=== PATIENT | female | born 1995 | race African-American/Black ===

== ENCOUNTER 2017-01-20 19:01 | Emergency (ER) | payer MEDICAID, OTHER ==
[~2017-01-20] VITALS: Ht 162.6 cm; Wt 72.3 kg
[2017-01-20 19:09] VITALS: BP 134/71; PULSE 77; RESP 16; TEMP 98.7; O2SAT 100
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
[2017-01-20] MEDS ORDERED: ROBA500T PO (19:44)
[2017-01-20] MEDS ORDERED: ORPHENADRINE INJ 60 MG/2 ML AMP IM ONE (19:45)
== END 2017-01-20 20:06 | disposition home or self-care (01) ==
LOC: PHEFT 19:01
DX: S13.4XXA Sprain of ligaments of cervical spine, initial encounter (principal); V49.50XA Passenger injured in collision with unspecified motor vehicles in traffic accident, initial encounter
CPT/HCPCS: 96372; 99284; J2360

== ENCOUNTER 2017-07-18 19:31 | Emergency (ER) | payer MEDICAID, OTHER ==
[~2017-07-18 19:31] MED LIST: ROBA500T PO
[2017-07-18 19:46] VITALS: BP 125/65; PULSE 104; RESP 20; TEMP 99.1; O2SAT 97
[2017-07-18 20:09] VITALS: BP 113/65; PULSE 112; RESP 18; O2SAT 98
[2017-07-18] MEDS ORDERED: PREN1PAK9 (20:09)
--- NOTE | 2017-07-18 20:10 | PD ---
HPI Chief Complaint: Cold / Flu Symptoms Time Seen by Provider: 20:02 Travel History International Travel<30 days: No Contact w/Intl Traveler<30days: No Traveled to known affect area: No History of Present Illness HPI 22-year-old female complains of headache, sore throat, coughing congestion and fever. Patient states that the symptoms started about 4 days ago. Patient states that headache is aching headache diffuse over the head. Patient denies any visual change. Patient denies any neck pain. Patient states that the cough is intermittent and dry cough. Patient denies any chest pain or shortness of breath. Patient denies abdominal pain. Patient denies any nausea vomiting diarrhea. Patient denies any dysuria frequency. Patient denies any vaginal discharge or bleeding. Patient is 2-1/2 month . Patient is taking vitamins. PFSH Past Medical History ?: Not LMP: 2.5 MONTHS AGO Social History Alcohol Use: Yes (occ) Tobacco Use: No Allergies-Medications (Allergen,Severity, Reaction): Coded Allergies: No Known Allergies (Verified Adverse Reaction, Unknown, 07/18/17) Reported Meds & Prescriptions Reported Meds & Active Scripts Active Robaxin (Methocarbamol) 500 Mg Tab 500 Mg PO QID 3 Days Reported + Complete Multi 18-0.8 & 290 mg ( Mv & Min W/Fe Prot [place]) 18 Mg Iron-800 Mcg-290 Mg-225 Mg Sudheer Review of Systems General / Constitutional: Positive: Fever Eyes: No: Visual changes HENT: Positive: Headaches, Sore Throat Cardiovascular: No: Chest Pain or Discomfort Respiratory: Positive: Cough, No: Shortness of Breath Gastrointestinal: No: Abdominal Pain Genitourinary: No: Dysuria Musculoskeletal: No: Pain Skin: No Rash Neurologic: No: Weakness Psychiatric: No: Depression Endocrine: No: Polydipsia Hematologic/Lymphatic: No: Easy Bruising Physical Exam Narrative GENERAL: Well-nourished, well-developed patient. SKIN: Focused skin assessment warm/dry. HEAD: Normocephalic. EYES: No scleral icterus. No injection or drainage. TM: Clear. Throat: Mild erythematous with edema. No exudate. NECK: Supple, trachea midline. No JVD. Patient has mild anterior cervical lymphadenopathy. No meningismus CARDIOVASCULAR: Regular rate and rhythm without murmurs, gallops, or rubs. RESPIRATORY: Breath sounds equal bilaterally. No accessory muscle use. GASTROINTESTINAL: Abdomen soft, non-tender, nondistended. MUSCULOSKELETAL: No cyanosis, or edema. BACK: Nontender without obvious deformity. No CVA tenderness. Data Data Last Documented VS Vital Signs Date Time Temp Pulse Resp B/P (MAP) Pulse Ox O2 Delivery O2 Flow Rate FiO2 07/18/17 20:09 112 18 113/65 (81) 98 Room Air 07/18/17 19:46 99.1 Orders Orders Group A Rapid Strep Screen (07/18/17 20:06) Influenzae A/B Antigen (07/18/17 20:06) Strep Culture (Group A) (07/18/17 20:10) MDM Medical Decision Making Medical Screen Exam Complete: Yes Emergency Medical Condition: Yes Interpretation(s) Influenza AB antigen negative. Strep screen negative. Differential Diagnosis Differential diagnosis complaint viral syndrome, pharyngitis, bronchitis, pneumonia. Narrative Course 22-year-old female with fever, headache, sore throat, coughing congestion. Diagnosis Primary Impression: Viral syndrome Patient Instructions: General Instructions Additional Instructions: Tylenol for fever, headache. Follow-up with personal physician. Return if persistent problem or worse. Med/Other Pt SpecificInfo: No Meds Exist/No RX given Disposition: 01 DISCHARGE HOME Condition: Stable Adama Aguilar MD Jul 18, 2017 20:10
[2017-07-18 21:39] VITALS: BP 120/68
== END 2017-07-18 21:47 | disposition home or self-care (01) ==
LOC: PHED 19:31
DX: O98.811 Other maternal infectious and parasitic diseases complicating pregnancy, first trimester (principal); B34.9 Viral infection, unspecified
CPT/HCPCS: 87081; 87804; 87880; 99283

== ENCOUNTER 2018-01-11 23:36 | Inpatient (IN) ==
[2018-01-12] MEDS ORDERED: fentaNYL Citrate Inj 100 MCG/2 ML Ampul IV.PUSH PRN ×2 (00:04)
[2018-01-12] MEDS ORDERED: Naloxone Inj 0.4 MG/ML Vial IV.PUSH PRN ×2 (00:04→07:53)
[2018-01-12] MEDS ORDERED: Oxytocin 30 Units/500ml Premix 30 UNITS/500 ML BAG IV.SIG ONE (00:04)
[2018-01-12] MEDS ORDERED: Sodium Chlor 0.9% Inj 500 ML IV.SIG PRN (00:04)
[2018-01-12] MEDS ORDERED: Sod Chloride 0.9% Inj 1,000 ML IV.CONT PRN (00:04)
[2018-01-12 00:15] LABS: Baso % (Auto) 0.3 % (0.0-2.0); Eos # (Auto) 0.1 th/mm3 (0.0-0.4); Eos % (Auto) 1.1 % (0.0-4.0); Hematocrit 36.8 % (35.0-46.0); Hemoglobin 12.3 gm/dL (11.6-15.3); Lymph # (Auto) 2.1 th/mm3 (1.0-4.8); Lymph % (Auto) 18.4 % (9.0-44.0); Mean Corpuscular HGB Conc 33.5 % (32.0-36.0); Mean Corpuscular Hemoglobin 28.6 pg (27.0-34.0); Mean Corpuscular Volume 85.4 fL (80.0-100.0); Mean Platelet Volume 9.7 fL (7.0-11.0); Mono # (Auto) 1.5 th/mm3 (0.0-0.9); Mono % (Auto) 13.2 % (0.0-8.0); Neut # (Auto) 7.8 th/mm3 (1.8-7.7); Platelet Count 190 th/mm3 (150-450); Red Blood Count 4.31 mil/mm3 (4.00-5.30); Red Cell Distribution Width 14.2 % (11.6-17.2); White Blood Count 11.7 th/mm3 (4.0-11.0)
[2018-01-12] MEDS ORDERED: Citric Acid/Sodium Citrate Liq 30 ML UDC PO SCH (00:15)
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
[2018-01-12] MEDS ORDERED: fentaNYL 2MCG-Bupiv 0.125% Epi 150 ML EPIDURAL ONE (00:25)
--- NOTE | 2018-01-12 00:32 | P.HPOB ---
History of Present Illness Primary Care Physician: NOT REQUIRED Chief Complaint: Loss of fluids History of Present Illness: 22 year old female at 37 weeks and 6 days by LMP presents after loss of fluids at 11 pm tonight. The fluid was clear. Contractions started at 7 pm and were 4 minutes apart. Feeling baby moving. Denies any vaginal bleeding. Denies any SOB, CP, edema of legs, or headache. No nausea, vomiting, painful urination or increased frequency. She has had no complications during her . Limited care with Dr. Pathak in [place] (only two visits and no recent labs). Denies any alcohol or tobacco use. GBS status unknown. Patient interested in epidural. No previous medical conditions or surgical history. Takes vitamins Denies any allergies. Weeks Gestation:: 37 Para: 0 : 1 Review of Systems Constitutional: Denies headache(s) Cardiovascular: Denies chest pain Respiratory: Denies cough, Denies shortness of breath, Denies wheezing Gastrointestinal: Denies abdominal pain, Denies nausea, Denies vomiting Genitourinary: Denies difficulty urinating, Denies painful urination Musculoskeletal: Denies joint swelling Skin/Breast: Denies rash Neurologic: Denies headache(s), Denies seizure-like activity Psychiatric: Denies change in appetite Endocrine: Denies rapid, pounding, or irregular heartbeat Allergic/Immunologic: Denies hives PMFSH - History History Provided By: Patient - Tobacco History Second Hand Smoke Exposure: No Smoking Status: Never smoker - Alcohol History How Often Do You Have a Drink Containing Alcohol: Never - Substance Use History Substance History: No History of Abuse - Travel History History of Recent Travel: No Medications and Allergies Active Medications: Active Medications Citric Acid/Sodium Citrate (Sodium Citrate/Citric Acid Liq) 30 ml PO [facility] Stop: 01/16/18 00:14 Fentanyl Citrate (Fentanyl Inj) 100 mcg IV.PUSH Q1H PRN PRN Reason: PAIN SCALE 6 TO 10 Fentanyl Citrate (Fentanyl Inj) 50 mcg IV.PUSH Q1H PRN PRN Reason: Pain Scale 3 - 5 Sodium Chloride (Ns Inj) 500 mls @ 1,000 mls/hr IV.SIG UNSCH PRN PRN Reason: SEE LABEL COMMENTS Sodium Chloride (Ns Inj) 1,000 mls @ 100 mls/hr IV.CONT .Q10H PRN PRN Reason: SEE LABEL COMMENTS Oxytocin (Pitocin 30 Units/Ns 500 Ml Premix) 30 units in 500 mls @ 999 mls/hr IV.SIG BOLUS ONE Stop: 01/12/18 00:34 Lactated Ringer's (Lr 1000 Ml Inj) 1,000 mls @ 125 mls/hr IV.CONT .Q8H MARITZA Lactated Ringer's (Lr 1000 Ml Inj) 1,000 mls @ 3,000 mls/hr IV.SIG UNSCH PRN PRN Reason: compromise or epidural Lidocaine HCl (Xylocaine 1% Inj) 0.1 ml I-DERMAL PRN PRN PRN Reason: For IV start Stop: 01/15/18 00:03 Lidocaine HCl (Xylocaine 1% Inj) 10 ml INFILTRATN PRN PRN PRN Reason: For episiotomy repair Stop: 01/14/18 00:03 Mineral Oil (Muri-Lube Oil) 10 ml TOPICAL PRN PRN PRN Reason: PRN perineal massage Naloxone HCl (Narcan Inj) 0.1 mg IV.PUSH Q2M PRN PRN Reason: for opiate reversal Ondansetron HCl (Zofran Inj) 4 mg IV.PUSH Q6H PRN PRN Reason: NAUSEA OR VOMITING Allergies Allergy/AdvReac Type Severity Reaction Status Date / Time No Known Allergies Allergy Unknown none Uncoded 01/11/18 19:57 Home Medications Medication Instructions Recorded Confirmed Type vit-iron fum-folic ac 1 tab PO DAILY 01/11/18 01/11/18 History [ Vitamin] Exam Vital signs: Vital Signs 01/11/18 23:52 01/11/18 23:53 Temperature 98.1 F Pulse Rate 82 Respiratory Rate 16 Blood Pressure 110/62 Intake & Output 01/11/18 01/11/18 01/12/18 06:59 18:59 06:59 Weight 70.76 kg Narrative: GENERAL: Well-nourished, well-developed patient. SKIN: Warm and dry. HEAD: Normocephalic and atraumatic. EYES: No scleral icterus. No injection or drainage. ENT: No nasal drainage noted. Mucous membranes pink. Airway patent. NECK: Supple, trachea midline. No JVD. CARDIOVASCULAR: Regular rate and rhythm without murmurs, gallops, or rubs. RESPIRATORY: Breath sounds equal bilaterally. No accessory muscle use. BREASTS: Bilateral exam showed no masses , no retractions, no nipple discharge. ABDOMEN/GI: Abdomen soft, non-tender, bowel sounds present, no rebound, no guarding GENITOURINARY: External Genitalia: intact and normal in appearance Cervix: mid Dilatation: 3 Effacement: 90 Station: 0 Presentation: vertex Membranes: ruptured Uterine Contractions: 4 min FHT's: Category: 1 Baseline: 144 Reactive: yes Variability: moderate Decels: none EXTREMITIES: No cyanosis or edema. BACK: Nontender without obvious deformity. No CVA tenderness. NEUROLOGICAL: Awake and alert. Motor and sensory grossly within normal limits. Five out of 5 muscle strength in all muscle groups. Normal speech. Results - Labs CBC & Chem 7: 01/12/18 00:09 Labs: Laboratory Results - last 24 hr 01/12/18 00:09 WBC 11.7 H RBC 4.31 Hgb 12.3 Hct 36.8 MCV 85.4 MCH 28.6 MCHC 33.5 RDW 14.2 Plt Count 190 MPV 9.7 Neut % (Auto) 67.0 Lymph % (Auto) 18.4 [place] % (Auto) 13.2 H Eos % (Auto) 1.1 Baso % (Auto) 0.3 Neut # (Auto) 7.8 H Lymph # (Auto) 2.1 [place] # (Auto) 1.5 H Eos # (Auto) 0.1 Baso # (Auto) 0.0 WBC Differential . Differential Comment Auto diff final Caprini VTE Risk Assessment Caprini VTE Risk Assessment: Moderate/High Risk (score >= 2) Caprini Risk Assessment Model: Point Value = 1 Point Value = 2 Point Value = 3 Point Value = 5 Age 41-60 Minor surgery BMI > 25 kg/m2 Swollen legs Varicose veins or History of unexplained or recurrent spontaneous Oral contraceptives or hormone replacement Sepsis (< 1 month) Serious lung disease, including pneumonia (< 1 month) Abnormal pulmonary function Acute myocardial infarction Congestive heart failure (< 1 month) History of inflammatory bowel disease Medical patient at bed rest Age 61-74 Arthroscopic surgery Major open surgery (> 45 min) Laparoscopic surgery (> 45 min) Malignancy Confined to bed (> 72 hours) Immobilizing plaster cast Central venous access Age >= 75 History of VTE Family history of VTE Factor V Leiden Prothrombin [id number] Lupus anticoagulant Anticardiolipin antibodies Elevated serum homocysteine Heparin-induced thrombocytopenia Other congenital or acquired thrombophilia Stroke (< 1 month) Elective arthroplasty Hip, pelvis, or leg fracture Acute spinal cord injury (< 1 month) Prophylaxis Regimen: Total Risk Factor Score Risk Level Prophylaxis Regimen 0-1 Low Early ambulation 2 Moderate Order ONE of the following: *Sequential Compression Device (SCD) *Heparin 5000 units SQ BID 3-4 Higher Order ONE of the following medications: *Heparin 5000 units SQ TID *Enoxaparin/Lovenox 40 mg SQ daily (WT < 150 kg, CrCl > 30 mL/min) *Enoxaparin/Lovenox 30 mg SQ daily (WT < 150 kg, CrCl > 10-29 mL/min) *Enoxaparin/Lovenox 30 mg SQ BID (WT < 150 kg, CrCl > 30 mL/min) AND/OR *Sequential Compression Device (SCD) 5 or more Highest Order ONE of the following medications: *Heparin 5000 units SQ TID (Preferred with Epidurals) *Enoxaparin/Lovenox 40 mg SQ daily (WT < 150 kg, CrCl > 30 mL/min) *Enoxaparin/Lovenox 30 mg SQ daily (WT < 150 kg, CrCl > 10-29 mL/min) *Enoxaparin/Lovenox 30 mg SQ BID (WT < 150 kg, CrCl > 30 mL/min) AND *Sequential Compression Device (SCD) Assessment and Plan - Diagnosis (1) Uterine contractions during Code(s): O62.2 - Other uterine inertia Status: Acute Plan: 22-year-old female at 37 weeks and 6 days by LMP presents with loss of fluid and uterine contractions. Denies any vaginal bleeding or decreased movement. Category 1 tracing reactive no decel and moderate variability. Cervical exam dilated 3 cm 90% and 0 station. Admit to labor and delivery GBS testing: Limited care unknown at this time UDS, G/C testing -Continue to monitor heart tracing
[2018-01-12] MEDS ORDERED: Lidocaine PF 1% Inj 5 ML Vial ONE (00:34)
[2018-01-12] MEDS ORDERED: Lidocaaine 1.5%/Epinephrine 1:200,000 PF Inj 5 ML Amp ONE (00:34)
[2018-01-12] MEDS ORDERED: Oxytocin 30 Units/500ml Premix 30 UNITS/500 ML BAG IV.SIG PRN (00:39)
[2018-01-12 00:44] LABS: Amphetamine Urine With Conf Neg (Neg); Benzodiazepine Urine With Conf Neg (Neg)
[2018-01-12 00:47] LABS: Bacteria,Urine Moderate /hpf; Bilirubin,Urine Negative (Negative); Clarity,Urine Cloudy (Clear); Color,Urine Yellow (Yellw/Straw); Glucose,Urine (UA) Negative (Negative); Leukocyte Esterase,Urine Large (Negative); Mucus,Urine Few /lpf (Occasional); Nitrite,Urine Negative (Negative); Specific Gravity,Urine 1.005 (1.002-1.035); Squamous Epithelial Cell,Urine 4 /hpf (0-5)
[2018-01-12] MEDS ORDERED: fentaNYL 2MCG-Bupiv 0.125% Epi 150 ML EPIDURAL PRN (01:01)
[2018-01-12] MEDS ORDERED: fentaNYL Citrate Inj 100 MCG/2 ML Ampul EPIDURAL ONE (01:01)
[2018-01-12 01:37] LABS: Hepatitis A IgM Antibody Nonreactive (Nonreactive); Hepatitits B Surface Antigen Nonreactive (Nonreactive)
[2018-01-12] MEDS ORDERED: Methylergonovine Inj 0.2 MG/ML Ampul ONE (07:51)
[2018-01-12] MEDS ORDERED: Acetaminophen 325 MG Tablet PO PRN (07:53)
[2018-01-12] MEDS ORDERED: Bisacodyl 10 MG Supp RECTAL PRN (07:53)
[2018-01-12] MEDS ORDERED: Methylergonovine Inj 0.2 MG/ML Ampul IM ONE (07:53)
[2018-01-12] MEDS ORDERED: Oxytocin 30 Units/500ml Premix 30 UNITS/500 ML BAG IV.CONT PRN (07:53)
[2018-01-12] MEDS ORDERED: Benzocaine 20% Top Spray 60 ML Can TOPICAL PRN (07:53)
[2018-01-12] MEDS ORDERED: Witch Hazel 50%/Glyderin 12.5% 40 Pad Jar RECTAL PRN (07:53)
--- NOTE | 2018-01-12 08:30 | P.OBDELI ---
Weeks Gestation: 37 Patient Started Active Labor: Yes Artificial Rupture of Membrane: No Anesthesia: Epidural Episiotomy: none Vaginal Delivery: Normal, Spontaneous Presentation: Occiput anterior Nuchal Cord: None Delayed Cord Clamping (45 sec): Yes Laceration: 1 deg (and b/l labial) Repair: Vicryl running Estimated blood loss (mL): 700 (methergine IM given, mostly EBL from lacerations ) Infant: Male Male A Infant Delivery Date: 01/12/18 Weight: 2655 kg score (1 min): 9 score (5 min): 9
[2018-01-12] MEDS ORDERED: Silver Nitrate/Potassium Nitrate Applicator Sticks TOPICAL ONE ×2 (09:30→10:33)
--- NOTE | 2018-01-12 09:44 | P.OBGPN ---
CTSP by Resident. When Raytec removed from vagina, constant trickling was seen. I examined pt. Fundus tender and no clots in BUFFY. Oozing from lateral lacerations. 100cc additional EBL. Vaginal packing placed along with soria. Continue to monitor.
[2018-01-12] MEDS: Senna/Docusate Sodium 8.6/50 MG Tablet PO SCH (10:43)
[2018-01-12 12:23] LABS: Baso % (Auto) 0.2 % (0.0-2.0); Eos % (Auto) 0.1 % (0.0-4.0); Hemoglobin 11.6 gm/dL (11.6-15.3); Lymph # (Auto) 0.8 th/mm3 (1.0-4.8); Lymph % (Auto) 4.3 % (9.0-44.0); Mean Corpuscular HGB Conc 33.2 % (32.0-36.0); Mean Corpuscular Hemoglobin 28.5 pg (27.0-34.0); Mean Corpuscular Volume 85.9 fL (80.0-100.0); Mean Platelet Volume 10.1 fL (7.0-11.0); Mono # (Auto) 1.7 th/mm3 (0.0-0.9); Mono % (Auto) 9.2 % (0.0-8.0); Neut # (Auto) 16.1 th/mm3 (1.8-7.7); Neut % (Auto) 86.2 % (16.0-70.0); Platelet Count 179 th/mm3 (150-450); Red Blood Count 4.07 mil/mm3 (4.00-5.30); White Blood Count 18.7 th/mm3 (4.0-11.0)
[2018-01-12] MEDS: miSOPROStol 200 MCG Tablet PO SCH ×2 (14:30→18:03)
[2018-01-12 14:35] LABS: Baso % (Auto) 0.1 % (0.0-2.0); Eos % (Auto) 0.1 % (0.0-4.0); Hematocrit 33.4 % (35.0-46.0); Hemoglobin 11.2 gm/dL (11.6-15.3); Lymph % (Auto) 5.5 % (9.0-44.0); Mean Corpuscular HGB Conc 33.5 % (32.0-36.0); Mean Corpuscular Hemoglobin 28.9 pg (27.0-34.0); Mean Corpuscular Volume 86.2 fL (80.0-100.0); Mean Platelet Volume 10.5 fL (7.0-11.0); Mono # (Auto) 1.9 th/mm3 (0.0-0.9); Mono % (Auto) 9.8 % (0.0-8.0); Neut # (Auto) 15.9 th/mm3 (1.8-7.7); Neut % (Auto) 84.5 % (16.0-70.0); Platelet Count 167 th/mm3 (150-450); Red Blood Count 3.87 mil/mm3 (4.00-5.30); Red Cell Distribution Width 14.1 % (11.6-17.2); White Blood Count 18.9 th/mm3 (4.0-11.0)
--- NOTE | 2018-01-12 14:43 | P.OBGPN ---
This is a patient who was signed out to me. Delivered with Dr. Wood. Noted to have bilateral labial lacerations per Dr. Wood EBL was 800 cc. I have seen the patient a total of 3 times she was seen approximately 3 hours postdelivery which is why started call the labial lacerations were noted to be hemostatic after packing removed. I subsequently cleansed the area applied I do not soaked gauze. Serial CBCs. And the last evaluation the laceration of the labia noted to be hemostatic no active fresh bright red bleeding noted. H& H noted to be stable we are waiting one additional. Patient also noted to be hemodynamically stable. Vital signs stable. Plan to be discharged to mother baby once last CBC comes back.
[2018-01-12] MEDS ORDERED: Diphtheria/Tetanus/Pertussis Vaccine Inj 0.5 ML Syringe IM ONE (16:00)
[2018-01-12] MEDS ORDERED: Measles/Mumps/Rubella Vaccine Inj 0.5 ML Vial SQ ONE (16:00)
[2018-01-12] MEDS ORDERED: Zolpidem Tartrate 5 MG Tablet PO PRN (21:00)
[2018-01-13] MEDS: Senna/Docusate Sodium 8.6/50 MG Tablet PO SCH ×2 (06:05→08:31)
[2018-01-13] MEDS: miSOPROStol 200 MCG Tablet PO SCH ×2 (08:31→12:34)
--- NOTE | 2018-01-13 08:43 | P.PNOB ---
Subjective Post day: 1 Interval history: Patient is a 22-year-old delivered at 37 weeks and 6 days. Patient is day 1 after spontaneous vaginal delivery. Patient's pain is well- controlled. Patient reports eating and drinking without any nausea or vomiting. Patient reports minimal bleeding. She had bilateral labial lacerations. Patient has passed gas but no bowel movements. Patient is walking without lower extremity pain or shortness of breath. Patient reports she is still contemplating contraception. She is breast-feeding. Objective Vital Signs/I&O: Vital Signs 01/12/18 08:45 01/12/18 09:00 01/12/18 09:01 Temperature 98.6 F Pulse Rate 67 75 92 H Respiratory Rate 18 18 Blood Pressure 113/73 113/68 75/35 L 01/12/18 09:09 01/12/18 09:15 01/12/18 09:16 Temperature Pulse Rate 72 Respiratory Rate 18 Blood Pressure 88/70 L 111/64 01/12/18 09:31 01/12/18 09:46 01/12/18 10:16 Temperature Pulse Rate 72 79 68 Respiratory Rate Blood Pressure 127/61 110/70 130/72 01/12/18 10:31 01/12/18 10:46 01/12/18 11:42 Temperature Pulse Rate 68 71 Respiratory Rate 18 Blood Pressure 118/65 117/73 01/12/18 12:01 01/12/18 14:06 01/12/18 14:23 Temperature Pulse Rate 90 Respiratory Rate 18 18 Blood Pressure 99/81 L 01/12/18 15:13 01/12/18 20:00 01/13/18 07:50 Temperature 98.1 F 98.5 F Pulse Rate 64 64 Respiratory Rate 18 18 Blood Pressure 100/66 112/68 105/61 Result Diagrams: 01/12/18 13:50 Objective Remarks: GENERAL: Well-nourished, well-developed patient. CARDIOVASCULAR: Regular rate and rhythm without murmurs, gallops, or rubs. RESPIRATORY: Breath sounds equal bilaterally. No accessory muscle use. ABDOMEN/GI: Abdomen soft, non-tender. Fundus: Firm, non-tender at umbilicus. GENITOURINARY: Light to moderate bleeding. EXTREMITIES: No cyanosis or edema, non-tender, without signs of DVT. Medications and IVs: Active Medications Acetaminophen (Tylenol) 650 mg PO Q4H PRN PRN Reason: PAIN SCALE 1 TO 2 Al Hydroxide/Mg Hydroxide (Milk Of Magnesia Liq) 30 ml PO Q12H PRN PRN Reason: Mild Constipation Benzocaine (Americaine 20% [place]) 1 spray TOPICAL Q4H PRN PRN Reason: For Perineum Discomfort Last Admin: 01/13/18 04:10 Dose: 1 spray Bisacodyl (Dulcolax Supp) 10 mg RECTAL DAILY PRN PRN Reason: SEVERE CONSITIPATION Citric Acid/Sodium Citrate (Sodium Citrate/Citric Acid Liq) 30 ml PO [employer] [facility] Stop: 01/16/18 00:14 Fentanyl Citrate (Fentanyl Inj) 100 mcg IV.PUSH Q1H PRN PRN Reason: PAIN SCALE 6 TO 10 Fentanyl Citrate (Fentanyl Inj) 50 mcg IV.PUSH Q1H PRN PRN Reason: Pain Scale 3 - 5 Sodium Chloride (Ns Inj) 500 mls @ 1,000 mls/hr IV.SIG UNSCH PRN PRN Reason: SEE LABEL COMMENTS Sodium Chloride (Ns Inj) 1,000 mls @ 100 mls/hr IV.CONT .Q10H PRN PRN Reason: SEE LABEL COMMENTS Last Admin: 01/12/18 09:50 Dose: 100 mls/hr Lactated Ringer's (Lr 1000 Ml Inj) 1,000 mls @ 125 mls/hr IV.CONT .Q8H [facility] Last Admin: 01/12/18 08:45 Dose: Not Given Lactated Ringer's (Lr 1000 Ml Inj) 1,000 mls @ 3,000 mls/hr IV.SIG UNSCH PRN PRN Reason: compromise or epidural Last Infusion: 01/12/18 03:19 Dose: Infused Fentanyl/Bupivacaine/Sodium Chlor (Fentanyl 2 Mcg-Bupiv 0.125% Epi) 150 mls @ 12 mls/hr EPIDURAL PRN PRN PRN Reason: for Labor Pain Last Admin: 01/12/18 01:05 Dose: 12 mls/hr Oxytocin (Pitocin 30 Units/Ns 500 Ml Premix) 30 units in 500 mls @ 100 mls/hr IV.CONT UNSCH PRN PRN Reason: Heavy bleeding Ibuprofen (Motrin) 800 mg PO Q8H PRN PRN Reason: For Cramping Last Admin: 01/13/18 03:19 Dose: 800 mg Lactulose (Lactulose Liq) 30 ml PO DAILY PRN PRN Reason: SEVERE CONSITIPATION Lidocaine HCl (Xylocaine 1% Inj) 0.1 ml I-DERMAL PRN PRN PRN Reason: For IV start Stop: 01/15/18 00:03 Lidocaine HCl (Xylocaine 1% Inj) 10 ml INFILTRATN PRN PRN PRN Reason: For episiotomy repair Stop: 01/14/18 00:03 Mineral Oil (Muri-Lube Oil) 10 ml TOPICAL PRN PRN PRN Reason: PRN perineal massage Misoprostol (Cytotec) 200 mcg PO TID [facility] Last Admin: 01/13/18 08:31 Dose: 200 mcg Naloxone HCl (Narcan Inj) 0.1 mg IV.PUSH Q2M PRN PRN Reason: for opiate reversal Ondansetron HCl (Zofran Odt) 4 mg PO Q6H PRN PRN Reason: NAUSEA OR VOMITING Oxycodone/Acetaminophen (Percocet 5/325 Mg) 1 tab PO Q4H PRN PRN Reason: PAIN 1-10 AND/OR FEVER >101F Last Admin: 01/13/18 02:55 Dose: 1 tab Senna/Docusate Sodium (Ambreen-Colace) 1 tab PO BID [facility] Last Admin: 01/13/18 08:31 Dose: 1 tab Sennosides (Senokot) 17.2 mg PO Q12H PRN PRN Reason: Moderate Constipation Last Admin: 01/13/18 03:20 Dose: 17.2 mg Sodium Chloride (Ns Flush) 2 ml IV.FLUSH BID [facility] Last Admin: 01/13/18 08:32 Dose: 2 ml Sodium Chloride (Ns Flush) 2 ml IV.FLUSH PRN PRN PRN Reason: FLUSH AFTER USING IV ACCESS Witch [place]/Glycerin (Tucks Pads) 1 applicatio RECTAL QID PRN PRN Reason: HEMORRHOIDS Last Admin: 01/13/18 04:11 Dose: 1 applicatio Zolpidem Tartrate (Ambien) 5 mg PO HS PRN PRN Reason: SLEEP Assessment and Plan - Diagnosis (1) Normal course Code(s): Z39.2 - Encounter for routine follow-up Status: Acute - Plan Patient is a 22-year-old delivered at 37 weeks and 6 days. Patient is day 1 after spontaneous vaginal delivery. --AF VSS --Repeat CBC this morning to monitor hemoglobin prior to discharge --Continue routine care --Motrin and Percocet when necessary for pain --Encourage OOB --Pelvic rest for 6 weeks will need follow-up appointment at that time. --Contraception: Patient still contemplating --Anticipate discharge this afternoon if patient's hemoglobin is stable and if baby is discharged.
[2018-01-13 09:26] LABS: Baso % (Auto) 0.3 % (0.0-2.0); Eos # (Auto) 0.2 th/mm3 (0.0-0.4); Hematocrit 32.2 % (35.0-46.0); Hemoglobin 10.7 gm/dL (11.6-15.3); Lymph # (Auto) 2.4 th/mm3 (1.0-4.8); Lymph % (Auto) 14.6 % (9.0-44.0); Mean Corpuscular HGB Conc 33.4 % (32.0-36.0); Mean Corpuscular Hemoglobin 28.8 pg (27.0-34.0); Mean Corpuscular Volume 86.4 fL (80.0-100.0); Mono # (Auto) 1.6 th/mm3 (0.0-0.9); Mono % (Auto) 9.8 % (0.0-8.0); Neut # (Auto) 12.1 th/mm3 (1.8-7.7); Neut % (Auto) 74.3 % (16.0-70.0); Platelet Count 166 th/mm3 (150-450); Red Blood Count 3.72 mil/mm3 (4.00-5.30); White Blood Count 16.3 th/mm3 (4.0-11.0)
[2018-01-14 08:05] VITALS: BP 96/50; PULSE 78; RESP 16; TEMP 98.2
--- NOTE | 2018-01-14 08:25 | P.PNOB ---
Subjective Post day: 2 Interval history: Patient is a 22-year-old delivered at 37 weeks and 6 days. Patient is day 2 after spontaneous vaginal delivery. Patient's pain is well- controlled. Patient reports eating and drinking without any nausea or vomiting. Patient reports minimal bleeding. She had bilateral labial lacerations. Patient has passed gas and had a bowel movement. Patient is walking without lower extremity pain or shortness of breath. Patient reports she is still contemplating contraception and will communicate with her OB provider at her follow up appointment. She is breast-feeding. Objective Vital Signs/I&O: Vital Signs 01/13/18 20:00 01/14/18 08:00 Temperature 98.1 F 98.2 F Pulse Rate 80 78 Respiratory Rate 18 16 Blood Pressure 133/71 96/50 L Result Diagrams: 01/13/18 09:10 Objective Remarks: GENERAL: Well-nourished, well-developed patient. CARDIOVASCULAR: Regular rate and rhythm without murmurs, gallops, or rubs. RESPIRATORY: Breath sounds equal bilaterally. No accessory muscle use. ABDOMEN/GI: Abdomen soft, non-tender. Fundus: Firm, non-tender at umbilicus. GENITOURINARY: Light to moderate bleeding. EXTREMITIES: No cyanosis or edema, non-tender, without signs of DVT. Medications and IVs: Active Medications Acetaminophen (Tylenol) 650 mg PO Q4H PRN PRN Reason: PAIN SCALE 1 TO 2 Al Hydroxide/Mg Hydroxide (Milk Of Magnesia Liq) 30 ml PO Q12H PRN PRN Reason: Mild Constipation Benzocaine (Americaine 20% [place]) 1 spray TOPICAL Q4H PRN PRN Reason: For Perineum Discomfort Last Admin: 01/13/18 04:10 Dose: 1 spray Bisacodyl (Dulcolax Supp) 10 mg RECTAL DAILY PRN PRN Reason: SEVERE CONSITIPATION Citric Acid/Sodium Citrate (Sodium Citrate/Citric Acid Liq) 30 ml PO FILLER IN [facility] Stop: 01/16/18 00:14 Fentanyl Citrate (Fentanyl Inj) 100 mcg IV.PUSH Q1H PRN PRN Reason: PAIN SCALE 6 TO 10 Fentanyl Citrate (Fentanyl Inj) 50 mcg IV.PUSH Q1H PRN PRN Reason: Pain Scale 3 - 5 Sodium Chloride (Ns Inj) 500 mls @ 1,000 mls/hr IV.SIG UNSCH PRN PRN Reason: SEE LABEL COMMENTS Sodium Chloride (Ns Inj) 1,000 mls @ 100 mls/hr IV.CONT .Q10H PRN PRN Reason: SEE LABEL COMMENTS Last Admin: 01/12/18 09:50 Dose: 100 mls/hr Lactated Ringer's (Lr 1000 Ml Inj) 1,000 mls @ 125 mls/hr IV.CONT .Q8H [facility] Last Admin: 01/12/18 08:45 Dose: Not Given Lactated Ringer's (Lr 1000 Ml Inj) 1,000 mls @ 3,000 mls/hr IV.SIG UNSCH PRN PRN Reason: compromise or epidural Last Infusion: 01/12/18 03:19 Dose: Infused Fentanyl/Bupivacaine/Sodium Chlor (Fentanyl 2 Mcg-Bupiv 0.125% Epi) 150 mls @ 12 mls/hr EPIDURAL PRN PRN PRN Reason: for Labor Pain Last Admin: 01/12/18 01:05 Dose: 12 mls/hr Oxytocin (Pitocin 30 Units/Ns 500 Ml Premix) 30 units in 500 mls @ 100 mls/hr IV.CONT UNSCH PRN PRN Reason: Heavy bleeding Ibuprofen (Motrin) 800 mg PO Q8H PRN PRN Reason: For Cramping Last Admin: 01/14/18 01:08 Dose: 800 mg Lactulose (Lactulose Liq) 30 ml PO DAILY PRN PRN Reason: SEVERE CONSITIPATION Lidocaine HCl (Xylocaine 1% Inj) 0.1 ml I-DERMAL PRN PRN PRN Reason: For IV start Stop: 01/15/18 00:03 Mineral Oil (Muri-Lube Oil) 10 ml TOPICAL PRN PRN PRN Reason: PRN perineal massage Misoprostol (Cytotec) 200 mcg PO TID [facility] Last Admin: 01/13/18 12:34 Dose: 200 mcg Naloxone HCl (Narcan Inj) 0.1 mg IV.PUSH Q2M PRN PRN Reason: for opiate reversal Ondansetron HCl (Zofran Odt) 4 mg PO Q6H PRN PRN Reason: NAUSEA OR VOMITING Oxycodone/Acetaminophen (Percocet 5/325 Mg) 1 tab PO Q4H PRN PRN Reason: PAIN 1-10 AND/OR FEVER >101F Last Admin: 01/13/18 15:06 Dose: 1 tab Senna/Docusate Sodium (Ambreen-Colace) 1 tab PO BID MARITZA Last Admin: 01/13/18 08:31 Dose: 1 tab Sennosides (Senokot) 17.2 mg PO Q12H PRN PRN Reason: Moderate Constipation Last Admin: 01/13/18 03:20 Dose: 17.2 mg Sodium Chloride (Ns Flush) 2 ml IV.FLUSH BID MARITZA Last Admin: 01/13/18 08:32 Dose: 2 ml Sodium Chloride (Ns Flush) 2 ml IV.FLUSH PRN PRN PRN Reason: FLUSH AFTER USING IV ACCESS Witch [place]ta/Glycerin (Tucks Pads) 1 applicatio RECTAL QID PRN PRN Reason: HEMORRHOIDS Last Admin: 01/13/18 04:11 Dose: 1 applicatio Zolpidem Tartrate (Ambien) 5 mg PO HS PRN PRN Reason: SLEEP Assessment and Plan - Diagnosis (1) Normal course Code(s): Z39.2 - Encounter for routine follow-up Status: Acute - Plan Patient is a 22-year-old delivered at 37 weeks and 6 days. Patient is day 2 after spontaneous vaginal delivery. --AF VSS --Hemoglobin stable --Continue routine care --Motrin when necessary for pain --Encourage OOB --Pelvic rest for 6 weeks will need follow-up appointment at that time. --Contraception: Patient still contemplating --Anticipate discharge today
[2018-01-14] MEDS: Senna/Docusate Sodium 8.6/50 MG Tablet PO SCH (08:50)
== END 2018-01-14 16:20 | disposition home or self-care (01) ==
LOC: HOBED 23:36 → H2E 23:36 → H1EA 01-12 14:58
PROVIDERS: ADMIT Obstetrics & Gynecology; ATTEND Obstetrics & Gynecology

== ENCOUNTER 2018-02-01 08:38 | Inpatient (IN) ==
[2018-02-01] MEDS ORDERED: Sod Chloride 0.9% Inj 1,000 ML IV.SIG ONE ×2 (08:59→13:15)
--- NOTE | 2018-02-01 09:08 | ED ---
HPI General Chief Complaint: Syncope Stated Complaint: fever Time Seen by Provider: 02/01/18 08:46 Source: patient Mode of arrival: EMS Limitations: no limitations History of Present Illness HPI narrative: The patient is a 22-year-old -[place] female who presents to the emergency department via EMS after a syncopal episode. The patient is a who had a vaginal delivery by Dr. Wood on January 12, 2018. The patient states she had no complications during , however, did have some hemorrhaging during the delivery. The patient had a 2-day hospitalization after delivery and was discharged home on January 14 per her report. The patient has had no further bleeding, however, did have some lower back pain and was evaluated at another emergency department yesterday where she was diagnosed with the patient has not yet filled her prescription. The patient states she got up this morning and went to the bathroom, felt lightheaded, dizzy, nauseated , and felt like her vision was dimming. The patient states she was splashing water on her face when she apparently had a syncopal episode in the bathroom. The patient called her boyfriend and apparently while the patient was in the hallway she started to have another syncopal episode and he caught her, prior to her striking the ground. She denies any significant headache, neck pain, chest pain, shortness of breath, nausea, vomiting, or abdominal pain upon arrival. She does complain of left mid back pain similar to her symptoms yesterday. She denies any dysuria, frequency, or urgency. The patient was noted to have a fever upon arrival. She denies any significant body aches, vaginal discharge, abdominal pain, or cough. Symptoms are moderate. MD complaint: Reports loss of consciousness and felt faint Onset (ago): minute(s) Prodromal symptoms: Reports vision changes, lightheaded, diaphoresis and nausea/ vomiting Witnessed: yes - by other Context: Reports at rest Injuries sustained associated with event: Reports none Current symptoms: Reports back to baseline Treatments prior to arrival: Reports none Related Data Previous Rx's Medication Instructions Recorded ibuprofen 800 mg PO Q8H PRN #30 tab 01/14/18 sennosides-docusate sodium [Senna 1 tab PO BID #30 tab 01/14/18 Plus] amoxicillin 500 mg PO BID #14 cap 01/31/18 ondansetron [Zofran ODT] 4 mg PO Q6H PRN #7 tab 01/31/18 Allergies Allergy/AdvReac Type Severity Reaction Status Date / Time No Known Allergies Allergy Verified 01/31/18 19:01 Review of Systems ROS: all other systems reviewed are negative [facility] Medical History Medical History Patient denies medical problems (Acute) Vaginal delivery (Acute) Surgical History Surgical History No history of previous surgery (Acute) Social History Social History Substance History: No History of Abuse Second Hand Smoke Exposure: No Smoking Status: Never smoker How Often Do You Have a Drink Containing Alcohol: Never Hx Recent Travel: No Recent Travel in [facility] [place] within the Last 8 Weeks: No Recent Out of Country Travel within the Last 8 Weeks: No Immunization History Tetanus Immunization: <5 Years Exam Narrative Exam Narrative: GENERAL: Awake, alert, pleasant 22-year-old female who appears her stated age and is in no acute respiratory distress. SKIN: Focused skin assessment warm/dry. Warm to the touch. HEAD: Atraumatic. Normocephalic. The patient's hair piece was removed, there is no obvious cephalohematoma, abrasions, or lacerations to the head. EYES: Pupils equal and round. No scleral icterus. No injection or drainage. ENT: No nasal bleeding or discharge. Mucous membranes pink and moist. NECK: Trachea midline. No JVD. No tenderness of the cervical vertebrae. CARDIOVASCULAR: Regular, tachycardic with a heart rate of 110. RESPIRATORY: No accessory muscle use. Clear to auscultation. Breath sounds equal bilaterally. GASTROINTESTINAL: Abdomen soft, non-tender, nondistended. No suprapubic discomfort. No guarding or rigidity. Back: No right CVA tenderness, moderate left CVA tenderness. MUSCULOSKELETAL: No obvious deformities. No clubbing. No cyanosis. No edema. NEUROLOGICAL: Awake and alert. No obvious cranial nerve deficits. Motor grossly within normal limits. Normal speech. PSYCHIATRIC: Appropriate mood and affect; insight and judgment normal. Course Initial Documented Vital Signs Temperature 102.1 F H 02/01/18 08:43 Pulse Rate 117 H 02/01/18 08:43 Respiratory Rate 17 02/01/18 08:43 Blood Pressure 119/57 L 02/01/18 08:43 Pulse Oximetry 100 02/01/18 08:43 Last Documented Vital Signs Temperature 102.1 F H 02/01/18 08:43 Pulse Rate 117 H 02/01/18 08:43 Respiratory Rate 17 02/01/18 08:43 Blood Pressure 119/57 L 02/01/18 08:43 Pulse Oximetry 99 02/01/18 08:59 Critical Care Time Critical Care Time: Yes Total Critical Care Time: 40 Attestation: Aggregate critical care time was 40 minutes. Time to perform other separately billable procedures was not included in the critical care time. My time did not include minutes spent treating any other patients simultaneously or on activities that did not directly contribute to the patient's treatment. The services I provided to this patient were to treat and/or prevent clinically significant deterioration that could result in: Septic shock, hypovolemia, acute kidney injury, dehydration, . I provided critical care services requiring my management, as noted below: Chart data review, documentation time, medication orders and management, vital sign assessments/reviewing monitor data, ordering and reviewing lab tests, ordering and interpreting/reviewing x-rays and diagnostic studies, care of the patient and discussion of the patient with the admitting physicians. Medical Decision Making MDM Narrative Medical decision making narrative: IV was established, labs are drawn and sent, and the patient was placed on cardiac telemetry monitoring and continuous pulse oximetry monitoring. EKG was ordered and interpreted. Orthostatic vital signs were obtained. I did review the EMR, the patient did have a UA consistent with UTI/pyelonephritis performed yesterday, white count was minimally elevated, however, decreased from her hospitalization and delivery. Abdominal exam is benign, she denies any vaginal discharge or bleeding, I doubt endometritis. However, patient is febrile and tachycardic with Surgeon criteria, therefore, blood culture and lactic acid were sent to lab. The patient was administer Rocephin 1 g intravenously. EMR did reveal the patient had Klebsiella in her urine during her delivery that was pansensitive, and was sensitive to Rocephin. The patient received 1 L of IV fluids. The patient's lactic acid was elevated at 6.2. White count was normal. However, patient was tachycardic and hypotensive consistent with sepsis/septic shock. The patient was ordered a total of 3 L of IV fluids. The patient CT of the abdomen and pelvis reveals a 4 x 3 mm stone with perinephric stranding. The patient appears to have sepsis secondary to pyelonephritis and possible infected left kidney stone. As the patient does have hypotension, tachycardia, and lactic acidosis, a call was placed to the on-call rail signal worker for admission. I discussed the patient with Dr. Meyers who request consultation with urology. Therefore, I discussed the patient with Dr. Tan who will evaluate the patient. Medical Screen Exam Complete: Yes Emergency Medical Condition: Yes Differential Diagnosis Differential Diagnosis: Differential diagnosis includes sepsis, pyelonephritis, endometritis, arrhythmia, pulmonary embolism, dehydration, acute kidney injury, pneumonia, abscess. Lab Data Result diagrams: 02/01/18 09:05 02/01/18 09:05 Lab Results 02/01/18 02/01/18 02/01/18 Range/Units 09:05 09:05 09:05 WBC 9.8 (4.0-11.0) th/mm3 RBC 3.99 L (4.00-5.30) mil/mm3 Hgb 11.9 (11.6-15.3) gm/dL Hct 34.2 L (35.0-46.0) % MCV 85.7 (80.0-100.0) fL MCH 29.7 (27.0-34.0) pg MCHC 34.7 (32.0-36.0) % RDW 13.9 (11.6-17.2) % Plt Count 200 D (150-450) th/mm3 MPV 9.3 (7.0-11.0) fL Neut % (Auto) 97.3 H (16.0-70.0) % Lymph % (Auto) 2.1 L (9.0-44.0) % [place] % (Auto) 0.5 (0.0-8.0) % Eos % (Auto) 0.0 (0.0-4.0) % Baso % (Auto) 0.1 (0.0-2.0) % Neut # (Auto) 9.5 H (1.8-7.7) th/mm3 Lymph # (Auto) 0.2 L (1.0-4.8) th/mm3 Rab[place] # (Auto) 0.1 (0.0-0.9) th/mm3 Eos # (Auto) 0.0 (0.0-0.4) th/mm3 Baso # (Auto) 0.0 (0.0-0.2) th/mm3 WBC Differential . Differential Comment Auto diff final Sodium 138 (136-145) meq/L Potassium 4.2 (3.5-5.1) meq/L Chloride 105 (98-107) meq/L Carbon Dioxide 20.9 L (21.0-32.0) meq/L Anion Gap 12 (5-15) meq/L BUN 14 (7-18) mg/dL Creatinine 1.93 H (0.50-1.00) mg/dL Estimated GFR 39 L (>89) mL/min Random Glucose 96 (74-106) mg/dL Lactic Acid 6.2 H* (0.4-2.0) mmol/L Calcium 7.9 L D (8.5-10.1) mg/dL Magnesium 1.0 L D (1.5-2.5) mg/dL Total Bilirubin 0.8 (0.2-1.0) mg/dL AST 25 (15-37) U/L ALT 14 (10-53) U/L Alkaline Phosphatase 104 (45-117) U/L Total Protein 6.8 D (6.4-8.2) g/dL Albumin 2.6 L D (3.4-5.0) g/dL Imaging Data Attestation: I personally reviewed and interpreted this imaging study as follows : My impression: Chest x-ray reveals no obvious infiltrate Radiologist's impression: Chest X-Ray 02/01/18 08:59 CONCLUSION: No acute cardiopulmonary abnormality is identified. Abdomen/Pelvis CT 02/01/18 09:41 CONCLUSION: There is a 4 x 3 mm stone in the left proximal ureter near the ureteropelvic junction causing mild left hydronephrosis. The obstructing stone also causes delayed enhancement and enlargement of the left kidney with left perinephric inflammation and trace fluid. ECG Data EKG Prior to Arrival: No Attestation: I personally reviewed and interpreted this ECG as follows: Interpretation: EKG reveals sinus tachycardia with a heart rate of 114. No evidence of WPW or Brugada syndrome. Discharge Plan Discharge Disposition Patient Disposition: 30 Still Patient Discharge Condition Condition: Serious Discharge Details Diagnosis: Sepsis, Pyelonephritis, Ureterolithiasis, Acute kidney injury (nontraumatic) Physicians Team ED Provider: Boy Zafar Primary Care Provider: UNKNOWN, Rxs /Orders / Referrals /Forms Prescriptions: No Action amoxicillin 500 mg capsule 500 mg PO BID Qty: 14 RF: 0 ondansetron [Zofran ODT] 4 mg tablet,disintegrating 4 mg PO Q6H PRN (Reason: nausea and vomiting) Qty: 7 RF: 0 ibuprofen 800 mg Tablet 800 mg PO Q8H PRN (Reason: For Cramping) Qty: 30 RF: 0 sennosides-docusate sodium [Senna Plus] 8.6-50 mg Tablet 1 tab PO BID Qty: 30 RF: 0 Status ED Status: Admitted Patient
--- NOTE | 2018-02-01 09:24 | XR ---
EXAM DATE: 02/01/2018 9:10 AM EDT AGE/SEX: 22 years / Female INDICATIONS: Fever CLINICAL DATA: This is the patient's initial encounter. Patient reports that signs and symptoms have been present for 1 day and indicates a pain score of 0/10. MEDICAL/SURGICAL HISTORY: None. None. COMPARISON: No prior exams available for comparison. FINDINGS: Portable AP view of the chest demonstrates a normal-sized cardiac silhouette. No effusion, consolidat ion, or pneumothorax is identified. The bones and soft tissues demonstrate no acute finding. EKG line s overlie the patient. CONCLUSION: No acute cardiopulmonary abnormality is identified. Electronically signed by: Luigi Dowling MD 02/01/2018 9:22 AM EDT
[2018-02-01 09:27] LABS: Baso % (Auto) 0.1 % (0.0-2.0); Hematocrit 34.2 % (35.0-46.0); Hemoglobin 11.9 gm/dL (11.6-15.3); Lymph # (Auto) 0.2 th/mm3 (1.0-4.8); Lymph % (Auto) 2.1 % (9.0-44.0); Mean Corpuscular HGB Conc 34.7 % (32.0-36.0); Mean Corpuscular Hemoglobin 29.7 pg (27.0-34.0); Mean Corpuscular Volume 85.7 fL (80.0-100.0); Mean Platelet Volume 9.3 fL (7.0-11.0); Mono # (Auto) 0.1 th/mm3 (0.0-0.9); Mono % (Auto) 0.5 % (0.0-8.0); Neut # (Auto) 9.5 th/mm3 (1.8-7.7); Neut % (Auto) 97.3 % (16.0-70.0); Platelet Count 200 th/mm3 (150-450); Red Blood Count 3.99 mil/mm3 (4.00-5.30); Red Cell Distribution Width 13.9 % (11.6-17.2); White Blood Count 9.8 th/mm3 (4.0-11.0)
[2018-02-01 09:40] LABS: Alanine Aminotransferase 14 U/L (10-53)
[2018-02-01 09:43] LABS: Alkaline Phosphatase 104 U/L (45-117); Total Protein 6.8 g/dL (6.4-8.2)
[2018-02-01 09:46] LABS: Albumin 2.6 g/dL (3.4-5.0); Anion Gap 12 meq/L (5-15); Blood Urea Nitrogen 14 mg/dL (7-18); Calcium 7.9 mg/dL (8.5-10.1); Carbon Dioxide 20.9 meq/L (21.0-32.0); Chloride 105 meq/L (98-107); Glomerular Filtration Rate 39 mL/min (>89); Glucose,Random 96 mg/dL (74-106); Sodium 138 meq/L (136-145)
[2018-02-01 09:47] LABS: Aspartate Aminotransferase 25 U/L (15-37); Potassium 4.2 meq/L (3.5-5.1)
[2018-02-01] MEDS: Sod Chloride 0.9% Inj 1,000 ML IV.SIG SCH ×2 (09:47→10:33)
[2018-02-01] MEDS ORDERED: Mag Sulf 1 gm/100 ml Premix 100 ML IV.SIG ONE (09:50)
[2018-02-01] MEDS ORDERED: fentaNYL Citrate Inj 100 MCG/2 ML Ampul IV.PUSH ONE (10:21)
[2018-02-01] MEDS ORDERED: Sod Chloride 0.9% Inj 1,000 ML IV.SIG SCH (10:30)
--- NOTE | 2018-02-01 10:33 | CT ---
EXAM DATE: 02/01/2018 10:19 AM EDT AGE/SEX: 22 years / Female INDICATIONS: Left lower back pain, fever, recent UTI CLINICAL DATA: This is the patient's initial encounter. Patient reports that signs and symptoms have been present for 1 day and indicates a pain score of 8/10. MEDICAL/SURGICAL HISTORY: None. None. ORAL CONTRAST: No oral contrast ingested. RADIATION DOSE: 6.82 CTDI (mGy) COMPARISON: No prior exams available for comparison. TECHNIQUE: Multiple contiguous axial images were obtained through the abdomen and pelvis following b olus infusion of 46 ml Visipaque 320 (iodixanol) nonionic water-soluble contrast as a single exam d ose. No oral contrast ingested. Using automated exposure control and adjustment of the mA and/or kV according to patient size, radiation dose was kept as low as reasonably achievable to obtain optimal diagnostic quality images. DICOM format image data is available electronically for review and compar christa. FINDINGS: Lower chest: No acute abnormality is identified. Hepatobiliary: No focal liver lesion is identified. Hepatic vasculature demonstrates no abnormality. No calcified gallstones are present. There is mild periportal edema. Kidneys: Left kidney is mildly asymmetrically enlarged and demonstrates delayed nephrogram and mild h ydronephrosis caused by a 4 x 3 mm stone in the left proximal ureter near the ureteropelvic junction. Mild perinephric fluid is also present. No other renal stones are visualized. Adrenal Glands: Within normal limits. Spleen: Within normal limits. Pancreas: Within normal limits. Vascular: The aorta is nonaneurysmal. Bowel/Mesentery: The stomach and small bowel demonstrate no abnormality. No acute colon abnormality i s seen. There is no free intraperitoneal air or fluid. The appendix is normal. Abdominal Wall: No hernia is visualized. Retroperitoneum: No lymphadenopathy. Bladder: No wall thickening or mass. Reproductive: Within normal limits. Inguinal: No lymphadenopathy or hernia. Musculoskeletal: No acute osseous abnormality is identified. CONCLUSION: There is a 4 x 3 mm stone in the left proximal ureter near the ureteropelvic junction causing mild le ft hydronephrosis. The obstructing stone also causes delayed enhancement and enlargement of the left kidney with left perinephric inflammation and trace fluid. Electronically signed by: Luigi Dowling MD 02/01/2018 10:32 AM EDT
[2018-02-01] MEDS ORDERED: Bisacodyl 10 MG Supp RECTAL PRN (11:02)
[2018-02-01] MEDS ORDERED: Potassium Chlor 20 mEq Premix 20 MEQ/100 ML PIGGYBACK IV.SIG PRN (11:13)
[2018-02-01] MEDS ORDERED: Magnesium Sulfate Inj 4 GM in Sodium Chlor 0.9% Inj 92 ML IV.SIG PRN (11:13)
[2018-02-01] MEDS ORDERED: Potassium Phosphate 500 MG Soluble Tablet PO PRN ×2 (11:13)
[2018-02-01] MEDS ORDERED: Potassium Chlor 40 mEq Premix 40 MEQ/100 ML PIGGYBACK IV.SIG PRN ×2 (11:13)
[2018-02-01] MEDS ORDERED: Magnesium Oxide 400 MG Tablet PO PRN (11:13)
[2018-02-01] MEDS ORDERED: Sodium Phosphate Inj 30 MMOL in Sodium Chlor 0.9% Inj 250 ML IV.SIG PRN (11:13)
[2018-02-01] MEDS ORDERED: Magnesium Sulfate Inj 2 GM in Sodium Chlor 0.9% Inj 96 ML IV.SIG PRN (11:13)
[2018-02-01] MEDS ORDERED: Potassium Chloride 25 MEQ Effervescent Tablet PO PRN (11:13)
[2018-02-01] MEDS ORDERED: Acetaminophen 325 MG Tablet PO ONE (11:50)
[2018-02-01 12:12] LABS: Bilirubin,Urine Negative (Negative); Clarity,Urine Clear (Clear); Color,Urine Straw (Yellw/Straw); Glucose,Urine (UA) Negative (Negative); Leukocyte Esterase,Urine Negative (Negative); Nitrite,Urine Negative (Negative)
--- NOTE | 2018-02-01 12:34 | CT ---
EXAM DATE: 02/01/2018 12:24 PM EDT AGE/SEX: 22 years / Female INDICATIONS: Syncope CLINICAL DATA: This is the patient's initial encounter. Patient reports that signs and symptoms have been present for 1 day and indicates a pain score of 7/10. MEDICAL/SURGICAL HISTORY: None. None. RADIATION DOSE: 56.44 CTDI (mGy) COMPARISON: No prior exams available for comparison. TECHNIQUE: CT of the head without contrast. Using automated exposure control and adjustment of the mA and/or kV according to patient size, radiation dose was kept as low as reasonably achievable to ob tain optimal diagnostic quality images. DICOM format image data is available electronically for revi ew and comparison. FINDINGS: Cerebrum: The ventricles are normal. No midline shift, mass lesion, hemorrhage or acute infarction. No extraaxial fluid collections are seen. Posterior Fossa: The cerebellum and brainstem demonstrate no acute abnormality. The 4th ventricle is midline. The cerebellopontine angle is within normal limits. Extracranial: The visualized sinuses are clear. Skull: The calvaria is intact. No skull fracture. CONCLUSION: Negative noncontrast head CT. . Electronically signed by: Luigi Dowling MD 02/01/2018 12:33 PM EDT
[2018-02-01] MEDS: Sod Chloride 0.9% Inj 1,000 ML IV.CONT SCH (12:47)
--- NOTE | 2018-02-01 13:05 | P.CONURO ---
History of Present Illness Service: Consult date: 02/01/18 Requesting Physician: Tasha Meyers Reason for Consult: Obstructing left ureteral calculus Primary Care Provider: UNKNOWN History of Present Illness: 22-year-old female who is status post a vaginal delivery on January 12 of this year and presented to the emergency room for management of a syncopal episode. Preliminary evaluation in the emergency room demonstrated tachycardia and a fever of 102.1 F. White blood cell count was not elevated and urinalysis was negative. A CT scan study was performed that demonstrated a 4 mm left proximal ureteral calculus with hydronephrosis. Patient was admitted to the ICU and a urology consult placed. I reviewed the actual CT scan images and concur with the radiologist impression. Patient denies a prior history of nephrolithiasis. Review of Systems All other systems reviewed negative except as stated in HPI [facility] - History History Provided By: Patient - Medical History Medical History: Medical History (Last Updated 01/31/18 @ 20:13 by Mouna Wells RN) Patient denies medical problems Vaginal delivery - Surgical History Surgical History: Surgical History (Last Reviewed 01/31/18 @ 20:02 by Mouna Wells RN) No history of previous surgery - Tobacco History Second Hand Smoke Exposure: No Smoking Status: Never smoker - Alcohol History How Often Do You Have a Drink Containing Alcohol: Never - Substance Use History Substance History: No History of Abuse - Travel History History of Recent Travel: No Recent Travel in the [place] Within the Last 8 Weeks: No Recent Travel Out of the Country Within the Last 8 Weeks: No - Immunization History Tetanus Immunization: >5 Years Hx Influenza Vaccine This Season: No Medications and Allergies Active Medications: Active Medications Acetaminophen (Tylenol) 650 mg PO Q6H PRN PRN Reason: PAIN 1-10 AND/OR FEVER >101F Al Hydroxide/Mg Hydroxide (Milk Of Magnkimmie Liq) 30 ml PO Q12H PRN PRN Reason: Mild Constipation Albuterol (Duoneb Neb (Prn)) 1 ampul NEB Q2HR NEB PRN PRN Reason: WHEEZING Bisacodyl (Dulcolax Supp) 10 mg RECTAL DAILY PRN PRN Reason: SEVERE CONSITIPATION Chlorhexidine Gluconate (Chlorhexidine 2% Cloth) 3 pack TOPICAL DAILY@0400 [facility] Stop: 02/07/18 03:59 Chlorhexidine Gluconate (Chlorhexidine 2% Cloth) 3 pack TOPICAL DAILY@0400 PRN PRN Reason: Extra cloth needed Stop: 02/07/18 03:59 Famotidine (Pepcid Pf Inj) 20 mg IV.PUSH Q12HR MARITZA Sodium Chloride (Ns Inj) 1,000 mls @ 0 mls/hr IV.SIG BOLUS MARITZA Last Infusion: 02/01/18 11:59 Dose: Infused Sodium Chloride (Ns Inj) 1,000 mls @ 0 mls/hr IV.SIG BOLUS MARITZA Sodium Chloride (Ns Inj) 1,000 mls @ 84 mls/hr IV.CONT .[id number] MARITZA Last Admin: 02/01/18 12:47 Dose: 84 mls/hr Magnesium Sulfate 4 gm/ Sodium (Chloride) 100 mls @ 50 mls/hr IV.SIG UNSCH PRN PRN Reason: For Magnesium 0.9 - 1.1 mg/dL Magnesium Sulfate 2 gm/ Sodium (Chloride) 100 mls @ 50 mls/hr IV.SIG UNSCH PRN PRN Reason: For Magnesium 1.2 - 1.6 mg/dL Potassium Chloride (Kcl 40 Meq Premix Inj) 40 meq in 100 mls @ 25 mls/hr IV.SIG Q2H PRN PRN Reason: For Potassium 2.8 - 3.2 mEq/L Potassium Chloride (Kcl 20 Meq Premix Inj) 20 meq in 100 mls @ 50 mls/hr IV.SIG Q2H PRN PRN Reason: For Potassium 3.3 - 3.5 mEq/L Potassium Chloride (Kcl 40 Meq Premix Inj) 40 meq in 100 mls @ 25 mls/hr IV.SIG UNSCH PRN PRN Reason: For Potassium 3.3 - 3.5 mEq/L Potassium Chloride (Kcl 20 Meq Premix Inj) 20 meq in 100 mls @ 50 mls/hr IV.SIG Q2H PRN PRN Reason: For Potassium 2.8 - 3.2 mEq/L Potassium Phosphate 30 mmol/ (Sodium Chloride) 260 mls @ 42 mls/hr IV.SIG UNSCH PRN PRN Reason: SEE LABEL COMMENTS Sodium Phosphate 30 mmol/ (Sodium Chloride) 260 mls @ 42 mls/hr IV.SIG UNSCH PRN PRN Reason: For Phosphorus < 2.5 mg/dL Lactulose (Lactulose Liq) 30 ml PO DAILY PRN PRN Reason: SEVERE CONSITIPATION Magnesium Oxide (Mag-Ox) 800 mg PO UNSCH PRN PRN Reason: For Magnesium 1.2 - 1.6 mg/dL Morphine Sulfate (Morphine Inj) 2 mg IV.PUSH Q2H PRN PRN Reason: PAIN SCALE 6 TO 10 Potassium Bicarb/Potassium Chloride (K-Lyte Cl Eff) 50 meq PO UNSCH PRN PRN Reason: For Potassium 3.3 - 3.5 mEq/L Potassium Phosphate (K-Phos Original) 2,000 mg PO Q4H PRN PRN Reason: Phosphorus Less Than 2.5 mg/dL Potassium Phosphate (K-Phos Original) 2,000 mg PO UNSCH PRN PRN Reason: SEE LABEL COMMENTS Senna/Docusate Sodium (Ambreen-Colace) 1 tab PO BID MARITZA Sennosides (Senokot) 17.2 mg PO Q12H PRN PRN Reason: Moderate Constipation Sodium Chloride (Ns Flush) 2 ml IV.FLUSH BID MARITZA Sodium Chloride (Ns Flush) 2 ml IV.FLUSH PRN PRN PRN Reason: FLUSH AFTER USING IV ACCESS Allergies Allergy/AdvReac Type Severity Reaction Status Date / Time No Known Allergies Allergy Verified 01/31/18 19:01 Physical Exam Vital Signs - 24 hr 02/01/18 08:43 02/01/18 08:59 02/01/18 11:18 Temperature 102.1 F H Pulse Rate 117 H 120 H Respiratory Rate 17 30 H Blood Pressure 119/57 L 91/53 L Pulse Oximetry 100 99 02/01/18 11:57 02/01/18 12:49 Temperature Pulse Rate Respiratory Rate 24 24 Blood Pressure Pulse Oximetry Physical Exam: GENERAL: This is a well-nourished, well-developed patient, in no apparent distress. SKIN: No rashes, ecchymoses or lesions. Cool and dry. HEAD: Atraumatic. Normocephalic. No temporal or scalp tenderness. EYES: Pupils equal round and reactive. Extraocular motions intact. No scleral icterus. No injection or drainage. ENT: Nose without bleeding, purulent drainage or septal hematoma. Throat without erythema, tonsillar hypertrophy or exudate. Uvula midline. Airway patent. NECK: Trachea midline. No JVD or lymphadenopathy. Supple, nontender, no meningeal signs. CARDIOVASCULAR: Regular rate and rhythm without murmurs, gallops, or rubs. RESPIRATORY: Clear to auscultation. Breath sounds equal bilaterally. No wheezes , rales, or rhonchi. GASTROINTESTINAL: Abdomen soft, non-tender, nondistended. No hepato-splenomegaly , or palpable masses. No guarding. GENITOURINARY: No CVA tenderness, bladder not distended MUSCULOSKELETAL: Extremities without clubbing, cyanosis, or edema. No joint tenderness, effusion, or edema noted. No calf tenderness. Negative Homans sign bilaterally. NEUROLOGICAL: Awake and alert. Cranial nerves II through XII intact. Motor and sensory grossly within normal limits. Five out of 5 muscle strength in all muscle groups. Normal speech. Laboratory Results - last 24 hr 02/01/18 02/01/18 02/01/18 09:05 09:05 09:05 WBC 9.8 RBC 3.99 L Hgb 11.9 Hct 34.2 L MCV 85.7 MCH 29.7 MCHC 34.7 RDW 13.9 Plt Count 200 D MPV 9.3 Neut % (Auto) 97.3 H Lymph % (Auto) 2.1 L [place] % (Auto) 0.5 Eos % (Auto) 0.0 Baso % (Auto) 0.1 Neut # (Auto) 9.5 H Lymph # (Auto) 0.2 L [place] # (Auto) 0.1 Eos # (Auto) 0.0 Baso # (Auto) 0.0 WBC Differential . Differential Comment Auto diff final Sodium 138 Potassium 4.2 Chloride 105 Carbon Dioxide 20.9 L Anion Gap 12 BUN 14 Creatinine 1.93 H Estimated GFR 39 L Random Glucose 96 Lactic Acid 6.2 H* Calcium 7.9 L D Magnesium 1.0 L D Total Bilirubin 0.8 AST 25 ALT 14 Alkaline Phosphatase 104 Total Protein 6.8 D Albumin 2.6 L D Urine Color Urine Clarity Urine pH Ur Specific [place] Urine Protein Urine Glucose (UA) Urine Ketones Urine Occult Blood Urine Nitrate Urine Bilirubin Urine Urobilinogen Ur Leukocyte Esterase Urine RBC Urine WBC Micro UA Comment Ur Microscopic Review Urine Culture Comments 02/01/18 11:45 WBC RBC Hgb Hct MCV MCH MCHC RDW Plt Count MPV Neut % (Auto) Lymph % (Auto) [place] % (Auto) Eos % (Auto) Baso % (Auto) Neut # (Auto) Lymph # (Auto) [place] # (Auto) Eos # (Auto) Baso # (Auto) WBC Differential Differential Comment Sodium Potassium Chloride Carbon Dioxide Anion Gap BUN Creatinine Estimated GFR Random Glucose Lactic Acid Calcium Magnesium Total Bilirubin AST ALT Alkaline Phosphatase Total Protein Albumin Urine Color Straw Urine Clarity Clear Urine pH 6.0 Ur Specific [place] 1.010 Urine Protein Negative Urine Glucose (UA) Negative Urine Ketones Negative Urine Occult Blood Moderate H Urine Nitrate Negative Urine Bilirubin Negative Urine Urobilinogen Less than 2 Ur Leukocyte Esterase Negative Urine RBC Less than 1 Urine WBC Less than 1 Micro UA Comment Culture not ind Ur Microscopic Review Not Reportable Urine Culture Comments Culture not ind Result Diagrams: 02/01/18 09:05 02/01/18 09:05 Imaging: ITS Impressions Chest X-Ray 02/01/18 08:59 CONCLUSION: No acute cardiopulmonary abnormality is identified. Abdomen/Pelvis CT 02/01/18 09:41 CONCLUSION: There is a 4 x 3 mm stone in the left proximal ureter near the ureteropelvic junction causing mild left hydronephrosis. The obstructing stone also causes delayed enhancement and enlargement of the left kidney with left perinephric inflammation and trace fluid. Head CT 02/01/18 12:02 CONCLUSION: Negative noncontrast head CT. . Assessment and Plan - Assessment (1) Ureteral calculus, left Code(s): N20.1 - Calculus of ureter Status: Acute (2) Hydronephrosis of left kidney Code(s): N13.30 - Unspecified hydronephrosis Status: Acute (3) Pyelonephritis Code(s): N12 - Tubulo-interstitial nephritis, not specified as acute or chronic Status: Acute - Plan Urologic impression: 1. Obstructing 4 mm left proximal ureteral calculus causing hydronephrosis 2. Pyelonephritis related to obstructing calculus Plan: 1. Keep the patient n.p.o. 2. We will bring the patient to the operating room suite today for cystoscopy, left retrograde pyelogram and left ureteral stent placement
--- NOTE | 2018-02-01 13:29 | ECG ---
Date Performed: 02/01/2018 Time Performed: 10:15:30 PTAGE: 22 years EKG: SINUS TACHYCARDIA ABNORMAL RHYTHM ECG PREVIOUS TRACING : 10/21/2017 18.42 Compared to previous tracing, sinus tachycardia has replace d normal Sinus rhythm DOCTOR: Seth Meraz Interpretating Date/Time 02/01/2018 13:27:53
--- NOTE | 2018-02-01 13:44 | P.PCN ---
Date of procedure: 02/01/18 Pre-op diagnosis: Septic shock Post-op diagnosis: same Procedure: US guided LIJ central line Central line checklist completed, timeout completed. I wore a surgical cap, mask with protective eyewear, full gown and sterile gloves throughout the procedure. Left IJ region was prepped using chlorhexidine scrub and draped in sterile fashion. The LIJ was identified using the ultrasound. Anesthesia was achieved over the vein using 1% lidocaine. The introducer needle was inserted into the LIJ under direct ultrasound visualization. Venous blood was withdrawn. The syringe was removed and a guidewire was advanced into the introducer needle. A small incision was made at the skin surface with a scalpel and the introducer needle was exchanged for a dilator over the guidewire. After appropriate dilation was obtained, the dilator was exchanged over the wire for a triple lumen, 7F, antibiotic coated central venous catheter. The wire was removed and the catheter was sutured in place at 18 cm. A sterile central line dressing was placed over the catheter at the insertion site. The patient tolerated the procedure without any hemodynamic compromise. At time of procedure completion, all ports aspirated and flushed properly. Post-procedure chest x-ray is pending at this time. Anesthesia: local Surgeon: Tasha Meyers Estimated blood loss (mL): 1 Pathology: none sent Condition: critical Disposition: ICU
[2018-02-01] MEDS ORDERED: Phenylephrine/NS 1000 MCG/10ML Syringe IV.PUSH ONE (14:24)
[2018-02-01] MEDS ORDERED: Succinylcholine Inj 100 MG/5 ML Syringe IV.PUSH ONE (14:24)
[2018-02-01] MEDS ORDERED: Lidocaine PF 1% Inj 5 ML Syringe OTHER ONE (14:24)
--- NOTE | 2018-02-01 14:35 | P.HPCC ---
History of Present Illness Primary Care Physician: UNKNOWN Chief Complaint: Syncope, fever History of Present Illness: The patient is a 22-year-old -[place] female who had a vaginal delivery on 01/12/2018. She presented to the emergency department at [place] yesterday with fever and UTI symptoms, was diagnosed with UTI and placed on amoxicillin. She again presented to the [facility] today with syncopal episode x2. Apparently she was lightheaded and dizzy prior to syncope. In the ED she had fever, tachycardia and temperature of 102.1 F. Patient was hypotensive with a lactic acid of 6.2. Patient received 3 L fluid boluses and 1 g of Rocephin IV. A CT scan study was performed that demonstrated a 4 mm left proximal ureteral calculus with left hydronephrosis. Urology consult placed with Dr. Tan. Critical care medicine was requested to admit the patient I evaluated the patient in the ED. She appeared very critical lethargic but wakes up easily. After 3 L of saline patient's blood pressure was in the mid 70s. Patient was immediately moved to the ICU and additional 2 L fluid boluses were ordered. After patient arrived in the ICU she remained hypotensive despite a total of 5 L bolus. I have added Levophed and also placed a left IJ central line. Her urine culture on 01/11/2018 is growing Klebsiella pansensitive. Urine culture from yesterday has GNR. I have discussed with Dr. Guerrero patient will get emergency left ureteral stent placement in the OR. I have increased Rocephin to 2 g daily, and also give 1 dose of vancomycin. Acute kidney injury is secondary to severe sepsis septic shock and ATN - Diagnosis (1) Septic shock (2) Syncope (3) Acute pyelonephritis (4) Acute kidney injury (nontraumatic) (5) Hydronephrosis of left kidney (6) Lactic acidemia (7) Ureteral calculus, left Inpatient Certification: I certify that the inpatient services were ordered in accordance with Medicare regulations governing the order. This includes certification that hospital inpatient services are reasonable and necessary and in the case of services not specified as inpatient-only under 42 CFR 419.22(n), that they are appropriately provided as inpatient services in accordance to with the 2-midnight benchmark under 43 CFR 412.3(e) Estimated Total Length of Stay (Days): 5 Plans for Post Hospital Care: Not yet determined Review of Systems All other systems reviewed negative except as stated in HPI FOR[facility]LY [facility] - History History Provided By: Patient - Medical History Medical History: Medical History (Last Reviewed 02/01/18 @ 14:34 by Tasha Meyers MD) Patient denies medical problems Vaginal delivery - Surgical History Surgical History: Surgical History (Last Reviewed 02/01/18 @ 14:34 by Tasha Meyers MD) No history of previous surgery - Tobacco History Second Hand Smoke Exposure: No Smoking Status: Never smoker - Alcohol History How Often Do You Have a Drink Containing Alcohol: Never - Substance Use History Substance History: No History of Abuse - Travel History History of Recent Travel: No Recent Travel in the [place] Within the Last 8 Weeks: No Recent Travel Out of the Country Within the Last 8 Weeks: No - Immunization History Tetanus Immunization: >5 Years Hx Influenza Vaccine This Season: No Medications and Allergies Active Medications: Active Medications Acetaminophen (Tylenol) 650 mg PO Q6H PRN PRN Reason: PAIN 1-10 AND/OR FEVER >101F Al Hydroxide/Mg Hydroxide (Milk Of Archana Tam) 30 ml PO Q12H PRN PRN Reason: Mild Constipation Albuterol (Duoneb Neb (Prn)) 1 ampul NEB Q2HR NEB PRN PRN Reason: WHEEZING Bisacodyl (Dulcolax Supp) 10 mg RECTAL DAILY PRN PRN Reason: SEVERE CONSITIPATION Chlorhexidine Gluconate (Chlorhexidine 2% Cloth) 3 pack TOPICAL DAILY@0400 MARITZA Stop: 02/07/18 03:59 Chlorhexidine Gluconate (Chlorhexidine 2% Cloth) 3 pack TOPICAL DAILY@0400 PRN PRN Reason: Extra cloth needed Stop: 02/07/18 03:59 Famotidine (Pepcid Pf Inj) 20 mg IV.PUSH Q12HR MARITZA Sodium Chloride (Ns Inj) 1,000 mls @ 0 mls/hr IV.SIG BOLUS MARITZA Last Infusion: 02/01/18 11:59 Dose: Infused Sodium Chloride (Ns Inj) 1,000 mls @ 0 mls/hr IV.SIG BOLUS MARITZA Sodium Chloride (Ns Inj) 1,000 mls @ 84 mls/hr IV.CONT .[id number] MARITZA Last Admin: 02/01/18 12:47 Dose: 84 mls/hr Magnesium Sulfate 4 gm/ Sodium (Chloride) 100 mls @ 50 mls/hr IV.SIG UNSCH PRN PRN Reason: For Magnesium 0.9 - 1.1 mg/dL Magnesium Sulfate 2 gm/ Sodium (Chloride) 100 mls @ 50 mls/hr IV.SIG UNSCH PRN PRN Reason: For Magnesium 1.2 - 1.6 mg/dL Potassium Chloride (Kcl 40 Meq Premix Inj) 40 meq in 100 mls @ 25 mls/hr IV.SIG Q2H PRN PRN Reason: For Potassium 2.8 - 3.2 mEq/L Potassium Chloride (Kcl 20 Meq Premix Inj) 20 meq in 100 mls @ 50 mls/hr IV.SIG Q2H PRN PRN Reason: For Potassium 3.3 - 3.5 mEq/L Potassium Chloride (Kcl 40 Meq Premix Inj) 40 meq in 100 mls @ 25 mls/hr IV.SIG UNSCH PRN PRN Reason: For Potassium 3.3 - 3.5 mEq/L Potassium Chloride (Kcl 20 Meq Premix Inj) 20 meq in 100 mls @ 50 mls/hr IV.SIG Q2H PRN PRN Reason: For Potassium 2.8 - 3.2 mEq/L Potassium Phosphate 30 mmol/ (Sodium Chloride) 260 mls @ 42 mls/hr IV.SIG UNSCH PRN PRN Reason: SEE LABEL COMMENTS Sodium Phosphate 30 mmol/ (Sodium Chloride) 260 mls @ 42 mls/hr IV.SIG UNSCH PRN PRN Reason: For Phosphorus < 2.5 mg/dL Lactulose (Lactulose Liq) 30 ml PO DAILY PRN PRN Reason: SEVERE CONSITIPATION Magnesium Oxide (Mag-Ox) 800 mg PO UNSCH PRN PRN Reason: For Magnesium 1.2 - 1.6 mg/dL Morphine Sulfate (Morphine Inj) 2 mg IV.PUSH Q2H PRN PRN Reason: PAIN SCALE 6 TO 10 Potassium Bicarb/Potassium Chloride (K-Lyte Cl Eff) 50 meq PO UNSCH PRN PRN Reason: For Potassium 3.3 - 3.5 mEq/L Potassium Phosphate (K-Phos Original) 2,000 mg PO Q4H PRN PRN Reason: Phosphorus Less Than 2.5 mg/dL Potassium Phosphate (K-Phos Original) 2,000 mg PO UNSCH PRN PRN Reason: SEE LABEL COMMENTS Senna/Docusate Sodium (Ambreen-Colace) 1 tab PO BID MARITZA Sennosides (Senokot) 17.2 mg PO Q12H PRN PRN Reason: Moderate Constipation Sodium Chloride (Ns Flush) 2 ml IV.FLUSH BID MARITZA Sodium Chloride (Ns Flush) 2 ml IV.FLUSH PRN PRN PRN Reason: FLUSH AFTER USING IV ACCESS Allergies Allergy/AdvReac Type Severity Reaction Status Date / Time No Known Allergies Allergy Verified 01/31/18 19:01 Results - Labs CBC & Chem 7: 02/01/18 09:05 02/01/18 09:05 Labs: Short CBC 02/01/18 Range/Units 09:05 WBC 9.8 (4.0-11.0) th/mm3 Hgb 11.9 (11.6-15.3) gm/dL Hct 34.2 L (35.0-46.0) % Plt Count 200 D (150-450) th/mm3 BMP 02/01/18 09:05 Sodium 138 Potassium 4.2 Chloride 105 Carbon Dioxide 20.9 L BUN 14 Creatinine 1.93 H Calcium 7.9 L D Liver Function 02/01/18 Range/Units 09:05 Total Bilirubin 0.8 (0.2-1.0) mg/dL AST 25 (15-37) U/L ALT 14 (10-53) U/L Alkaline Phosphatase 104 (45-117) U/L Albumin 2.6 L D (3.4-5.0) g/dL Urine 02/01/18 Range/Units 11:45 Urine Color Straw (Yellw/Straw) Urine Clarity Clear (Clear) Urine pH 6.0 (5.0-8.5) Ur Specific Moran 1.010 (1.002-1.035) Urine Protein Negative (Neg-Trace) mg/dL Urine Glucose (UA) Negative (Negative) mg/dL - Imaging Impressions Chest X-Ray 02/01/18 08:59 CONCLUSION: No acute cardiopulmonary abnormality is identified. Abdomen/Pelvis CT 02/01/18 09:41 CONCLUSION: There is a 4 x 3 mm stone in the left proximal ureter near the ureteropelvic junction causing mild left hydronephrosis. The obstructing stone also causes delayed enhancement and enlargement of the left kidney with left perinephric inflammation and trace fluid. Head CT 02/01/18 12:02 CONCLUSION: Negative noncontrast head CT. . Exam Vital signs: Vital Signs 02/01/18 08:43 02/01/18 08:59 02/01/18 11:18 Temperature 102.1 F H Pulse Rate 117 H 120 H Respiratory Rate 17 30 H Blood Pressure 119/57 L 91/53 L Pulse Oximetry 100 99 02/01/18 11:57 02/01/18 12:49 02/01/18 13:57 Temperature Pulse Rate 130 H Respiratory Rate 24 24 28 H Blood Pressure Pulse Oximetry 99 02/01/18 14:00 Temperature Pulse Rate 132 H Respiratory Rate 34 H Blood Pressure 99/50 L Pulse Oximetry 99 Intake & Output 01/31/18 02/01/18 02/01/18 18:59 06:59 18:59 Intake Total 3200 / 3200 Output Total 650 / 650 Balance 2550 / 2550 Weight 75.5 kg Intake: IV 3200 / 3200 Magnesium Sulfate 1 gm/D5W 100 100 / 100 ml Premix 100 ML @ 100 mls/hr IV.SIG ONCE ONE Rx#:[id number] NS Inj 1,000 ML @ Wide Open IV. 3000 / 3000 SIG BOLUS MARITZA Rx#:[id number] Rocephin Inj 1,000 MG In NS Inj 100 / 100 100 ML @ 200 mls/hr IV.SIG ONCE ONE Rx#:[id number] Output: Urine Amount (Catheter) 650 / 650 Indwelling Urethral Catheter 650 / 650 Other: Weight On Admission 75.5 kg Narrative: GENERAL: Awake, alert, young -[place] female who is critically ill appearing in shock SKIN: Focused skin assessment warm/dry. HEAD: Atraumatic. Normocephalic. EYES: Pupils equal and round. No scleral icterus. No injection or drainage. ENT: No nasal bleeding or discharge. Mucous membranes dry NECK: Trachea midline. No JVD. CARDIOVASCULAR: Sinus, tachycardic with a heart rate of 120. Hypotensive with systolic BP in mid 70s RESPIRATORY: No accessory muscle use. Clear to auscultation. Breath sounds equal bilaterally. GASTROINTESTINAL: Abdomen soft, non-tender, nondistended. No suprapubic discomfort. Positive left CVA tenderness. : Per ED RN who placed Peres there was no vaginal bleeding or discharge MUSCULOSKELETAL: No obvious deformities. No clubbing. No cyanosis. No edema. NEUROLOGICAL: Awake and alert. No obvious cranial nerve deficits. Motor grossly within normal limits. Normal speech. Septic Shock Reassessment Septic shock perfusion: reassessment completed Caprini VTE Risk Assessment Caprini VTE Risk Assessment: Moderate/High Risk (score >= 2) VTE Pharmacological Exception Reason: High risk for bleeding Caprini Risk Assessment Model: Point Value = 1 Point Value = 2 Point Value = 3 Point Value = 5 Age 41-60 Minor surgery BMI > 25 kg/m2 Swollen legs Varicose veins or History of unexplained or recurrent spontaneous Oral contraceptives or hormone replacement Sepsis (< 1 month) Serious lung disease, including pneumonia (< 1 month) Abnormal pulmonary function Acute myocardial infarction Congestive heart failure (< 1 month) History of inflammatory bowel disease Medical patient at bed rest Age 61-74 Arthroscopic surgery Major open surgery (> 45 min) Laparoscopic surgery (> 45 min) Malignancy Confined to bed (> 72 hours) Immobilizing plaster cast Central venous access Age >= 75 History of VTE Family history of VTE Factor V Leiden Prothrombin [id number] Lupus anticoagulant Anticardiolipin antibodies Elevated serum homocysteine Heparin-induced thrombocytopenia Other congenital or acquired thrombophilia Stroke (< 1 month) Elective arthroplasty Hip, pelvis, or leg fracture Acute spinal cord injury (< 1 month) Prophylaxis Regimen: Total Risk Factor Score Risk Level Prophylaxis Regimen 0-1 Low Early ambulation 2 Moderate Order ONE of the following: *Sequential Compression Device (SCD) *Heparin 5000 units SQ BID 3-4 Higher Order ONE of the following medications: *Heparin 5000 units SQ TID *Enoxaparin/Lovenox 40 mg SQ daily (WT < 150 kg, CrCl > 30 mL/min) *Enoxaparin/Lovenox 30 mg SQ daily (WT < 150 kg, CrCl > 10-29 mL/min) *Enoxaparin/Lovenox 30 mg SQ BID (WT < 150 kg, CrCl > 30 mL/min) AND/OR *Sequential Compression Device (SCD) 5 or more Highest Order ONE of the following medications: *Heparin 5000 units SQ TID (Preferred with Epidurals) *Enoxaparin/Lovenox 40 mg SQ daily (WT < 150 kg, CrCl > 30 mL/min) *Enoxaparin/Lovenox 30 mg SQ daily (WT < 150 kg, CrCl > 10-29 mL/min) *Enoxaparin/Lovenox 30 mg SQ BID (WT < 150 kg, CrCl > 30 mL/min) AND *Sequential Compression Device (SCD) Assessment and Plan - Problem List (1) Septic shock Code(s): A41.9 - Sepsis, unspecified organism; R65.21 - Severe sepsis with septic shock Status: Acute (2) Syncope Code(s): R55 - Syncope and collapse Status: Acute (3) Acute pyelonephritis Code(s): N10 - Acute pyelonephritis Status: Acute (4) Acute kidney injury (nontraumatic) Code(s): N17.9 - Acute kidney failure, unspecified Status: Acute (5) Hydronephrosis of left kidney Code(s): N13.30 - Unspecified hydronephrosis Status: Acute (6) Lactic acidemia Code(s): E87.2 - Acidosis Status: Acute (7) Ureteral calculus, left Code(s): N20.1 - Calculus of ureter Status: Acute - Assessment and Plan Plan: NEURO: -Tylenol PRN for pain and fever -Use morphine if needed for additional pain control RESP: -DuoNeb every 2 hours as needed -SBT when appropriate CV: Septic shock Lactic acidosis -Normal saline IV fluids 5 L bolus followed by 84 mL/h -Start Levophed to keep map above 65 -Continue fluid resuscitation -Trend lactic acid GI: -N.p.o., IV famotidine : Left hydronephrosis from obstructing stone Acute kidney injury -Monitor renal function closely. Maintain Peres catheter. -Continue aggressive fluid resuscitation -Urology Dr. Guerrero consulted and discussed with him -OR today for emergency urethral stent placement ID: Septic shock Acute pyelonephritis -Antibiotics with Rocephin 2 g IV every 24 hours -Single dose of vancomycin -Blood urine cultures. Previous urine cultures 01/11, Klebsiella, 01/31 GNR HEME: -Monitor CBC, coags ENDO: -Electrolyte replacement per protocol PROPH: -Bilateral lower extremity SCDs. IV famotidine. Hold chemical DVT prophylaxis in anticipation of urological procedures LINES: -Left IJ central line placed in the ICU 02/01/2018 CC time 45 min Code Status: Full Discussed Condition With: Full H&P: Quality - VTE Deep Vein Thrombosis/Pulmonary Embolism Present on Admission: No
--- NOTE | 2018-02-01 14:36 | XR ---
EXAM DATE: 02/01/2018 2:30 PM EDT AGE/SEX: 22 years / Female INDICATIONS: Evaluate central line placement CLINICAL DATA: This is the patient's subsequent encounter. Patient reports that signs and symptoms h ave been present for 1 day and indicates a pain score of 0/10. MEDICAL/SURGICAL HISTORY: None. None. [place] [facility] [place]. . FINDINGS: A single AP view of the chest demonstrates mild diffuse interstitial prominence. Left IJ central line in good position. No focal infiltrate. The cardiomediastinal contours are unremarkable. Osseous st ructures are intact. CONCLUSION: Left IJ central line in excellent position. Mild interstitial prominence likely related to expiratory film Electronically signed by: Duane Rangel MD 02/01/2018 2:35 PM EDT
[2018-02-01] MEDS ORDERED: Vancomycin Inj 1 GM/200 ML PIGGYBACK IV.SIG ONE (14:52)
[2018-02-01] MEDS ORDERED: Vancomycin Inj 1,000 MG in Sodium Chlor 0.9% Inj 250 ML IV.SIG ONE (15:00)
--- NOTE | 2018-02-01 16:21 | P.OP ---
- Preoperative Diagnosis (1) Ureteral calculus, left - Postoperative Diagnosis (1) Ureteral calculus, left Date of procedure: 02/01/18 Procedure: Cystoscopy, left retrograde pyelogram, left ureteroscopy and left ureteral stent placement Implants: Left ureteral stent Anesthesia: MAC Surgeon: Brooks Tan MD Estimated blood loss (mL): 0 Pathology: none sent Operation and Findings: Indication for procedures: Case of a pleasant 22-year-old female with an obstructing 4 mm left proximal ureteral calculus and pyelonephritis who presents now for urgent stent placement. Operative procedure in detail: Patient was brought to the operating room suite placed supine on the OR table. She was then placed under general anesthesia. She was then repositioned in the dorsolithotomy position and prepped and draped in normal sterile fashion. After an appropriate timeout was undertaken I proceeded with cystoscopic evaluation utilizing the rigid cystoscope with the 20 Prydeinig sheath and the 30 degree lens. Both right and left ureteral orifices were in correct anatomic position. There was clear drainage from the right and no drainage on the left. I then proceeded to pass a sensor 0.035 wire up the patient's left ureter up into the left renal pelvis. A 6 Prydeinig open-ended ureteral catheter was then advanced over the wire and the wire withdrawn. A left retrograde pyelogram study was performed to outline the collecting system. The guidewire was reintroduced and the open-ended catheter was exchanged for a Maddock 6 Prydeinig 24 cm stent. The stent was then placed in the both cystoscopic and fluoroscopic guidance without difficulty. Once the stent was in proper position the trailing string was removed. At this point time the patient had an episode of coughing and the distal loop of the stent migrated up the left ureter. I then proceeded to use the self dilating ureteroscope and performed distal left ureteroscopy was able to grab the distal end of the stent with a basket and pulled down back into the bladder. Repeat fluoroscopy demonstrated the upper loop of the stent not to be in a very good position and thus I decided to replace the entire stent. The sensor wire was utilized and advanced through the stent and the stent removed a 6 Prydeinig 22 cm stent was then placed again on the both cystoscopic and fluoroscopic guidance without difficulty. This time I had a nice coil within the left renal pelvis and the distal end looped well in the bladder. The trailing string was then removed. A 16 Prydeinig 10 cc Peres catheter was then placed and connected to gravity drainage. The patient tolerated the procedures without complications and was transferred to the PACU in satisfactory condition.
[2018-02-01] MEDS ORDERED: fentaNYL Citrate Inj 1,000 MCG/20 ML Vial ONE (16:41)
[2018-02-01] MEDS ORDERED: Norepinephrine Inj 4 MG in Sodium Chlor 0.9% Inj 246 ML IV.SIG PRN (16:53)
[2018-02-01] MEDS ORDERED: cefTRIAXone Inj 1,000 MG Vial ONE (17:13)
[2018-02-01] MEDS: Famotidine PF Inj 20 MG/2 ML Vial IV.PUSH SCH (21:16)
[2018-02-01] MEDS: Senna/Docusate Sodium 8.6/50 MG Tablet PO SCH (21:16)
[2018-02-02] MEDS: Chlorhexidine Gluconate 2% 1 Pack (2 Cloths) TOPICAL SCH (04:00)
[2018-02-02] MEDS ORDERED: Chlorhexidine Gluconate 2% 1 Pack (2 Cloths) TOPICAL PRN (04:00)
[2018-02-02] MEDS: Sod Chloride 0.9% Inj 1,000 ML IV.CONT SCH (04:30)
[2018-02-02 07:06] LABS: Baso % (Auto) 0.1 % (0.0-2.0); Eos # (Auto) 0.1 th/mm3 (0.0-0.4); Eos % (Auto) 0.3 % (0.0-4.0); Hematocrit 33.2 % (35.0-46.0); Hemoglobin 10.9 gm/dL (11.6-15.3); Lymph # (Auto) 0.5 th/mm3 (1.0-4.8); Lymph % (Auto) 1.6 % (9.0-44.0); Mean Corpuscular HGB Conc 32.7 % (32.0-36.0); Mean Corpuscular Hemoglobin 28.4 pg (27.0-34.0); Mean Corpuscular Volume 86.9 fL (80.0-100.0); Mean Platelet Volume 9.6 fL (7.0-11.0); Mono # (Auto) 1.3 th/mm3 (0.0-0.9); Mono % (Auto) 4.3 % (0.0-8.0); Neut # (Auto) 27.6 th/mm3 (1.8-7.7); Neut % (Auto) 93.7 % (16.0-70.0); Platelet Count 134 th/mm3 (150-450); Red Blood Count 3.82 mil/mm3 (4.00-5.30); Red Cell Distribution Width 14.1 % (11.6-17.2); White Blood Count 29.5 th/mm3 (4.0-11.0)
--- NOTE | 2018-02-02 07:42 | P.PNCC ---
Subjective Subjective Remarks/Hospital Course: The patient is a 22-year-old -Russian female who had a vaginal delivery on 01/12/2018. She presented to the emergency department at [facility] yesterday with fever and UTI symptoms, was diagnosed with UTI and placed on amoxicillin. She again presented to the [facility] today with syncopal episode x2. Apparently she was lightheaded and dizzy prior to syncope. In the ED she had fever, tachycardia and temperature of 102.1 F. Patient was hypotensive with a lactic acid of 6.2. Patient received 3 L fluid boluses and 1 g of Rocephin IV. A CT scan study was performed that demonstrated a 4 mm left proximal ureteral calculus with left hydronephrosis. Urology consult placed with Dr. Tan. Critical care medicine was requested to admit the patient I evaluated the patient in the ED. She appeared very critical lethargic but wakes up easily. After 3 L of saline patient's blood pressure was in the mid 70s. Patient was immediately moved to the ICU and additional 2 L fluid boluses were ordered. After patient arrived in the ICU she remained hypotensive despite a total of 5 L bolus. I have added Levophed and also placed a left IJ central line. Her urine culture on 01/11/2018 is growing Klebsiella pansensitive. Urine culture from yesterday has GNR. I have discussed with Dr. Guerrero patient will get emergency left ureteral stent placement in the OR. I have increased Rocephin to 2 g daily, and also give 1 dose of vancomycin. Acute kidney injury is secondary to severe sepsis septic shock and ATN Patient is lying in bed in NAD. s/p Cystoscopy, left retrograde pyelogram, left ureteroscopy and left ureteral stent placement yesterday. T:100.5 Objective Vital Signs / I&O: Vital Signs 02/01/18 08:43 02/01/18 08:59 02/01/18 11:18 Temperature 102.1 F H Pulse Rate 117 H 120 H Respiratory Rate 17 30 H Blood Pressure 119/57 L 91/53 L Pulse Oximetry 100 99 02/01/18 11:57 02/01/18 12:49 02/01/18 13:57 Temperature Pulse Rate 130 H Respiratory Rate 24 24 28 H Blood Pressure Pulse Oximetry 99 02/01/18 14:00 02/01/18 14:24 02/01/18 14:26 Temperature Pulse Rate 132 H 126 H 127 H Respiratory Rate 34 H 31 H 33 H Blood Pressure 99/50 L 96/51 L Pulse Oximetry 99 99 100 02/01/18 14:30 02/01/18 14:34 02/01/18 16:15 Temperature Pulse Rate 108 H Respiratory Rate Blood Pressure 99/54 L 94/50 L Pulse Oximetry 78 L 02/01/18 16:22 02/01/18 16:30 02/01/18 16:35 Temperature 99.2 F Pulse Rate 111 H 108 H Respiratory Rate 15 16 Blood Pressure 87/47 L 91/55 L Pulse Oximetry 92 L 96 95 02/01/18 16:40 02/01/18 16:45 02/01/18 16:51 Temperature Pulse Rate 109 H 108 H 111 H Respiratory Rate 24 16 27 H Blood Pressure 99/55 L 101/56 L 101/56 L Pulse Oximetry 97 93 L 97 02/01/18 17:00 02/01/18 17:10 02/01/18 17:15 Temperature 99.1 F Pulse Rate 108 H 106 H 104 H Respiratory Rate 16 20 18 Blood Pressure 102/61 111/61 112/68 Pulse Oximetry 99 99 99 02/01/18 17:20 02/01/18 17:30 02/01/18 17:51 Temperature Pulse Rate 104 H 103 H 109 H Respiratory Rate 24 24 25 H Blood Pressure 112/68 106/67 113/68 Pulse Oximetry 99 100 98 02/01/18 18:00 02/01/18 19:00 02/01/18 20:00 Temperature 99.5 F Pulse Rate 104 H 102 H 102 H Respiratory Rate 24 22 24 Blood Pressure 98/67 L 104/74 109/71 Pulse Oximetry 99 100 100 02/01/18 21:00 02/01/18 22:00 02/01/18 23:00 Temperature Pulse Rate 102 H 96 H 93 H Respiratory Rate 15 20 18 Blood Pressure 106/75 110/74 113/73 Pulse Oximetry 100 100 100 02/02/18 00:00 02/02/18 01:00 02/02/18 02:00 Temperature 100.2 F H Pulse Rate 83 82 74 Respiratory Rate 23 21 24 Blood Pressure 98/74 L 103/75 113/62 Pulse Oximetry 100 100 100 02/02/18 03:00 02/02/18 04:00 02/02/18 05:00 Temperature 100.5 F H Pulse Rate 66 85 69 Respiratory Rate 24 16 25 H Blood Pressure 109/74 108/72 119/73 Pulse Oximetry 100 100 100 02/02/18 06:00 Temperature Pulse Rate 65 Respiratory Rate 24 Blood Pressure 97/62 L Pulse Oximetry 100 Intake & Output 02/01/18 02/02/18 02/02/18 18:59 06:59 18:59 Intake Total 6050 / 6050 1000 / 1000 Output Total 2950 / 2950 3575 / 3575 Balance 3100 / 3100 -2575 / -2575 Weight 75.5 kg 81.5 kg Intake: IV 4550 / 4550 1000 / 1000 NS Inj 1,000 ML @ 84 mls/hr IV. 1000 / 1000 CONT .[id number] [facility] Rx#:[id number] Magnesium Sulfate 1 gm/D5W 100 100 / 100 ml Premix 100 ML @ 100 mls/hr IV.SIG ONCE ONE Rx#:[id number] NS Inj 1,000 ML @ 999 mls/hr IV 4000 / 4000 .SIG .Q1H1M ONE Rx#:[id number] Vancomycin Inj 1,000 MG In NS 250 / 250 Inj 250 ML @ 250 mls/hr IV.SIG ONCE ONE Rx#:[id number] Rocephin Inj 1,000 MG In NS Inj 200 / 200 100 ML @ 200 mls/hr IV.SIG ONCE ONE Rx#:[id number] Oral 0 / 0 Anesthesia Amount 1500 / 1500 Output: Urine Amount (Catheter) 2950 / 2950 3575 / 3575 Indwelling Urethral Catheter 2950 / 2950 3575 / 3575 Other: Date of Last Bowel Movement 01/30/18 # Bowel Movements 0 Weight On Admission 75.5 kg Result Diagrams: 02/02/18 11:39 02/02/18 05:50 Other Results: Laboratory Results - last 12 hr 02/01/18 02/02/18 20:18 05:50 WBC 29.5 H D RBC 3.82 L Hgb 10.9 L Hct 33.2 L MCV 86.9 MCH 28.4 MCHC 32.7 RDW 14.1 Plt Count 134 L D MPV 9.6 Prelim Diff (Auto) Slide review pending Neut % (Auto) 93.7 H Lymph % (Auto) 1.6 L [place] % (Auto) 4.3 Eos % (Auto) 0.3 Baso % (Auto) 0.1 Neut # (Auto) 27.6 H Lymph # (Auto) 0.5 L [place] # (Auto) 1.3 H Eos # (Auto) 0.1 Baso # (Auto) 0.0 Differential Comment . Lactic Acid 3.8 H Imaging: Abdomen/Pelvis CT 02/01/18 09:41 CONCLUSION: There is a 4 x 3 mm stone in the left proximal ureter near the ureteropelvic junction causing mild left hydronephrosis. The obstructing stone also causes delayed enhancement and enlargement of the left kidney with left perinephric inflammation and trace fluid. Head CT 02/01/18 12:02 CONCLUSION: Negative noncontrast head CT. . Chest X-Ray 02/01/18 13:36 CONCLUSION: Left IJ central line in excellent position. Mild interstitial prominence likely related to expiratory film Objective Remarks: GENERAL: Patient is 22 yo lying in bed in NAD. SKIN: Warm and dry. HEAD: Normocephalic. EYES: No scleral icterus. No injection or drainage. NECK: Supple, trachea midline. No JVD or lymphadenopathy. CARDIOVASCULAR: Regular rate and rhythm without murmurs, gallops, or rubs. RESPIRATORY: Breath sounds equal bilaterally. No accessory muscle use. GASTROINTESTINAL: Abdomen soft, non-tender, nondistended. MUSCULOSKELETAL: No cyanosis, or edema. Neuro: Awake and alert Assessment and Plan - Problem List (1) Septic shock Code(s): A41.9 - Sepsis, unspecified organism; R65.21 - Severe sepsis with septic shock Status: Acute (2) Syncope Code(s): R55 - Syncope and collapse Status: Acute (3) Acute pyelonephritis Code(s): N10 - Acute pyelonephritis Status: Acute (4) Acute kidney injury (nontraumatic) Code(s): N17.9 - Acute kidney failure, unspecified Status: Acute (5) Hydronephrosis of left kidney Code(s): N13.30 - Unspecified hydronephrosis Status: Acute (6) Lactic acidemia Code(s): E87.2 - Acidosis Status: Acute (7) Ureteral calculus, left Code(s): N20.1 - Calculus of ureter Status: Acute - Assessment and Plan Plan: NEURO: -Tylenol PRN for pain and fever -Use morphine if needed for additional pain control RESP: -Continue with oxygen keep sats >92% -DuoNeb every 2 hours as needed CV: Septic shock- resolved Lactic acidosis- resolving -s/p NS IV fluids 5 L bolus, now on NS 84 mL/h -Off Levophed Monitor HR and BP keep MAP>65mmHG -Trend lactic acid ( trending down) GI: -N.p.o., IV famotidine : Left hydronephrosis from obstructing stone Acute kidney injury -Monitor renal function, I/O's, avoid nephrotoxins -Change IVF 1/2NS@75ml/hr -Urology Dr. Guerrero is following.s/p Cystoscopy, left retrograde pyelogram, left ureteroscopy and left ureteral stent placement 02/01 ID: Septic shock Acute pyelonephritis Gram negative bacteremia -Change abx to Zosyn, check BC x 2 sets today -Single dose of vancomycin 02/01 -Blood urine: GNR, Kelb pneumonia 07/09 bottles -Previous urine cultures 01/11, Klebsiella, 01/31 GNR - ID eval HEME: -Monitor CBC, coags ENDO: -Electrolyte replacement per protocol PROPH: -Bilateral lower extremity SCDs. IV famotidine. Hold chemical DVT prophylaxis for now LINES: -Left IJ central line placed in the ICU 02/01/2018 Level 3
[2018-02-02 07:44] LABS: Albumin 2.1 g/dL (3.4-5.0); Calcium 7.4 mg/dL (8.5-10.1); Carbon Dioxide 23.4 meq/L (21.0-32.0); Phosphorus 2.9 mg/dL (2.5-4.9); Potassium 3.9 meq/L (3.5-5.1); Total Protein 5.8 g/dL (6.4-8.2)
[2018-02-02 08:07] LABS: Dohle Bodies Present; Lymphocytes 3 % (9-44); Metamyelocytes 13 % (0-1); Monocytes 3 % (0-8); Toxic Vacuolation Present
[2018-02-02 08:08] LABS: Platelet Morphology Normal (Normal)
[2018-02-02] MEDS: Famotidine PF Inj 20 MG/2 ML Vial IV.PUSH SCH ×2 (09:26→21:30)
[2018-02-02] MEDS: Senna/Docusate Sodium 8.6/50 MG Tablet PO SCH ×2 (09:27→21:30)
[2018-02-02 12:01] LABS: Baso # (Auto) 0.1 th/mm3 (0.0-0.2); Baso % (Auto) 0.2 % (0.0-2.0); Eos # (Auto) 0.1 th/mm3 (0.0-0.4); Eos % (Auto) 0.2 % (0.0-4.0); Hematocrit 35.4 % (35.0-46.0); Hemoglobin 11.5 gm/dL (11.6-15.3); Lymph # (Auto) 0.7 th/mm3 (1.0-4.8); Lymph % (Auto) 2.5 % (9.0-44.0); Mean Corpuscular HGB Conc 32.5 % (32.0-36.0); Mean Corpuscular Hemoglobin 28.3 pg (27.0-34.0); Mean Platelet Volume 9.4 fL (7.0-11.0); Mono # (Auto) 1.1 th/mm3 (0.0-0.9); Mono % (Auto) 3.9 % (0.0-8.0); Neut # (Auto) 26.5 th/mm3 (1.8-7.7); Neut % (Auto) 93.2 % (16.0-70.0); Platelet Count 148 th/mm3 (150-450); Red Blood Count 4.07 mil/mm3 (4.00-5.30); Red Cell Distribution Width 14.3 % (11.6-17.2); White Blood Count 28.4 th/mm3 (4.0-11.0)
[2018-02-02] MEDS ORDERED: Sodium Chlor 0.9% Inj 500 ML IV.SIG SCH (12:31)
[2018-02-02 12:34] LABS: Dohle Bodies Present; Lymphocytes 6 % (9-44); Metamyelocytes 6 % (0-1); Monocytes 1 % (0-8); Toxic Vacuolation Present
[2018-02-02 12:35] LABS: Platelet Morphology Normal (Normal)
[2018-02-02] MEDS: Piperacil/Tazo 4.5 GM Premix 4.5 GM/100 ML BAG IV.SIG SCH ×3 (13:42→23:45)
[2018-02-02] MEDS: Sodium Chloride 0.45 % Inj 1,000 ML IV.CONT SCH (13:42)
[2018-02-02] MEDS: Acetaminophen 325 MG Tablet PO PRN ×2 (14:41→22:12)
--- NOTE | 2018-02-02 19:25 | P.CONID ---
History of Present Illness Service: ID Consult date: 02/02/18 Requesting Physician: nAastacio Christensen Reason for Consult: gram negative sepsis Primary Care Provider: UNKNOWN Chief Complaint: Syncope, fever History of Present Illness: 22 yo female sp normal vaginal delivery on Jan 12 after uneventful developped severe L sided back apin , malaise and syncopal episode on Friday She presented with fever of 102 nl WBC, nl UA Severe lactic acidemia adn CONSTANCE with creatinine of 1.[address] showed a 4 x 3 mm stone in the left proximal ureter near the ureteropelvic junction causing mild left hydronephrosis. The obstructing stone also causes delayed enhancement and enlargement of the left kidney with left perinephric inflammation and trace fluid. She underwent emergent cystoscopy, left retrograde pyelogram, left ureteroscopy and left ureteral stent placement Her blood cultures are growing GNBs on 07/09'd as Kleb pneumo, resistance markers not detected on molecular studies Pt is on zosyn WBC went up to 29 K Lactic acid dropped down fever subsided BP stble not requiring pressors Feels better Review of Systems All other systems reviewed negative except as stated in HPI PMFSH - History History Provided By: Patient - Medical History Medical History: Medical History (Last Reviewed 02/02/18 @ 19:22 by Bri Barrera MD) Patient denies medical problems Vaginal delivery - Surgical History Surgical History: Surgical History (Last Reviewed 02/02/18 @ 19:22 by Bri Barrera MD) No history of previous surgery - Family History Family History: Family History (Last Updated 02/02/18 @ 19:22 by Bri Barrera MD) Other Family history non-contributory - Social History I have reviewed the patient's Social History: Yes - Tobacco History Second Hand Smoke Exposure: No Smoking Status: Never smoker - Alcohol History How Often Do You Have a Drink Containing Alcohol: Never - Substance Use History Substance History: No History of Abuse - Travel History History of Recent Travel: No Recent Travel in the [place] Within the Last 8 Weeks: No Recent Travel Out of the Country Within the Last 8 Weeks: No - Immunization History Tetanus Immunization: >5 Years Hx Influenza Vaccine This Season: No Medications and Allergies Active Medications: Active Medications Acetaminophen (Tylenol) 650 mg PO Q6H PRN PRN Reason: PAIN 1-10 AND/OR FEVER >101F Last Admin: 02/02/18 14:41 Dose: 650 mg Al Hydroxide/Mg Hydroxide (Milk Of Archana Lidarby) 30 ml PO Q12H PRN PRN Reason: Mild Constipation Albuterol (Duoneb Neb (Prn)) 1 ampul NEB Q2HR NEB PRN PRN Reason: WHEEZING Bisacodyl (Dulcolax Supp) 10 mg RECTAL DAILY PRN PRN Reason: SEVERE CONSITIPATION Chlorhexidine Gluconate (Chlorhexidine 2% Cloth) 3 pack TOPICAL DAILY@0400 [facility] Stop: 02/07/18 03:59 Last Admin: 02/02/18 04:00 Dose: 3 pack Chlorhexidine Gluconate (Chlorhexidine 2% Cloth) 3 pack TOPICAL DAILY@0400 PRN PRN Reason: Extra cloth needed Stop: 02/07/18 03:59 Famotidine (Pepcid Pf Inj) 20 mg IV.PUSH Q12HR [facility] Last Admin: 02/02/18 09:26 Dose: 20 mg Sodium Chloride (Ns Inj) 1,000 mls @ 0 mls/hr IV.SIG BOLUS [facility] Last Infusion: 02/01/18 11:59 Dose: Infused Sodium Chloride (Ns Inj) 1,000 mls @ 0 mls/hr IV.SIG BOLUS [facility] Magnesium Sulfate 4 gm/ Sodium (Chloride) 100 mls @ 50 mls/hr IV.SIG UNSCH PRN PRN Reason: For Magnesium 0.9 - 1.1 mg/dL Magnesium Sulfate 2 gm/ Sodium (Chloride) 100 mls @ 50 mls/hr IV.SIG UNSCH PRN PRN Reason: For Magnesium 1.2 - 1.6 mg/dL Potassium Chloride (Kcl 40 Meq Premix Inj) 40 meq in 100 mls @ 25 mls/hr IV.SIG Q2H PRN PRN Reason: For Potassium 2.8 - 3.2 mEq/L Potassium Chloride (Kcl 20 Meq Premix Inj) 20 meq in 100 mls @ 50 mls/hr IV.SIG Q2H PRN PRN Reason: For Potassium 3.3 - 3.5 mEq/L Potassium Chloride (Kcl 40 Meq Premix Inj) 40 meq in 100 mls @ 25 mls/hr IV.SIG UNSCH PRN PRN Reason: For Potassium 3.3 - 3.5 mEq/L Potassium Chloride (Kcl 20 Meq Premix Inj) 20 meq in 100 mls @ 50 mls/hr IV.SIG Q2H PRN PRN Reason: For Potassium 2.8 - 3.2 mEq/L Potassium Phosphate 30 mmol/ (Sodium Chloride) 260 mls @ 42 mls/hr IV.SIG UNSCH PRN PRN Reason: SEE LABEL COMMENTS Sodium Phosphate 30 mmol/ (Sodium Chloride) 260 mls @ 42 mls/hr IV.SIG UNSCH PRN PRN Reason: For Phosphorus < 2.5 mg/dL Norepinephrine Bitartrate 4 mg (/ Sodium Chloride) 250 mls @ 7.5 mls/hr IV.SIG TITRATE PRN; Protocol PRN Reason: Per Protocol Last Titration: 02/01/18 18:16 Dose: 0 mcg/min, 0 mls/hr Piperacillin/Tazobactam/Dextrose (Zosyn 4.5 Gm Premix) 4.5 gm in 100 mls @ 200 mls/hr IV.SIG Q6H [facility] Last Admin: 02/02/18 13:42 Dose: 200 mls/hr Sodium Chloride (Ns Inj) 500 mls @ 0 mls/hr IV.SIG BOLUS [facility] Sodium Chloride (1/2 Normal Saline Inj) 1,000 mls @ 75 mls/hr IV.CONT .[id number] [facility] Last Admin: 02/02/18 13:42 Dose: 75 mls/hr Lactulose (Lactulose Liq) 30 ml PO DAILY PRN PRN Reason: SEVERE CONSITIPATION Magnesium Oxide (Mag-Ox) 800 mg PO UNSCH PRN PRN Reason: For Magnesium 1.2 - 1.6 mg/dL Morphine Sulfate (Morphine Inj) 2 mg IV.PUSH Q2H PRN PRN Reason: PAIN SCALE 6 TO 10 Potassium Bicarb/Potassium Chloride (K-Lyte Cl Eff) 50 meq PO UNSCH PRN PRN Reason: For Potassium 3.3 - 3.5 mEq/L Potassium Phosphate (K-Phos Original) 2,000 mg PO Q4H PRN PRN Reason: Phosphorus Less Than 2.5 mg/dL Potassium Phosphate (K-Phos Original) 2,000 mg PO UNSCH PRN PRN Reason: SEE LABEL COMMENTS Senna/Docusate Sodium (Ambreen-Colace) 1 tab PO BID [facility] Last Admin: 02/02/18 09:27 Dose: 1 tab Sennosides (Senokot) 17.2 mg PO Q12H PRN PRN Reason: Moderate Constipation Sodium Chloride (Ns Flush) 2 ml IV.FLUSH BID [facility] Last Admin: 02/02/18 09:27 Dose: 2 ml Sodium Chloride (Ns Flush) 2 ml IV.FLUSH PRN PRN PRN Reason: FLUSH AFTER USING IV ACCESS Terbutaline Sulfate (Brethine Inj) 1 mg SQ UNSCH PRN PRN Reason: For Extravasation Allergies Allergy/AdvReac Type Severity Reaction Status Date / Time No Known Allergies Allergy Verified 01/31/18 19:01 Exam Vital signs: Vital Signs 02/01/18 20:00 02/01/18 21:00 02/01/18 22:00 Temperature 99.5 F Pulse Rate 102 H 102 H 96 H Respiratory Rate 24 15 20 Blood Pressure 109/71 106/75 110/74 Pulse Oximetry 100 100 100 02/01/18 23:00 02/02/18 00:00 02/02/18 01:00 Temperature 100.2 F H Pulse Rate 93 H 83 82 Respiratory Rate 18 23 21 Blood Pressure 113/73 98/74 L 103/75 Pulse Oximetry 100 100 100 02/02/18 02:00 02/02/18 03:00 02/02/18 04:00 Temperature 100.5 F H Pulse Rate 74 66 85 Respiratory Rate 24 24 16 Blood Pressure 113/62 109/74 108/72 Pulse Oximetry 100 100 100 02/02/18 05:00 02/02/18 06:00 02/02/18 08:00 Temperature 99.2 F Pulse Rate 69 65 66 Respiratory Rate 25 H 24 13 Blood Pressure 119/73 97/62 L 103/74 Pulse Oximetry 100 100 100 02/02/18 08:01 02/02/18 12:00 02/02/18 16:00 Temperature 100.1 F H 98.7 F Pulse Rate 102 H 113 H Respiratory Rate 28 H Blood Pressure 122/72 104/61 Pulse Oximetry 100 100 100 Intake & Output 02/02/18 02/02/18 02/03/18 06:59 18:59 06:59 Intake Total 1000 / 1000 Output Total 3575 / 3575 Balance -2575 / -2575 Weight 81.5 kg Intake: IV 1000 / 1000 NS Inj 1,000 ML @ 84 mls/hr IV. 1000 / 1000 CONT .[id number] [facility] Rx#:[id number] Oral 0 / 0 Output: Urine Amount (Catheter) 3574 Indwelling Urethral Catheter 3574 Other: Date of Last Bowel Movement 01/30/18 01/30/18 # Bowel Movements 0 - Constitutional no acute distress, average body habitus - Routine HEENT Exam Head: Present: normocephalic, atraumatic Eye: Present: EOMI, PERRL ENT: Present: mucous membranes moist, oropharynx clear - Routine Neck Exam Present: supple. Absent: JVD, lymphadenopathy - Routine Respiratory Exam Present: CTA bilaterally. Absent: accessory muscle use, decreased breath sounds , rhonchi - Routine Cardiovascular Exam Present: RRR, S1, S2. Absent: murmur, gallop, rubs - Routine Abdominal Exam Present: soft, normoactive bowel sounds, tenderness. Absent: guarding, organomegaly, mass - Routine Exam Comments: soria in place with fairly clear urine - Routine Extremities Exam Absent: cyanosis, clubbing, edema - Routine Skin Exam Present: intact, warm. Absent: rash - Routine Neurological Exam Present: alert, oriented X3, CN II-XII intact. Absent: sensory deficit, motor deficit - Routine Psychiatric Exam Present: normal affect, cooperative Results - Labs CBC & Chem 7: 02/02/18 11:39 02/02/18 05:50 Labs: Laboratory Results - last 24 hr 02/01/18 02/02/18 02/02/18 20:18 05:50 05:50 WBC 29.5 H D RBC 3.82 L Hgb 10.9 L Hct 33.2 L MCV 86.9 MCH 28.4 MCHC 32.7 RDW 14.1 Plt Count 134 L D MPV 9.6 Prelim Diff (Auto) Slide review pending Neut % (Auto) 93.7 H Lymph % (Auto) 1.6 L [place]min[place] % (Auto) 4.3 Eos % (Auto) 0.3 Baso % (Auto) 0.1 Neut # (Auto) 27.6 H Lymph # (Auto) 0.5 L [place] # (Auto) 1.3 H Eos # (Auto) 0.1 Baso # (Auto) 0.0 WBC Differential Manual diff final Seg Neuts % (Manual) 51 Band Neuts % (Manual) 29 H Lymphocytes % (Manual) 3 L Monocytes % (Manual) 3 Basophils % (Manual) 1 Metamyelocytes % (Man) 13 H Abs Neuts (Manual) 27.4 H Differential Comment . Toxic Vacuolation Present H Dohle Bodies Present H Platelet Estimate Low L Platelet Morphology Normal Sodium 147 H Potassium 3.9 Chloride 114 H D Carbon Dioxide 23.4 Anion Gap 10 BUN 13 Creatinine 1.05 H Estimated GFR 79 L Random Glucose 84 Lactic Acid 3.8 H Calcium 7.4 L* Prot Corrected Calcium 8.1 L Phosphorus 2.9 Total Bilirubin 0.3 AST 44 H ALT 27 Alkaline Phosphatase 70 Total Protein 5.8 L D Albumin 2.1 L 02/02/18 02/02/18 11:39 11:39 WBC 28.4 H RBC 4.07 Hgb 11.5 L Hct 35.4 MCV 87.0 MCH 28.3 MCHC 32.5 RDW 14.3 Plt Count 148 L MPV 9.4 Prelim Diff (Auto) Slide review pending Neut % (Auto) 93.2 H Lymph % (Auto) 2.5 L [place] % (Auto) 3.9 Eos % (Auto) 0.2 Baso % (Auto) 0.2 Neut # (Auto) 26.5 H Lymph # (Auto) 0.7 L [place]min[place] # (Auto) 1.1 H Eos # (Auto) 0.1 Baso # (Auto) 0.1 WBC Differential Manual diff final Seg Neuts % (Manual) 59 Band Neuts % (Manual) 28 H Lymphocytes % (Manual) 6 L Monocytes % (Manual) 1 Basophils % (Manual) Metamyelocytes % (Man) 6 H Abs Neuts (Manual) 26.4 H Differential Comment . Toxic Vacuolation Present H Dohle Bodies Present H Platelet Estimate Low L Platelet Morphology Normal Sodium Potassium Chloride Carbon Dioxide Anion Gap BUN Creatinine Estimated GFR Random Glucose Lactic Acid 4.3 H* Calcium Prot Corrected Calcium Phosphorus Total Bilirubin AST ALT Alkaline Phosphatase Total Protein Albumin - Imaging Chest X-Ray 02/01/18 08:59 CONCLUSION: No acute cardiopulmonary abnormality is identified. Abdomen/Pelvis CT 02/01/18 09:41 CONCLUSION: There is a 4 x 3 mm stone in the left proximal ureter near the ureteropelvic junction causing mild left hydronephrosis. The obstructing stone also causes delayed enhancement and enlargement of the left kidney with left perinephric inflammation and trace fluid. Head CT 02/01/18 12:02 CONCLUSION: Negative noncontrast head CT. . Chest X-Ray 02/01/18 13:36 CONCLUSION: Left IJ central line in excellent position. Mild interstitial prominence likely related to expiratory film Assessment and Plan - Plan Nephrolithiasis, with acute obstructive uropathy - stone in the left proximal ureter near the ureteropelvic junction causing mild left hydronephrosis. - sp stent placement L pyelonephritis Sepssi 2/2 L pyelonephritis, Kleb pneumo CONSTANCE, improving Lactic acidemia, improved Leukocytosis, leukemoid reactio 2/2 sepsis Overall improved Recent NVD (nl vag delivery); breastfeading (pumping for now) cont zosyn will adjust abx per clx
[2018-02-03] MEDS: Sodium Chloride 0.45 % Inj 1,000 ML IV.CONT SCH (02:34)
[2018-02-03] MEDS: Chlorhexidine Gluconate 2% 1 Pack (2 Cloths) TOPICAL SCH (04:00)
[2018-02-03] MEDS: Sod Chloride 0.9% Inj 1,000 ML IV.CONT SCH ×3 (04:55→22:13)
[2018-02-03 06:13] LABS: Baso % (Auto) 0.2 % (0.0-2.0); Eos # (Auto) 0.2 th/mm3 (0.0-0.4); Eos % (Auto) 0.8 % (0.0-4.0); Hematocrit 30.2 % (35.0-46.0); Hemoglobin 10.1 gm/dL (11.6-15.3); Lymph # (Auto) 0.9 th/mm3 (1.0-4.8); Lymph % (Auto) 4.7 % (9.0-44.0); Mean Corpuscular HGB Conc 33.3 % (32.0-36.0); Mean Corpuscular Hemoglobin 28.2 pg (27.0-34.0); Mean Corpuscular Volume 84.7 fL (80.0-100.0); Mean Platelet Volume 9.9 fL (7.0-11.0); Mono # (Auto) 0.8 th/mm3 (0.0-0.9); Mono % (Auto) 4.1 % (0.0-8.0); Neut # (Auto) 18.3 th/mm3 (1.8-7.7); Neut % (Auto) 90.2 % (16.0-70.0); Platelet Count 117 th/mm3 (150-450); Red Blood Count 3.57 mil/mm3 (4.00-5.30); Red Cell Distribution Width 14.3 % (11.6-17.2); White Blood Count 20.2 th/mm3 (4.0-11.0)
[2018-02-03] MEDS: Piperacil/Tazo 4.5 GM Premix 4.5 GM/100 ML BAG IV.SIG SCH ×4 (06:32→23:54)
[2018-02-03 06:56] LABS: Alanine Aminotransferase 20 U/L (10-53); Albumin 1.9 g/dL (3.4-5.0); Alkaline Phosphatase 100 U/L (45-117); Anion Gap 8 meq/L (5-15); Aspartate Aminotransferase 26 U/L (15-37); Blood Urea Nitrogen 8 mg/dL (7-18); Calcium 7.4 mg/dL (8.5-10.1); Carbon Dioxide 24.7 meq/L (21.0-32.0); Chloride 107 meq/L (98-107); Glomerular Filtration Rate Greater Than 89 mL/min (>89); Glucose,Random 87 mg/dL (74-106); Magnesium 1.6 mg/dL (1.5-2.5); Phosphorus 1.7 mg/dL (2.5-4.9); Potassium 3.1 meq/L (3.5-5.1); Sodium 140 meq/L (136-145); Total Protein 5.8 g/dL (6.4-8.2)
--- NOTE | 2018-02-03 07:34 | P.PNCC ---
Subjective Subjective Remarks/Hospital Course: The patient is a 22-year-old -[place] female who had a vaginal delivery on 01/12/2018. She presented to the emergency department at [place] yesterday with fever and UTI symptoms, was diagnosed with UTI and placed on amoxicillin. She again presented to the [facility] today with syncopal episode x2. Apparently she was lightheaded and dizzy prior to syncope. In the ED she had fever, tachycardia and temperature of 102.1 F. Patient was hypotensive with a lactic acid of 6.2. Patient received 3 L fluid boluses and 1 g of Rocephin IV. A CT scan study was performed that demonstrated a 4 mm left proximal ureteral calculus with left hydronephrosis. Urology consult placed with Dr. Tan. Critical care medicine was requested to admit the patient I evaluated the patient in the ED. She appeared very critical lethargic but wakes up easily. After 3 L of saline patient's blood pressure was in the mid 70s. Patient was immediately moved to the ICU and additional 2 L fluid boluses were ordered. After patient arrived in the ICU she remained hypotensive despite a total of 5 L bolus. I have added Levophed and also placed a left IJ central line. Her urine culture on 01/11/2018 is growing Klebsiella pansensitive. Urine culture from yesterday has GNR. I have discussed with Dr. Guerrero patient will get emergency left ureteral stent placement in the OR. I have increased Rocephin to 2 g daily, and also give 1 dose of vancomycin. Acute kidney injury is secondary to severe sepsis septic shock and ATN 02/02 Patient is lying in bed in NAD. s/p Cystoscopy, left retrograde pyelogram , left ureteroscopy and left ureteral stent placement yesterday. T:100.5 02/03 Patient is lying in bed in NAD> T:99.9. Objective Vital Signs / I&O: Vital Signs 02/02/18 08:00 02/02/18 08:01 02/02/18 12:00 Temperature 99.2 F 100.1 F H Pulse Rate 66 102 H Respiratory Rate 13 28 H Blood Pressure 103/74 122/72 Pulse Oximetry 100 100 100 02/02/18 16:00 02/02/18 19:00 02/02/18 20:00 Temperature 98.7 F 99.5 F Pulse Rate 113 H 108 H 97 H Respiratory Rate 24 24 Blood Pressure 104/61 114/63 114/71 Pulse Oximetry 100 98 97 02/02/18 21:00 02/02/18 22:00 02/02/18 23:00 Temperature Pulse Rate 88 103 H 84 Respiratory Rate 28 H 25 H 26 H Blood Pressure 110/57 L 125/77 97/52 L Pulse Oximetry 97 96 94 L 02/03/18 00:00 02/03/18 01:00 02/03/18 02:00 Temperature 99.0 F Pulse Rate 89 83 78 Respiratory Rate 27 H 23 17 Blood Pressure 110/56 L 112/63 99/57 L Pulse Oximetry 95 96 98 02/03/18 03:00 02/03/18 04:00 02/03/18 05:00 Temperature 99.9 F H Pulse Rate 96 H 73 84 Respiratory Rate 21 25 H 24 Blood Pressure 116/83 103/59 L 110/80 Pulse Oximetry 99 99 100 02/03/18 06:00 Temperature Pulse Rate 77 Respiratory Rate 21 Blood Pressure 101/60 Pulse Oximetry 100 Intake & Output 02/02/18 02/03/18 02/03/18 18:59 06:59 18:59 Intake Total 960 / 960 1440 / 1440 Output Total 1800 / 1800 1800 / 1800 Balance -840 / -840 -360 / -360 Weight 80.5 kg Intake: IV 0 / 0 1200 / 1200 1/2 Normal Saline Inj 1,000 ML 1000 / 1000 @ 75 mls/hr IV.CONT .[id number] [facility] Rx#:[id number] Zosyn 4.5 GM Premix 4.5 gm In 0 / 0 200 / 200 100 ml @ 200 mls/hr IV.SIG Q6H [facility] Rx#:[id number] Oral 960 / 960 240 / 240 Output: Urine Amount (Catheter) 1800 / 1800 1800 / 1800 Indwelling Urethral Catheter 1800 / 1800 1800 / 1800 Other: Date of Last Bowel Movement 01/30/18 01/30/18 # Bowel Movements 0 0 Result Diagrams: 02/03/18 04:05 02/03/18 04:05 Other Results: Laboratory Results - last 12 hr 02/03/18 02/03/18 04:05 04:05 WBC 20.2 H RBC 3.57 L Hgb 10.1 L Hct 30.2 L MCV 84.7 MCH 28.2 MCHC 33.3 RDW 14.3 Plt Count 117 L MPV 9.9 Neut % (Auto) 90.2 H Lymph % (Auto) 4.7 L [place] % (Auto) 4.1 Eos % (Auto) 0.8 Baso % (Auto) 0.2 Neut # (Auto) 18.3 H Lymph # (Auto) 0.9 L [place] # (Auto) 0.8 Eos # (Auto) 0.2 Baso # (Auto) 0.0 WBC Differential . Differential Comment Auto diff final Sodium 140 Potassium 3.1 L D Chloride 107 Carbon Dioxide 24.7 Anion Gap 8 BUN 8 Creatinine 0.81 Estimated GFR Greater than 89 Random Glucose 87 Calcium 7.4 L* Prot Corrected Calcium 8.1 L Phosphorus 1.7 L D Magnesium 1.6 D Total Bilirubin 0.5 AST 26 ALT 20 Alkaline Phosphatase 100 Total Protein 5.8 L Albumin 1.9 L Imaging: Abdomen/Pelvis CT 02/01/18 09:41 CONCLUSION: There is a 4 x 3 mm stone in the left proximal ureter near the ureteropelvic junction causing mild left hydronephrosis. The obstructing stone also causes delayed enhancement and enlargement of the left kidney with left perinephric inflammation and trace fluid. Head CT 02/01/18 12:02 CONCLUSION: Negative noncontrast head CT. . Chest X-Ray 02/01/18 13:36 CONCLUSION: Left IJ central line in excellent position. Mild interstitial prominence likely related to expiratory film Objective Remarks: GENERAL: Patient is 22 yo lying in bed in NAD. SKIN: Warm and dry. HEAD: Normocephalic. EYES: No scleral icterus. No injection or drainage. NECK: Supple, trachea midline. No JVD or lymphadenopathy. CARDIOVASCULAR: Regular rate and rhythm without murmurs, gallops, or rubs. RESPIRATORY: Breath sounds equal bilaterally. No accessory muscle use. GASTROINTESTINAL: Abdomen soft, non-tender, nondistended. MUSCULOSKELETAL: No cyanosis, or edema. Neuro: Awake and alert Assessment and Plan - Problem List (1) Septic shock Code(s): A41.9 - Sepsis, unspecified organism; R65.21 - Severe sepsis with septic shock Status: Acute (2) Syncope Code(s): R55 - Syncope and collapse Status: Acute (3) Acute pyelonephritis Code(s): N10 - Acute pyelonephritis Status: Acute (4) Acute kidney injury (nontraumatic) Code(s): N17.9 - Acute kidney failure, unspecified Status: Acute (5) Hydronephrosis of left kidney Code(s): N13.30 - Unspecified hydronephrosis Status: Acute (6) Lactic acidemia Code(s): E87.2 - Acidosis Status: Acute (7) Ureteral calculus, left Code(s): N20.1 - Calculus of ureter Status: Acute - Assessment and Plan Plan: NEURO: -Tylenol PRN for pain and fever -Use morphine if needed for additional pain control RESP: -Continue with oxygen keep sats >92% -DuoNeb every 2 hours as needed CV: Septic shock- resolved Lactic acidosis- resolving -s/p NS IV fluids 5 L bolus, now on NS 75 mL/h -Monitor HR and BP keep MAP>65mmHG -Trend lactic acid till clear GI: IV famotidine, on PO diet : Left hydronephrosis from obstructing stone Acute kidney injury- resolved -Monitor renal function, I/O's, electrolytes replacement per protocol. Will need K, Phos replacement today -Change IVF NS@75ml/hr -Urology Dr. Guerrero is following.s/p Cystoscopy, left retrograde pyelogram, left ureteroscopy and left ureteral stent placement 02/01 ID: Septic shock Acute pyelonephritis Gram negative bacteremia -Continue Zosyn and monitor for signs of infections (fever, WBC) WBC is trending down -Single dose of vancomycin 02/01 -Blood urine: GNR, Kelb pneumonia 07/09 bottles 02/01. Follow up on BC form 02/02 -Previous urine cultures 01/11, Klebsiella, 01/31 Kleb pneumonia - ID is following- Dr. Barrera HEME: -Monitor CBC, coags ENDO: -Electrolyte replacement per protocol PROPH: -Bilateral lower extremity SCDs. IV famotidine. Hold chemical DVT prophylaxis for now LINES: -Left IJ central line placed 02/01/2018 -D/c Art line and Peres Level 3
[2018-02-03] MEDS: Famotidine PF Inj 20 MG/2 ML Vial IV.PUSH SCH ×2 (09:11→20:52)
[2018-02-03] MEDS: Senna/Docusate Sodium 8.6/50 MG Tablet PO SCH ×2 (09:11→20:53)
[2018-02-03] MEDS: Acetaminophen 325 MG Tablet PO PRN ×3 (09:12→23:55)
[2018-02-03] MEDS: Potassium Phosphate Inj 30 MMOL in Sodium Chlor 0.9% Inj 250 ML IV.SIG PRN (14:30)
[2018-02-03] MEDS: Potassium Chlor 20 mEq Premix 20 MEQ/100 ML PIGGYBACK IV.SIG PRN ×2 (20:53→23:06)
[2018-02-04] MEDS: Chlorhexidine Gluconate 2% 1 Pack (2 Cloths) TOPICAL SCH (04:00)
[2018-02-04 04:33] LABS: Baso % (Auto) 0.3 % (0.0-2.0); Eos # (Auto) 0.2 th/mm3 (0.0-0.4); Eos % (Auto) 0.8 % (0.0-4.0); Hematocrit 29.2 % (35.0-46.0); Hemoglobin 9.7 gm/dL (11.6-15.3); Lymph # (Auto) 1.3 th/mm3 (1.0-4.8); Lymph % (Auto) 6.5 % (9.0-44.0); Mean Corpuscular HGB Conc 33.1 % (32.0-36.0); Mean Corpuscular Hemoglobin 28.2 pg (27.0-34.0); Mean Corpuscular Volume 85.3 fL (80.0-100.0); Mean Platelet Volume 9.2 fL (7.0-11.0); Mono # (Auto) 1.3 th/mm3 (0.0-0.9); Mono % (Auto) 6.9 % (0.0-8.0); Neut # (Auto) 16.6 th/mm3 (1.8-7.7); Neut % (Auto) 85.5 % (16.0-70.0); Platelet Count 127 th/mm3 (150-450); Red Blood Count 3.42 mil/mm3 (4.00-5.30); Red Cell Distribution Width 14.5 % (11.6-17.2); White Blood Count 19.4 th/mm3 (4.0-11.0)
[2018-02-04 04:58] LABS: Alanine Aminotransferase 19 U/L (10-53); Anion Gap 6 meq/L (5-15); Aspartate Aminotransferase 16 U/L (15-37); Blood Urea Nitrogen 6 mg/dL (7-18); Calcium 7.8 mg/dL (8.5-10.1); Carbon Dioxide 26.7 meq/L (21.0-32.0); Chloride 108 meq/L (98-107); Glomerular Filtration Rate Greater Than 89 mL/min (>89); Glucose,Random 69 mg/dL (74-106); Magnesium 1.7 mg/dL (1.5-2.5); Potassium 3.5 meq/L (3.5-5.1); Sodium 141 meq/L (136-145)
[2018-02-04 05:00] LABS: Alkaline Phosphatase 110 U/L (45-117); Phosphorus 2.2 mg/dL (2.5-4.9)
[2018-02-04 05:17] LABS: Eosinophils 4 % (0-4); Lymphocytes 4 % (9-44); Monocytes 5 % (0-8)
[2018-02-04 05:18] LABS: Dohle Bodies Present; Platelet Morphology Normal (Normal); Toxic Vacuolation Present
[2018-02-04] MEDS: Potassium Phosphate Inj 30 MMOL in Sodium Chlor 0.9% Inj 250 ML IV.SIG PRN (06:27)
[2018-02-04] MEDS: Acetaminophen 325 MG Tablet PO PRN ×3 (06:27→22:12)
[2018-02-04] MEDS: Piperacil/Tazo 4.5 GM Premix 4.5 GM/100 ML BAG IV.SIG SCH ×3 (06:27→17:43)
[2018-02-04] MEDS: Famotidine PF Inj 20 MG/2 ML Vial IV.PUSH SCH (08:21)
[2018-02-04] MEDS: Senna/Docusate Sodium 8.6/50 MG Tablet PO SCH ×2 (08:21→20:46)
--- NOTE | 2018-02-04 12:40 | P.PNCC ---
Subjective Subjective Remarks/Hospital Course: The patient is a 22-year-old -[place] female who had a vaginal delivery on 01/12/2018. She presented to the emergency department at [place] yesterday with fever and UTI symptoms, was diagnosed with UTI and placed on amoxicillin. She again presented to the [facility] today with syncopal episode x2. Apparently she was lightheaded and dizzy prior to syncope. In the ED she had fever, tachycardia and temperature of 102.1 F. Patient was hypotensive with a lactic acid of 6.2. Patient received 3 L fluid boluses and 1 g of Rocephin IV. A CT scan study was performed that demonstrated a 4 mm left proximal ureteral calculus with left hydronephrosis. Urology consult placed with Dr. Tan. Critical care medicine was requested to admit the patient I evaluated the patient in the ED. She appeared very critical lethargic but wakes up easily. After 3 L of saline patient's blood pressure was in the mid 70s. Patient was immediately moved to the ICU and additional 2 L fluid boluses were ordered. After patient arrived in the ICU she remained hypotensive despite a total of 5 L bolus. I have added Levophed and also placed a left IJ central line. Her urine culture on 01/11/2018 is growing Klebsiella pansensitive. Urine culture from yesterday has GNR. I have discussed with Dr. Guerrero patient will get emergency left ureteral stent placement in the OR. I have increased Rocephin to 2 g daily, and also give 1 dose of vancomycin. Acute kidney injury is secondary to severe sepsis septic shock and ATN 02/02 Patient is lying in bed in NAD. s/p Cystoscopy, left retrograde pyelogram , left ureteroscopy and left ureteral stent placement yesterday. T:100.5 02/03 Patient is lying in bed in NAD> T:99.9. SUBJECTIVE: 02/04: Afebrile. Central has been removed. Appears comfortable. White blood cell count is stable. Remains on piperacillin/tazobactam. Objective Vital Signs / I&O: Vital Signs 02/03/18 13:00 02/03/18 14:00 02/03/18 15:00 Temperature Pulse Rate 96 H 83 82 Respiratory Rate 18 18 17 Blood Pressure 124/77 111/69 109/63 Pulse Oximetry 100 100 100 02/03/18 16:00 02/03/18 17:00 02/03/18 18:00 Temperature 98.4 F Pulse Rate 83 81 99 H Respiratory Rate 18 17 17 Blood Pressure 111/64 113/70 114/75 Pulse Oximetry 100 100 100 02/03/18 19:00 02/03/18 20:00 02/03/18 21:00 Temperature 99.3 F Pulse Rate 90 96 H 94 H Respiratory Rate 19 18 18 Blood Pressure 102/67 100/72 108/66 Pulse Oximetry 100 100 100 02/03/18 21:35 02/03/18 22:00 02/03/18 23:00 Temperature Pulse Rate 83 71 Respiratory Rate 26 H 18 Blood Pressure 101/62 110/65 Pulse Oximetry 100 100 100 02/04/18 00:00 02/04/18 01:00 02/04/18 02:00 Temperature 99.5 F Pulse Rate 84 85 67 Respiratory Rate 18 21 20 Blood Pressure 115/77 114/61 93/57 L Pulse Oximetry 100 98 99 02/04/18 03:00 02/04/18 04:00 02/04/18 05:00 Temperature 99.5 F Pulse Rate 71 64 110 H Respiratory Rate 22 22 24 Blood Pressure 111/59 L 111/61 108/62 Pulse Oximetry 100 100 100 02/04/18 06:00 02/04/18 07:00 02/04/18 08:00 Temperature 98.9 F Pulse Rate 96 H 66 88 Respiratory Rate 25 H 18 18 Blood Pressure 105/69 114/63 108/69 Pulse Oximetry 100 100 100 02/04/18 09:00 02/04/18 10:00 02/04/18 10:17 Temperature Pulse Rate 93 H 71 Respiratory Rate 19 18 Blood Pressure 117/79 124/85 Pulse Oximetry 97 100 100 02/04/18 11:00 Temperature Pulse Rate 91 H Respiratory Rate 18 Blood Pressure 133/96 H Pulse Oximetry 100 Intake & Output 02/03/18 02/04/18 02/04/18 18:59 06:59 18:59 Intake Total 1325 / 1325 2140 / 2140 Output Total 1050 / 1050 1200 / 1200 Balance 275 / 275 940 / 940 Weight 84.5 kg Intake: IV 675 / 675 1660 / 1660 NS Inj 1,000 ML @ 75 mls/hr IV. 1000 / 1000 CONT .[id number] [facility] Rx#:[id number] 1/2 Normal Saline Inj 1,000 ML 375 / 375 @ 75 mls/hr IV.CONT .[id number] [facility] Rx#:[id number] Zosyn 4.5 GM Premix 4.5 gm In 300 / 300 200 / 200 100 ml @ 200 mls/hr IV.SIG Q6H [facility] Rx#:[id number] KCl 20 mEq Premix Inj 20 meq In 200 / 200 100 ml @ 50 mls/hr IV.SIG Q2H [facility] Rx#:[id number] Potassium Phosphate Inj 30 MMOL 260 / 260 In NS Inj 250 ML @ 42 mls/hr IV.SIG UNSCH PRN Rx#:[id number] Oral 650 / 650 480 / 480 Output: Urine 1050 / 1050 1200 / 1200 Other: Date of Last Bowel Movement 01/30/18 02/04/18 02/04/18 # Bowel Movements 0 2 Result Diagrams: 02/04/18 04:15 02/04/18 04:15 Other Results: Microbiology 02/02/18 13:45 Blood - Peripheral Aerobic Blood Culture - Preliminary No growth in 2 days 02/02/18 13:45 Blood - Peripheral Anaerobic Blood Culture - Preliminary No growth in 2 days 02/02/18 13:53 Blood - Peripheral Aerobic Blood Culture - Preliminary No growth in 2 days 02/02/18 13:53 Blood - Peripheral Anaerobic Blood Culture - Preliminary No growth in 2 days 02/01/18 09:05 Blood - Peripheral Aerobic Blood Culture - Final Klebsiella pneumoniae 02/01/18 09:05 Blood - Peripheral Anaerobic Blood Culture - Final Klebsiella pneumoniae 02/01/18 09:10 Blood - Peripheral Aerobic Blood Culture - Final Klebsiella pneumoniae 02/01/18 09:10 Blood - Peripheral Anaerobic Blood Culture - Final Klebsiella pneumoniae Imaging: Chest X-Ray 02/01/18 08:59 CONCLUSION: No acute cardiopulmonary abnormality is identified. Abdomen/Pelvis CT 02/01/18 09:41 CONCLUSION: There is a 4 x 3 mm stone in the left proximal ureter near the ureteropelvic junction causing mild left hydronephrosis. The obstructing stone also causes delayed enhancement and enlargement of the left kidney with left perinephric inflammation and trace fluid. Head CT 02/01/18 12:02 CONCLUSION: Negative noncontrast head CT. . Chest X-Ray 02/01/18 13:36 CONCLUSION: Left IJ central line in excellent position. Mild interstitial prominence likely related to expiratory film Objective Remarks: GENERAL: Patient is 22 yo lying in bed in NAD. SKIN: Warm and dry. HEAD: Normocephalic. EYES: No scleral icterus. No injection or drainage. NECK: Supple, trachea midline. No JVD or lymphadenopathy. CARDIOVASCULAR: Regular rate and rhythm without murmurs, gallops, or rubs. RESPIRATORY: Breath sounds equal bilaterally. No accessory muscle use. GASTROINTESTINAL: Abdomen soft, non-tender, nondistended. MUSCULOSKELETAL: No significant peripheral edema. Neuro: Awake and alert Assessment and Plan - Assessment and Plan Plan: NEURO: -Tylenol PRN for pain and fever -Use morphine if needed for additional pain control RESP: -Continue with oxygen keep sats >92% -DuoNeb every 2 hours as needed CV: Septic shock- resolved Lactic acidosis- resolving -s/p NS IV fluids 5 L bolus, now on NS 75 mL/h -Monitor HR and BP keep MAP>65mmHG -Trend lactic acid till clear GI: po famotidine, on PO regular diet Renal/: Left hydronephrosis from obstructing stone Acute kidney injury- resolved -Monitor renal function, I/O's, electrolytes replacement per protocol. Will need K, Phos replacement today -Change IVF NS@75ml/hr -Urology Dr. Guerrero is following.s/p Cystoscopy, left retrograde pyelogram, left ureteroscopy and left ureteral stent placement 02/01 ID: Septic shock -resolved Acute pyelonephritis Gram negative bacteremia -Blood urine: GNR, Kelb pneumonia 07/09 bottles 02/01 -Continue piperacillin/tazobactam and monitor for signs of infections (fever, WBC) WBC is trending down -Single dose of vancomycin 02/01 . Follow up on BC form 02/02 -Previous urine cultures 01/11, Klebsiella, 01/31 Kleb pneumonia - ID is following- Dr. Barrera HEME: Leukocytosis Normocytic anemia -Monitor CBC, coags FEN/ENDO: -Electrolyte replacement per protocol PROPH: -Bilateral lower extremity SCDs. po famotidine. Hold chemical DVT prophylaxis for now. Low risk. Ambulate. LINES: -Left IJ central line placed 02/01/2018. Discontinued 02/03 -D/c Art line and Peres 02/02 Level 2 follow-up. Patient is stable from a critical care medicine standpoint. Assign care to hospitalist in a.m. 02/05. Transfer from ICU to general medical floor.
[2018-02-04] MEDS: Sod Chloride 0.9% Inj 1,000 ML IV.CONT SCH (13:19)
[2018-02-04] MEDS ORDERED: Potassium Phosphate Inj 30 MMOL in Sodium Chlor 0.9% Inj 250 ML IV.SIG ONE (15:00)
[2018-02-04] MEDS: Famotidine 20 MG Tablet PO SCH (20:45)
[2018-02-04 22:22] LABS: Potassium 3.2 meq/L (3.5-5.1)
[2018-02-04 22:27] LABS: Phosphorus 2.3 mg/dL (2.5-4.9)
[2018-02-05] MEDS: Piperacil/Tazo 4.5 GM Premix 4.5 GM/100 ML BAG IV.SIG SCH ×3 (00:31→11:16)
[2018-02-05] MEDS: Acetaminophen 325 MG Tablet PO PRN ×3 (05:32→21:41)
[2018-02-05] MEDS: Sod Chloride 0.9% Inj 1,000 ML IV.CONT SCH ×2 (05:34→12:33)
[2018-02-05] MEDS ORDERED: Potassium Phosphate 500 MG Soluble Tablet PO ONE (05:47)
[2018-02-05] MEDS: Chlorhexidine Gluconate 2% 1 Pack (2 Cloths) TOPICAL SCH (05:58)
[2018-02-05 07:08] LABS: Baso % (Auto) 0.3 % (0.0-2.0); Eos # (Auto) 0.3 th/mm3 (0.0-0.4); Eos % (Auto) 2.5 % (0.0-4.0); Hematocrit 27.5 % (35.0-46.0); Hemoglobin 9.2 gm/dL (11.6-15.3); Lymph # (Auto) 1.3 th/mm3 (1.0-4.8); Lymph % (Auto) 9.2 % (9.0-44.0); Mean Corpuscular HGB Conc 33.2 % (32.0-36.0); Mean Corpuscular Hemoglobin 28.2 pg (27.0-34.0); Mean Corpuscular Volume 84.8 fL (80.0-100.0); Mean Platelet Volume 9.4 fL (7.0-11.0); Mono # (Auto) 2.3 th/mm3 (0.0-0.9); Mono % (Auto) 16.9 % (0.0-8.0); Neut # (Auto) 9.8 th/mm3 (1.8-7.7); Neut % (Auto) 71.1 % (16.0-70.0); Platelet Count 127 th/mm3 (150-450); Red Blood Count 3.25 mil/mm3 (4.00-5.30); Red Cell Distribution Width 14.5 % (11.6-17.2); White Blood Count 13.8 th/mm3 (4.0-11.0)
[2018-02-05 07:48] LABS: Anion Gap 9 meq/L (5-15); Blood Urea Nitrogen 4 mg/dL (7-18); Calcium 7.8 mg/dL (8.5-10.1); Carbon Dioxide 26.6 meq/L (21.0-32.0); Chloride 104 meq/L (98-107); Glomerular Filtration Rate Greater Than 89 mL/min (>89); Glucose,Random 80 mg/dL (74-106); Magnesium 1.6 mg/dL (1.5-2.5); Phosphorus 3.2 mg/dL (2.5-4.9); Potassium 3.2 meq/L (3.5-5.1); Sodium 140 meq/L (136-145)
[2018-02-05] MEDS: Senna/Docusate Sodium 8.6/50 MG Tablet PO SCH ×2 (08:09→21:41)
[2018-02-05 09:01] LABS: Eosinophils 1 % (0-4); Lymphocytes 9 % (9-44); Metamyelocytes 1 % (0-1); Monocytes 15 % (0-8); Myelocytes 1 % (0-0); Platelet Morphology Normal (Normal)
[2018-02-05 09:02] LABS: RBC Morphology Normal (Normal)
--- NOTE | 2018-02-05 13:04 | P.PNID ---
Subjective Remarks: c/o L flank pain 10/14 c/o fever T max 102 in 24hr, just low grade temps now + hematuria Antibiotics: zosyn Allergies/Adverse Reactions: Allergies No Known Allergies Allergy (Verified 01/31/18 19:01) Objective Vital Signs 02/04/18 13:00 02/04/18 14:00 02/04/18 15:00 Temperature Pulse Rate 76 85 96 H Respiratory Rate 17 17 17 Blood Pressure 119/79 129/87 111/78 Pulse Oximetry 98 100 100 02/04/18 16:00 02/04/18 17:15 02/04/18 20:00 Temperature 98.9 F 100 F H 102.7 F H Pulse Rate 87 74 105 H Respiratory Rate 18 16 18 Blood Pressure 116/74 121/67 113/57 L Pulse Oximetry 100 74 L 99 02/05/18 00:00 02/05/18 05:36 02/05/18 06:51 Temperature 100.9 F H 101.8 F H 99.3 F Pulse Rate 98 H 86 Respiratory Rate 20 17 Blood Pressure 110/60 111/63 Pulse Oximetry 96 100 02/05/18 08:00 02/05/18 09:33 Temperature 99.4 F Pulse Rate 81 Respiratory Rate 20 16 Blood Pressure 108/59 L Pulse Oximetry 94 L Intake & Output 02/04/18 02/05/18 02/05/18 18:59 06:59 18:59 Intake Total 1360 / 1360 1172 / 1172 1100 / 1100 Balance 1360 / 1360 1172 / 1172 1100 / 1100 Weight 77 kg Intake: IV 1360 / 1360 1172 / 1172 1100 / 1100 NS Inj 1,000 ML @ 75 mls/hr IV. 1000 / 1000 872 / 872 1000 / 1000 CONT .[id number] [facility] Rx#:[id number] Levophed Inj 4 MG In NS Inj 246 0 / 0 ML @ 2 MCG/MIN 7.5 mls/hr IV. SIG TITRATE [facility]N Rx#:[id number] Zosyn 4.5 GM Premix 4.5 gm In 100 / 100 300 / 300 100 / 100 100 ml @ 200 mls/hr IV.SIG Q6H [facility] Rx#:[id number] Potassium Phosphate Inj 30 MMOL 260 / 260 In NS Inj 250 ML @ 42 mls/hr IV.SIG UNSCH [facility] Rx#:[id number] Other: Date of Last Bowel Movement 02/04/18 02/04/18 02/02/18 13:45 Blood - Peripheral Aerobic Blood Culture - Final Klebsiella pneumoniae 02/02/18 13:45 Blood - Peripheral Anaerobic Blood Culture - Preliminary No growth in 3 days 02/02/18 13:53 Blood - Peripheral Aerobic Blood Culture - Preliminary No growth in 3 days 02/02/18 13:53 Blood - Peripheral Anaerobic Blood Culture - Preliminary No growth in 3 days 02/05/18 06:28 Blood - Other Aerobic Blood Culture - Pending 02/05/18 06:28 Blood - Other Anaerobic Blood Culture - Pending 02/05/18 06:20 Blood - Other Aerobic Blood Culture - Pending 02/05/18 06:20 Blood - Other Anaerobic Blood Culture - Pending 02/01/18 09:05 Blood - Peripheral Aerobic Blood Culture - Final Klebsiella pneumoniae 02/01/18 09:05 Blood - Peripheral Anaerobic Blood Culture - Final Klebsiella pneumoniae 02/01/18 09:10 Blood - Peripheral Aerobic Blood Culture - Final Klebsiella pneumoniae 02/01/18 09:10 Blood - Peripheral Anaerobic Blood Culture - Final Klebsiella pneumoniae Lab - Hematology Results 02/04/18 02/05/18 04:15 06:28 WBC 19.4 H 13.8 H RBC 3.42 L 3.25 L Hgb 9.7 L 9.2 L Hct 29.2 L 27.5 L MCV 85.3 84.8 MCH 28.2 28.2 MCHC 33.1 33.2 RDW 14.5 14.5 Plt Count 127 L 127 L MPV 9.2 9.4 Prelim Diff (Auto) Slide review pending Slide review pending Neut % (Auto) 85.5 H 71.1 H Lymph % (Auto) 6.5 L 9.2 [place] % (Auto) 6.9 16.9 H Eos % (Auto) 0.8 2.5 Baso % (Auto) 0.3 0.3 Neut # (Auto) 16.6 H 9.8 H Lymph # (Auto) 1.3 1.3 [place] # (Auto) 1.3 H 2.3 H Eos # (Auto) 0.2 0.3 Baso # (Auto) 0.0 0.0 WBC Differential Manual diff final Manual diff final Seg Neuts % (Manual) 78 H 71 H Band Neuts % (Manual) 9 H 2 Lymphocytes % (Manual) 4 L 9 Monocytes % (Manual) 5 15 H Eosinophils % (Manual) 4 1 Metamyelocytes % (Man) 1 Myelocytes % (Man) 1 H Abs Neuts (Manual) 16.9 H 10.4 H Differential Comment . . Toxic Vacuolation Present H Dohle Bodies Present H Platelet Estimate Low L Low L Platelet Morphology Normal Normal RBC Morphology Normal Lab - Chemistry Results 02/03/18 02/04/18 02/04/18 18:15 04:15 04:15 Sodium 141 Potassium 3.4 L 3.5 Chloride 108 H Carbon Dioxide 26.7 Anion Gap 6 BUN 6 L Creatinine 0.75 Estimated GFR Greater than 89 Random Glucose 69 L Lactic Acid 0.8 Calcium 7.8 L Phosphorus 2.2 L Magnesium 1.7 Total Bilirubin 0.6 AST 16 ALT 19 Alkaline Phosphatase 110 Total Protein 6.0 L Albumin 2.0 L 02/04/18 02/05/18 20:26 06:28 Sodium 140 Potassium 3.2 L 3.2 L Chloride 104 Carbon Dioxide 26.6 Anion Gap 9 BUN 4 L Creatinine 0.74 Estimated GFR Greater than 89 Random Glucose 80 Lactic Acid Calcium 7.8 L Phosphorus 2.3 L 3.2 Magnesium 1.6 Total Bilirubin AST ALT Alkaline Phosphatase Total Protein Albumin Imaging: ITS Impressions Abdomen/Pelvis CT 02/01/18 09:41 CONCLUSION: There is a 4 x 3 mm stone in the left proximal ureter near the ureteropelvic junction causing mild left hydronephrosis. The obstructing stone also causes delayed enhancement and enlargement of the left kidney with left perinephric inflammation and trace fluid. Head CT 02/01/18 12:02 CONCLUSION: Negative noncontrast head CT. . Chest X-Ray 02/01/18 13:36 CONCLUSION: Left IJ central line in excellent position. Mild interstitial prominence likely related to expiratory film Physical Exam: GENERAL: NAD SKIN: Warm and dry. No rash EYES: No scleral icterus. No injection or drainage. ENT: No nasal bleeding or discharge. Mucous membranes pink and moist. CARDIOVASCULAR: Regular rate and rhythm. RESPIRATORY: No accessory muscle use. Clear to auscultation. Breath sounds equal bilaterally. GASTROINTESTINAL: Abdomen soft, non-tender, nondistended. : + prominent CVA tenderness on the L urine sligtly pink MUSCULOSKELETAL: Extremities without clubbing, cyanosis, or edema. No obvious deformities. NEUROLOGICAL: Awake and alert. No obvious cranial nerve deficits. Motor grossly within normal limits. Five out of 5 muscle strength in the arms and legs. Normal speech. PSYCHIATRIC: calm, cooperative Assessment and Plan - Plan Nephrolithiasis, with acute obstructive uropathy - stone in the left proximal ureter near the ureteropelvic junction causing mild left hydronephrosis. - sp stent placement L pyelonephritis, Kleb pneumo Sepssi 2/2 L pyelonephritis, Kleb pneumo CONSTANCE, resolved Lactic acidemia, resolved Leukocytosis, leukemoid reactio 2/2 sepsis: markedly improved Overall improved Recent NVD (nl vag delivery); breastfeading (pumping for now) change zosyn to CFTX US kidney monitor temps, WBC
--- NOTE | 2018-02-05 14:38 | US ---
EXAM DATE: 02/05/2018 2:31 PM EDT AGE/SEX: 22 years / Female INDICATIONS: Flank pain. CLINICAL DATA: This is the patient's initial encounter. Patient reports that signs and symptoms have been present for 4 - 6 days and indicates a pain score of 3/10. MEDICAL/SURGICAL HISTORY: . None. COMPARISON: [facility] [place]EL[place] W [place]AST, 02/01/2018. . MEASUREMENTS: Right Kidney:__12.4 x 5.3 x 4.8 cm Left Kidney:__12.7 x 6.2 x 5.9 cm FINDINGS: Right Kidney: Normal echotexture and cortical thickness. No mass or hydronephrosis. Left Kidney: No evidence for hydronephrosis. Normal echogenicity. Left-sided nephroureteral stent. Bladder: Within normal limits given the degree of distension. Other: None. CONCLUSION: 1. Left-sided nephroureteral stent. 2. No hydronephrosis. Electronically signed by: Sánchez Solano MD 02/05/2018 2:37 PM EDT
--- NOTE | 2018-02-05 15:49 | P.PN ---
Subjective Interval history: T max 101, still some terminal dysuria and left flank pain no nausea or vomiting Physical Exam Vital signs: Vital Signs 02/04/18 16:00 02/04/18 17:15 02/04/18 20:00 Temperature 98.9 F 100 F H 102.7 F H Pulse Rate 87 74 105 H Respiratory Rate 18 16 18 Blood Pressure 116/74 121/67 113/57 L Pulse Oximetry 100 74 L 99 02/05/18 00:00 02/05/18 05:36 02/05/18 06:51 Temperature 100.9 F H 101.8 F H 99.3 F Pulse Rate 98 H 86 Respiratory Rate 20 17 Blood Pressure 110/60 111/63 Pulse Oximetry 96 100 02/05/18 08:00 02/05/18 09:33 02/05/18 12:00 Temperature 99.4 F 101.1 F H Pulse Rate 81 79 Respiratory Rate 20 16 20 Blood Pressure 108/59 L 114/67 Pulse Oximetry 94 L 98 02/05/18 13:14 02/05/18 13:48 02/05/18 14:04 Temperature 99.2 F Pulse Rate Respiratory Rate 16 16 Blood Pressure Pulse Oximetry 02/05/18 15:47 Temperature 98.4 F Pulse Rate 74 Respiratory Rate 20 Blood Pressure 110/62 Pulse Oximetry 96 Intake & Output 02/04/18 02/05/18 02/05/18 18:59 06:59 18:59 Intake Total 1360 / 1360 1172 / 1172 1200 / 1200 Balance 1360 / 1360 1172 / 1172 1200 / 1200 Weight 77 kg Intake: IV 1360 / 1360 1172 / 1172 1200 / 1200 NS Inj 1,000 ML @ 75 mls/hr IV. 1000 / 1000 872 / 872 1000 / 1000 CONT .[id number] [facility] Rx#:[id number] Levophed Inj 4 MG In NS Inj 246 0 / 0 ML @ 2 MCG/MIN 7.5 mls/hr IV. SIG TITRATE PRN Rx#:[id number] Zosyn 4.5 GM Premix 4.5 gm In 100 / 100 300 / 300 100 / 100 100 ml @ 200 mls/hr IV.SIG Q6H [facility] Rx#:[id number] Potassium Phosphate Inj 30 MMOL 260 / 260 In NS Inj 250 ML @ 42 mls/hr IV.SIG UNSCH PRN Rx#:[id number] Rocephin Inj 2,000 MG In NS Inj 100 / 100 100 ML @ 200 mls/hr IV.SIG Q24H [facility] Rx#:[id number] Other: # Voids 2 Date of Last Bowel Movement 02/04/18 02/04/18 Narrative: GENERAL: Awake, alert, young -Dominican female no acute distress SKIN: dry and warm HEAD: Atraumatic. Normocephalic. EYES: Pupils equal and round. No scleral icterus. No injection or drainage. ENT: No nasal bleeding or discharge. Mucous membranes dry NECK: Trachea midline. No JVD. CARDIOVASCULAR: regular rhythm RESPIRATORY: No accessory muscle use. Clear to auscultation. Breath sounds equal bilaterally. GASTROINTESTINAL: Abdomen soft, non-tender, No suprapubic discomfort. Positive left CVA tenderness. MUSCULOSKELETAL: No obvious deformities. No clubbing. No cyanosis. No edema. NEUROLOGICAL: Awake and alert. No obvious cranial nerve deficits. Motor grossly within normal limits. Normal speech. - Urinary Catheter Management Indwelling Urethral Catheter Cath placed during this visit: yes Reason for continuing: Hourly intake/output Insertion date: 02/01/18 Insertion time: 16:00 Results - Labs CBC & Chem 7: 02/05/18 06:28 02/05/18 06:28 Laboratory Results - last 24 hr 02/04/18 02/05/18 02/05/18 20:26 06:28 06:28 WBC 13.8 H RBC 3.25 L Hgb 9.2 L Hct 27.5 L MCV 84.8 MCH 28.2 MCHC 33.2 RDW 14.5 Plt Count 127 L MPV 9.4 Prelim Diff (Auto) Slide review pending Neut % (Auto) 71.1 H Lymph % (Auto) 9.2 [place] % (Auto) 16.9 H Eos % (Auto) 2.5 Baso % (Auto) 0.3 Neut # (Auto) 9.8 H Lymph # (Auto) 1.3 [place] # (Auto) 2.3 H Eos # (Auto) 0.3 Baso # (Auto) 0.0 WBC Differential Manual diff final Seg Neuts % (Manual) 71 H Band Neuts % (Manual) 2 Lymphocytes % (Manual) 9 Monocytes % (Manual) 15 H Eosinophils % (Manual) 1 Metamyelocytes % (Man) 1 Myelocytes % (Man) 1 H Abs Neuts (Manual) 10.4 H Differential Comment . Platelet Estimate Low L Platelet Morphology Normal RBC Morphology Normal Sodium 140 Potassium 3.2 L 3.2 L Chloride 104 Carbon Dioxide 26.6 Anion Gap 9 BUN 4 L Creatinine 0.74 Estimated GFR Greater than 89 Random Glucose 80 Calcium 7.8 L Phosphorus 2.3 L 3.2 Magnesium 1.6 Microbiology 02/02/18 13:45 Blood - Peripheral Aerobic Blood Culture - Final Klebsiella pneumoniae 02/02/18 13:45 Blood - Peripheral Anaerobic Blood Culture - Preliminary No growth in 3 days 02/02/18 13:53 Blood - Peripheral Aerobic Blood Culture - Preliminary No growth in 3 days 02/02/18 13:53 Blood - Peripheral Anaerobic Blood Culture - Preliminary No growth in 3 days - Imaging Impressions Abdomen/Bladder Ultrasound 02/05/18 00:00 CONCLUSION: 1. Left-sided nephroureteral stent. 2. No hydronephrosis. - Procedures 02/01 Cystoscopy, left retrograde pyelogram, left ureteroscopy and left ureteral stent placement Assessment and Plan - Plan 22 years old female Sepsis secondary to Left pyelonephritis- K. Pneumoniae S/P Septic shock Leukocytosis secondary to sepsis- improved Lactic acidosis - resolved - on Ceftriaxone - bilateral US kidneys- with calculi - ff repeat blood cultures to ensure clearance Obstructive uropathy secondary to UPJ stone S/P cystoscopy./left retrograde pyelogram/left ureteroscopy and left ureteral stent placement 02/01 - Urology ff Acute kidney injury- resolved -Monitor renal function, I/O's, electrolytes replacement per protocol. Will need K, Phos replacement today - IVF NS@75ml/hr Increase activity- patient state she up and ambulated around her room to the bathroom Out of bed to [facility] for all meals
[2018-02-05] MEDS: Famotidine 20 MG Tablet PO SCH (21:45)
[2018-02-06] MEDS: Chlorhexidine Gluconate 2% 1 Pack (2 Cloths) TOPICAL SCH (03:58)
[2018-02-06] MEDS: Morphine Sulfate Inj 2 MG/ML Vial IV.PUSH PRN (04:31)
[2018-02-06] MEDS: Senna/Docusate Sodium 8.6/50 MG Tablet PO SCH ×2 (08:21→21:53)
[2018-02-06] MEDS: Acetaminophen 325 MG Tablet PO PRN ×3 (08:22→23:59)
--- NOTE | 2018-02-06 13:02 | P.PN ---
Subjective Interval history: t max 101.6 eary this am still with some midl dysruia and mild flank pain- but overall "better" in good spirirts Physical Exam Vital signs: Vital Signs 02/05/18 13:14 02/05/18 13:48 02/05/18 14:04 Temperature 99.2 F Pulse Rate Respiratory Rate 16 16 Blood Pressure Pulse Oximetry 02/05/18 15:47 02/05/18 17:36 02/05/18 20:00 Temperature 98.4 F 100.1 F H Pulse Rate 74 74 Respiratory Rate 20 16 18 Blood Pressure 110/62 132/77 Pulse Oximetry 96 99 02/06/18 00:00 02/06/18 04:00 02/06/18 07:29 Temperature 99.5 F 101.6 F H Pulse Rate 93 H 82 Respiratory Rate 18 20 16 Blood Pressure 102/61 120/71 Pulse Oximetry 97 100 02/06/18 07:45 02/06/18 08:22 02/06/18 12:00 Temperature 99.6 F 98.4 F Pulse Rate 94 H 94 H Respiratory Rate 18 16 18 Blood Pressure 115/65 130/71 Pulse Oximetry 96 94 L Intake & Output 02/05/18 02/06/18 02/06/18 18:59 06:59 18:59 Intake Total 1200 / 1200 2950 / 2950 720 / 720 Output Total 1800 / 1800 Balance 1200 / 1200 1150 / 1150 720 / 720 Weight 75.7 kg Intake: IV 1200 / 1200 1800 / 1800 NS + KCl 40 mEq Inj 1,000 ML @ 1800 / 1800 84 mls/hr IV.CONT .[id number] [facility] Rx#:[id number] NS Inj 1,000 ML @ 75 mls/hr IV. 1000 / 1000 CONT .[id number] [facility] Rx#:[id number] Zosyn 4.5 GM Premix 4.5 gm In 100 / 100 100 ml @ 200 mls/hr IV.SIG Q6H [facility] Rx#:[id number] Rocephin Inj 2,000 MG In NS Inj 100 / 100 100 ML @ 200 mls/hr IV.SIG Q24H [facility] Rx#:[id number] Oral 1150 / 1150 720 / 720 Output: Urine 1800 / 1800 Other: # Voids 2 2 Date of Last Bowel Movement 02/04/18 02/04/18 Narrative: GENERAL: Awake, alert, young -[place]wegian female no acute distress SKIN: dry and warm HEAD: Atraumatic. Normocephalic. EYES: Pupils equal and round. No scleral icterus. No injection or drainage. ENT: No nasal bleeding or discharge. Mucous membranes dry NECK: Trachea midline. No JVD. CARDIOVASCULAR: regular rhythm RESPIRATORY: No accessory muscle use. Clear to auscultation. Breath sounds equal bilaterally. GASTROINTESTINAL: Abdomen soft, non-tender, No suprapubic discomfort. mild left CVA tenderness. MUSCULOSKELETAL: No obvious deformities. No clubbing. No cyanosis. No edema. NEUROLOGICAL: Awake and alert. No obvious cranial nerve deficits. Motor grossly within normal limits. Normal speech. - Urinary Catheter Management Indwelling Urethral Catheter Cath placed during this visit: yes Reason for continuing: Hourly intake/output Insertion date: 02/01/18 Insertion time: 16:00 Results - Labs CBC & Chem 7: 02/05/18 06:28 02/05/18 06:28 Microbiology 02/05/18 06:28 Blood - Other Aerobic Blood Culture - Preliminary No growth in 1 day 02/05/18 06:28 Blood - Other Anaerobic Blood Culture - Preliminary No growth in 1 day 02/05/18 06:20 Blood - Other Aerobic Blood Culture - Preliminary No growth in 1 day 02/05/18 06:20 Blood - Other Anaerobic Blood Culture - Preliminary No growth in 1 day 02/02/18 13:45 Blood - Peripheral Aerobic Blood Culture - Final Klebsiella pneumoniae 02/02/18 13:45 Blood - Peripheral Anaerobic Blood Culture - Preliminary No growth in 4 days 02/02/18 13:53 Blood - Peripheral Aerobic Blood Culture - Preliminary No growth in 4 days 02/02/18 13:53 Blood - Peripheral Anaerobic Blood Culture - Preliminary No growth in 4 days - Imaging Impressions Abdomen/Bladder Ultrasound 02/05/18 00:00 CONCLUSION: 1. Left-sided nephroureteral stent. 2. No hydronephrosis. - Procedures 02/01 Cystoscopy, left retrograde pyelogram, left ureteroscopy and left ureteral stent placement Assessment and Plan - Plan 22 years old female [place] Pneumoniae Sepsis secondary to Left pyelonephritis S/P Septic shock Leukocytosis secondary to sepsis- improved down to 13 Lactic acidosis - resolved - still with T spikes - on Ceftriaxone - bilateral US kidneys- with calculi - ff repeat blood cultures to ensure clearance Obstructive uropathy secondary to UPJ stone S/P cystoscopy./left retrograde pyelogram/left ureteroscopy and left ureteral stent placement 02/01 - Urology ff Acute kidney injury- resolved -Monitor renal function, I/O's, electrolytes replacement per protocol. Will need K, Phos replacement today - IVF NS@75ml/hr Hypokalemia- K in IVF - recheck in am Increase activity- patient state shes been up and ambulating Out of bed to [facility] for all meals
[2018-02-06 19:35] LABS: Bilirubin,Urine Negative (Negative); Clarity,Urine Clear (Clear); Color,Urine Straw (Yellw/Straw); Glucose,Urine (UA) Negative (Negative); Leukocyte Esterase,Urine Small (Negative); Nitrite,Urine Negative (Negative); Specific Gravity,Urine 1.008 (1.002-1.035); Squamous Epithelial Cell,Urine 3 /hpf (0-5)
[2018-02-06] MEDS: Famotidine 20 MG Tablet PO SCH (21:53)
[2018-02-07 08:17] LABS: Baso % (Auto) 0.4 % (0.0-2.0); Eos # (Auto) 0.3 th/mm3 (0.0-0.4); Eos % (Auto) 2.2 % (0.0-4.0); Hematocrit 29.3 % (35.0-46.0); Hemoglobin 9.6 gm/dL (11.6-15.3); Lymph # (Auto) 1.4 th/mm3 (1.0-4.8); Lymph % (Auto) 11.8 % (9.0-44.0); Mean Corpuscular HGB Conc 32.6 % (32.0-36.0); Mean Corpuscular Hemoglobin 28.1 pg (27.0-34.0); Mean Corpuscular Volume 86.4 fL (80.0-100.0); Mean Platelet Volume 9.2 fL (7.0-11.0); Mono # (Auto) 1.9 th/mm3 (0.0-0.9); Mono % (Auto) 15.7 % (0.0-8.0); Neut # (Auto) 8.4 th/mm3 (1.8-7.7); Neut % (Auto) 69.9 % (16.0-70.0); Platelet Count 221 th/mm3 (150-450); Red Cell Distribution Width 14.6 % (11.6-17.2)
[2018-02-07 08:28] LABS: Anion Gap 7 meq/L (5-15); Blood Urea Nitrogen 4 mg/dL (7-18); Calcium 8.4 mg/dL (8.5-10.1); Carbon Dioxide 25.6 meq/L (21.0-32.0); Chloride 105 meq/L (98-107); Glomerular Filtration Rate Greater Than 89 mL/min (>89); Glucose,Random 79 mg/dL (74-106); Potassium 4.1 meq/L (3.5-5.1); Sodium 138 meq/L (136-145)
[2018-02-07] MEDS: Acetaminophen 325 MG Tablet PO PRN ×2 (09:02→15:50)
[2018-02-07] MEDS: Senna/Docusate Sodium 8.6/50 MG Tablet PO SCH ×2 (09:03→20:43)
[2018-02-07] MEDS: Morphine Sulfate Inj 2 MG/ML Vial IV.PUSH PRN (09:03)
[2018-02-07] MEDS ORDERED: Morphine Sulfate Inj 2 MG/ML Vial IV.PUSH PRN ×2 (12:35→14:00)
--- NOTE | 2018-02-07 12:39 | P.PN ---
Subjective Interval history: no complains no BM + flatus good po- reqeusting for ensure still with fever Physical Exam Vital signs: Vital Signs 02/06/18 16:00 02/06/18 16:33 02/06/18 18:15 Temperature 102.1 F H 99.4 F Pulse Rate 87 Respiratory Rate 18 16 Blood Pressure 125/65 Pulse Oximetry 96 02/06/18 20:00 02/06/18 23:58 02/07/18 00:00 Temperature 99.8 F H 101.0 F H 101.3 F H Pulse Rate 83 88 Respiratory Rate 18 18 Blood Pressure 123/72 131/70 Pulse Oximetry 100 98 02/07/18 01:19 02/07/18 04:12 02/07/18 04:20 Temperature 99.2 F 99.1 F 99.8 F H Pulse Rate 83 Respiratory Rate 18 Blood Pressure 118/68 Pulse Oximetry 98 02/07/18 08:00 02/07/18 11:25 02/07/18 12:00 Temperature 100.3 F H 100.1 F H Pulse Rate 80 94 H Respiratory Rate 18 18 Blood Pressure 120/59 L 102/58 L Pulse Oximetry 99 100 98 Intake & Output 02/06/18 02/07/18 02/07/18 18:59 06:59 18:59 Intake Total 2180 / 2180 Output Total 2400 / 2400 Balance 2180 / 2180 -2400 / -2400 Weight 73.8 kg Intake: IV 1100 / 1100 NS + KCl 40 mEq Inj 1,000 ML @ 1000 / 1000 84 mls/hr IV.CONT .[id number] [facility] Rx#:[id number] Rocephin Inj 2,000 MG In NS Inj 100 / 100 100 ML @ 200 mls/hr IV.SIG Q24H [facility] Rx#:[id number] Oral 1080 / 1080 Output: Urine 2400 / 2400 Other: # Voids 1 Date of Last Bowel Movement 02/04/18 Narrative: Awake, alert, young -[place]rist[place] female no acute distress SKIN: dry and warm HEAD: Atraumatic. Normocephalic. EYES: Pupils equal and round. No scleral icterus. NECK: Trachea midline. No JVD. CARDIOVASCULAR: regular rhythm RESPIRATORY: No accessory muscle use. Clear to auscultation. Breath sounds equal bilaterally. GASTROINTESTINAL: Abdomen soft, non-tender, mild left CVA tenderness. MUSCULOSKELETAL: No obvious deformities. No clubbing. No cyanosis. No edema. NEUROLOGICAL: Awake and alert. No obvious cranial nerve deficits. Motor grossly within normal limits. Normal speech. - Urinary Catheter Management Indwelling Urethral Catheter Cath placed during this visit: yes Reason for continuing: Hourly intake/output Insertion date: 02/01/18 Insertion time: 16:00 Results - Labs CBC & Chem 7: 02/07/18 07:12 02/07/18 07:12 Laboratory Results - last 24 hr 02/06/18 02/07/18 02/07/18 17:31 07:12 07:12 WBC 12.0 H RBC 3.40 L Hgb 9.6 L Hct 29.3 L MCV 86.4 MCH 28.1 MCHC 32.6 RDW 14.6 Plt Count 221 D MPV 9.2 Neut % (Auto) 69.9 Lymph % (Auto) 11.8 [place] % (Auto) 15.7 H Eos % (Auto) 2.2 Baso % (Auto) 0.4 Neut # (Auto) 8.4 H Lymph # (Auto) 1.4 [place] # (Auto) 1.9 H Eos # (Auto) 0.3 Baso # (Auto) 0.0 WBC Differential . Differential Comment Auto diff final Sodium 138 Potassium 4.1 Chloride 105 Carbon Dioxide 25.6 Anion Gap 7 BUN 4 L Creatinine 0.69 Estimated GFR Greater than 89 Random Glucose 79 Calcium 8.4 L Urine Color Straw Urine Clarity Clear Urine pH 8.0 Ur Specific [place] 1.008 Urine Protein Negative Urine Glucose (UA) Negative Urine Ketones Negative Urine Occult Blood Moderate H Urine Nitrate Negative Urine Bilirubin Negative Urine Urobilinogen Less than 2 Ur Leukocyte Esterase Small H Urine RBC 24 H Urine WBC 14 H Ur Squamous Epith Cells 3 Micro UA Comment Culture indicated Ur Microscopic Review Not Reportable Urine Culture Comments Culture indicated Microbiology 02/05/18 06:28 Blood - Other Aerobic Blood Culture - Preliminary No growth in 2 days 02/05/18 06:28 Blood - Other Anaerobic Blood Culture - Preliminary No growth in 2 days 02/05/18 06:20 Blood - Other Aerobic Blood Culture - Preliminary No growth in 2 days 02/05/18 06:20 Blood - Other Anaerobic Blood Culture - Preliminary No growth in 2 days 02/02/18 13:45 Blood - Peripheral Aerobic Blood Culture - Final Klebsiella pneumoniae 02/02/18 13:45 Blood - Peripheral Anaerobic Blood Culture - Final No growth in 5 days 02/02/18 13:53 Blood - Peripheral Aerobic Blood Culture - Final No growth in 5 days 02/02/18 13:53 Blood - Peripheral Anaerobic Blood Culture - Final No growth in 5 days - Procedures 02/01 Cystoscopy, left retrograde pyelogram, left ureteroscopy and left ureteral stent placement Assessment and Plan - Plan 22 years old female [place] Pneumoniae Sepsis secondary to Left pyelonephritis S/P Septic shock Leukocytosis secondary to sepsis- improved down to 13 Lactic acidosis - resolved - on Ceftriaxone - bilateral US kidneys- with calculi - ff repeat blood cultures to ensure clearance - negative so far Obstructive uropathy secondary to UPJ stone S/P cystoscopy./left retrograde pyelogram/left ureteroscopy and left ureteral stent placement 02/01 - Urology ff Acute kidney injury- resolved -Monitor renal function, I/O's, electrolytes replacement per protocol. Will need K, Phos replacement today - IVF NS@75ml/hr Hypokalemia- resolved -K in IVF FEN- ensure brielle flavor with meals Increase activity- patient state shes been up and ambulating Out of bed to [facility] for all meals
--- NOTE | 2018-02-07 17:59 | P.PNID ---
Subjective Remarks: L flank pain " much better" - 04/16 Fevers persist , again 102 Repeat BC and urine clx neg @ 24 hrs no hematuria no rash no cough or SOB Antibiotics: CFTX Allergies/Adverse Reactions: Allergies No Known Allergies Allergy (Verified 01/31/18 19:01) Objective Vital Signs 02/06/18 18:15 02/06/18 20:00 02/06/18 23:58 Temperature 99.4 F 99.8 F H 101.0 F H Pulse Rate 83 Respiratory Rate 18 Blood Pressure 123/72 Pulse Oximetry 100 02/07/18 00:00 02/07/18 01:19 02/07/18 04:12 Temperature 101.3 F H 99.2 F 99.1 F Pulse Rate 88 Respiratory Rate 18 Blood Pressure 131/70 Pulse Oximetry 98 02/07/18 04:20 02/07/18 08:00 02/07/18 11:25 Temperature 99.8 F H 100.3 F H Pulse Rate 83 80 Respiratory Rate 18 18 Blood Pressure 118/68 120/59 L Pulse Oximetry 98 99 100 02/07/18 12:00 02/07/18 16:00 Temperature 100.1 F H 102.1 F H Pulse Rate 94 H 106 H Respiratory Rate 18 18 Blood Pressure 102/58 L 122/67 Pulse Oximetry 98 98 Intake & Output 02/06/18 02/07/18 02/07/18 18:59 06:59 18:59 Intake Total 2180 / 2180 1580 / 1580 Output Total 3000 / 3000 Balance 2180 / 2180 -1420 / -1420 Weight 73.8 kg Intake: IV 1100 / 1100 1100 / 1100 NS + KCl 40 mEq Inj 1,000 ML @ 1000 / 1000 1000 / 1000 84 mls/hr IV.CONT .[id number] [facility] Rx#:[id number] Rocephin Inj 2,000 MG In NS Inj 100 / 100 100 / 100 100 ML @ 200 mls/hr IV.SIG Q24H [facility] Rx#:[id number] Oral 1080 / 1080 480 / 480 Output: Urine 3000 / 3000 Other: # Voids 1 Date of Last Bowel Movement 02/04/18 02/06/18 17:31 Clean Catch Urine Urine Culture - Preliminary No growth in 24 hours 02/05/18 06:28 Blood - Other Aerobic Blood Culture - Preliminary No growth in 2 days 02/05/18 06:28 Blood - Other Anaerobic Blood Culture - Preliminary No growth in 2 days 02/05/18 06:20 Blood - Other Aerobic Blood Culture - Preliminary No growth in 2 days 02/05/18 06:20 Blood - Other Anaerobic Blood Culture - Preliminary No growth in 2 days 02/02/18 13:45 Blood - Peripheral Aerobic Blood Culture - Final Klebsiella pneumoniae 02/02/18 13:45 Blood - Peripheral Anaerobic Blood Culture - Final No growth in 5 days 02/02/18 13:53 Blood - Peripheral Aerobic Blood Culture - Final No growth in 5 days 02/02/18 13:53 Blood - Peripheral Anaerobic Blood Culture - Final No growth in 5 days Lab - Hematology Results 02/07/18 07:12 WBC 12.0 H RBC 3.40 L Hgb 9.6 L Hct 29.3 L MCV 86.4 MCH 28.1 MCHC 32.6 RDW 14.6 Plt Count 221 D MPV 9.2 Neut % (Auto) 69.9 Lymph % (Auto) 11.8 [place] % (Auto) 15.7 H Eos % (Auto) 2.2 Baso % (Auto) 0.4 Neut # (Auto) 8.4 H Lymph # (Auto) 1.4 [place] # (Auto) 1.9 H Eos # (Auto) 0.3 Baso # (Auto) 0.0 WBC Differential . Differential Comment Auto diff final Lab - Chemistry Results 02/07/18 07:12 Sodium 138 Potassium 4.1 Chloride 105 Carbon Dioxide 25.6 Anion Gap 7 BUN 4 L Creatinine 0.69 Estimated GFR Greater than 89 Random Glucose 79 Calcium 8.4 L Imaging: ITS Impressions Abdomen/Pelvis CT 02/01/18 09:41 CONCLUSION: There is a 4 x 3 mm stone in the left proximal ureter near the ureteropelvic junction causing mild left hydronephrosis. The obstructing stone also causes delayed enhancement and enlargement of the left kidney with left perinephric inflammation and trace fluid. Head CT 02/01/18 12:02 CONCLUSION: Negative noncontrast head CT. . Chest X-Ray 02/01/18 13:36 CONCLUSION: Left IJ central line in excellent position. Mild interstitial prominence likely related to expiratory film Abdomen/Bladder Ultrasound 02/05/18 00:00 CONCLUSION: 1. Left-sided nephroureteral stent. 2. No hydronephrosis. Physical Exam: GENERAL: NAD SKIN: Warm and dry. No rash EYES: No scleral icterus. No injection or drainage. ENT: No nasal bleeding or discharge. Mucous membranes pink and moist. CARDIOVASCULAR: Regular rate and rhythm. RESPIRATORY: No accessory muscle use. Clear to auscultation. Breath sounds equal bilaterally. GASTROINTESTINAL: Abdomen soft, non-tender, nondistended. : + some CVA tenderness on the L MUSCULOSKELETAL: Extremities without clubbing, cyanosis, or edema. No obvious deformities. NEUROLOGICAL: Awake and alert. Non focal. Normal speech. PSYCHIATRIC: calm, cooperative Assessment and Plan - Plan Nephrolithiasis, with acute obstructive uropathy - stone in the left proximal ureter near the ureteropelvic junction causing mild left hydronephrosis. - sp stent placement US w/o hydro L pyelonephritis, Kleb pneumo Sepssi 2/2 L pyelonephritis, Kleb pneumo CONSTANCE, resolved Lactic acidemia, resolved Leukocytosis, leukemoid reactio 2/2 sepsis: markedly improved Overall improved Persistent high grade fever Recent NVD (nl vag delivery); breastfeading (pumping for now) cont CFTX monitor temps, WBC monitor clx Will get CT abd/P w IV contrast if persistent fevert and neg clx chk procalcinotine dw Dr Salgado
[2018-02-07] MEDS: Famotidine 20 MG Tablet PO SCH (20:43)
[2018-02-08] MEDS: Acetaminophen 325 MG Tablet PO PRN (01:01)
[2018-02-08] MEDS: Senna/Docusate Sodium 8.6/50 MG Tablet PO SCH ×2 (09:27→20:57)
[2018-02-08 10:51] LABS: Bacteria,Urine Rare /hpf; Bilirubin,Urine Negative (Negative); Glucose,Urine (UA) Negative (Negative); Leukocyte Esterase,Urine Small (Negative); Mucus,Urine Few /lpf (Occasional); Nitrite,Urine Negative (Negative); Renal Epithelial Cells,Urine <1 /hpf; Specific Gravity,Urine 1.006 (1.002-1.035); Squamous Epithelial Cell,Urine 4 /hpf (0-5)
[2018-02-08 10:53] LABS: Clarity,Urine Hazy (Clear); Color,Urine Pink (Yellw/Straw)
--- NOTE | 2018-02-08 13:51 | P.PN ---
Subjective Interval history: t trending down clinically feeling better now with some burning Physical Exam Vital signs: Vital Signs 02/07/18 16:00 02/07/18 18:05 02/07/18 20:00 Temperature 102.1 F H 99.3 F 99.7 F H Pulse Rate 106 H 85 Respiratory Rate 18 18 Blood Pressure 122/67 118/77 Pulse Oximetry 98 99 02/08/18 00:00 02/08/18 04:00 02/08/18 07:50 Temperature 100.3 F H 98.6 F 99.4 F Pulse Rate 90 94 H 76 Respiratory Rate 18 18 18 Blood Pressure 119/73 107/57 L 104/60 Pulse Oximetry 98 100 94 L 02/08/18 11:52 Temperature 99.3 F Pulse Rate 98 H Respiratory Rate 20 Blood Pressure 107/57 L Pulse Oximetry 99 Intake & Output 02/07/18 02/08/18 02/08/18 19:59 06:59 18:59 Intake Total Output Total 650 / 650 Balance -650 / -650 Weight Intake: IV NS + KCl 40 mEq Inj 1,000 ML @ 84 mls/hr IV.CONT .[id number] [facility] Rx#:[id number] Rocephin Inj 2,000 MG In NS Inj 100 ML @ 200 mls/hr IV.SIG Q24H [facility] Rx#:[id number] Oral Output: Urine 650 / 650 Other: Date of Last Bowel Movement 02/07/18 Narrative: Awake, alert, young -[place] female no acute distress SKIN: dry and warm HEAD: Atraumatic. Normocephalic. EYES: Pupils equal and round. No scleral icterus. NECK: Trachea midline. No JVD. CARDIOVASCULAR: regular rhythm RESPIRATORY: No accessory muscle use. Clear to auscultation. Breath sounds equal bilaterally. GASTROINTESTINAL: Abdomen soft, non-tender, mild left CVA tenderness- still MUSCULOSKELETAL: No obvious deformities. No clubbing. No cyanosis. No edema. rectal exam- + exetrnak hemmorhoid- not red, not thrombose up and ambulating- gait steady - Urinary Catheter Management Indwelling Urethral Catheter Cath placed during this visit: yes Reason for continuing: Hourly intake/output Insertion date: 02/01/18 Insertion time: 16:00 Results - Labs CBC & Chem 7: 02/07/18 07:12 02/07/18 07:12 Laboratory Results - last 24 hr 02/07/18 02/08/18 20:08 09:23 Procalcitonin 1.44 H Urine Color [place] Urine Clarity Hazy H Urine pH 7.0 Ur Specific [place] 1.006 Urine Protein Negative Urine Glucose (UA) Negative Urine Ketones Negative Urine Occult Blood Large H Urine Nitrate Negative Urine Bilirubin Negative Urine Urobilinogen Less than 2 Ur Leukocyte Esterase Small H Urine RBC 83 H Urine WBC 11 H Ur Squamous Epith Cells 4 Ur Renal Epithelial Cell <1 Urine Bacteria Rare H Urine Mucus Few H Micro UA Comment Culture indicated Ur Microscopic Review Not Reportable Urine Culture Comments Culture indicated Microbiology 02/07/18 20:03 Blood - Peripheral Aerobic Blood Culture - Preliminary No growth in 1 day 02/07/18 20:03 Blood - Peripheral Anaerobic Blood Culture - Preliminary No growth in 1 day 02/07/18 20:08 Blood - Peripheral Aerobic Blood Culture - Preliminary No growth in 1 day 02/07/18 20:08 Blood - Peripheral Anaerobic Blood Culture - Preliminary No growth in 1 day 02/05/18 06:28 Blood - Other Aerobic Blood Culture - Preliminary No growth in 3 days 02/05/18 06:28 Blood - Other Anaerobic Blood Culture - Preliminary No growth in 3 days 02/05/18 06:20 Blood - Other Aerobic Blood Culture - Preliminary No growth in 3 days 02/05/18 06:20 Blood - Other Anaerobic Blood Culture - Preliminary No growth in 3 days 02/06/18 17:31 Clean Catch Urine Urine Culture - Final No growth in 48 hours 02/02/18 13:45 Blood - Peripheral Aerobic Blood Culture - Final Klebsiella pneumoniae 02/02/18 13:45 Blood - Peripheral Anaerobic Blood Culture - Final No growth in 5 days 02/02/18 13:53 Blood - Peripheral Aerobic Blood Culture - Final No growth in 5 days 02/02/18 13:53 Blood - Peripheral Anaerobic Blood Culture - Final No growth in 5 days - Procedures 02/01 Cystoscopy, left retrograde pyelogram, left ureteroscopy and left ureteral stent placement Assessment and Plan - Plan 22 years old female [place] Pneumoniae Sepsis secondary to Left pyelonephritis S/P Septic shock Leukocytosis secondary to sepsis- improved down to 13 Lactic acidosis - resolved - on Ceftriaxone - bilateral US kidneys- with calculi - ff repeat blood cultures to ensure clearance - 02/07- pending - give x 2 days Puridium q 8 Obstructive uropathy secondary to UPJ stone S/P cystoscopy./left retrograde pyelogram/left ureteroscopy and left ureteral stent placement 02/01 - Urology ff Acute kidney injury- resolved - IVF NS@75ml/hr Hypokalemia- resolved -K in IVF \ EXternal hemorrhoid- advise high fibre diet, po fluids FEN- ensure brielle flavor with meals Increase activity- patient state shes been up and ambulating Out of bed to chair for all meals
[2018-02-08] MEDS: Famotidine 20 MG Tablet PO SCH (20:56)
[2018-02-09] MEDS: Senna/Docusate Sodium 8.6/50 MG Tablet PO SCH (08:05)
--- NOTE | 2018-02-09 12:22 | P.PN ---
Subjective Interval history: doing great, no fever, bvoiding well- no dysruia no flank pain good po states she is set up to see a PCP Physical Exam Vital signs: Vital Signs 02/08/18 16:00 02/08/18 20:00 02/08/18 22:35 Temperature 98.6 F 98.2 F Pulse Rate 85 63 Respiratory Rate 18 18 Blood Pressure 121/63 120/73 Pulse Oximetry 100 100 02/09/18 00:00 02/09/18 03:37 02/09/18 08:00 Temperature 98.3 F 98.1 F 98.4 F Pulse Rate 75 81 86 Respiratory Rate 18 20 Blood Pressure 98/56 L 110/58 L 107/73 Pulse Oximetry 96 98 82 L Intake & Output 02/08/18 02/09/18 02/09/18 18:59 06:59 18:59 Intake Total 1700 / 1700 1000 / 1000 Output Total 650 / 650 Balance 1050 / 1050 1000 / 1000 Weight 72.2 kg Intake: IV 1100 / 1100 1000 / 1000 NS + KCl 40 mEq Inj 1,000 ML @ 1000 / 1000 1000 / 1000 84 mls/hr IV.CONT .[id number] [facility] Rx#:[id number] Rocephin Inj 2,000 MG In NS Inj 100 / 100 100 ML @ 200 mls/hr IV.SIG Q24H [facility] Rx#:[id number] Oral 600 / 600 Output: Urine 650 / 650 Other: Date of Last Bowel Movement 02/07/18 02/08/18 02/08/18 Narrative: Awake, alert, young -Stateless female no acute distress SKIN: dry and warm HEAD: Atraumatic. Normocephalic. EYES: Pupils equal and round. No scleral icterus. NECK: Trachea midline. No JVD. CARDIOVASCULAR: regular rhythm RESPIRATORY: No accessory muscle use. Clear to auscultation. Breath sounds equal bilaterally. GASTROINTESTINAL: Abdomen soft, non-tender, no CVA tenderness MUSCULOSKELETAL: No obvious deformities. No clubbing. No cyanosis. No edema. rectal exam- + exetrnak hemmorhoid- not red, not thrombose up and ambulating- gait steady - Urinary Catheter Management Indwelling Urethral Catheter Cath placed during this visit: yes Reason for continuing: Hourly intake/output Insertion date: 02/01/18 Insertion time: 16:00 Results - Labs CBC & Chem 7: 02/07/18 07:12 02/07/18 07:12 Microbiology 02/07/18 20:03 Blood - Peripheral Aerobic Blood Culture - Preliminary No growth in 2 days 02/07/18 20:03 Blood - Peripheral Anaerobic Blood Culture - Preliminary No growth in 2 days 02/07/18 20:08 Blood - Peripheral Aerobic Blood Culture - Preliminary No growth in 2 days 02/07/18 20:08 Blood - Peripheral Anaerobic Blood Culture - Preliminary No growth in 2 days 02/05/18 06:28 Blood - Other Aerobic Blood Culture - Preliminary No growth in 4 days 02/05/18 06:28 Blood - Other Anaerobic Blood Culture - Preliminary No growth in 4 days 02/05/18 06:20 Blood - Other Aerobic Blood Culture - Preliminary No growth in 4 days 02/05/18 06:20 Blood - Other Anaerobic Blood Culture - Preliminary No growth in 4 days 02/06/18 17:31 Clean Catch Urine Urine Culture - Final No growth in 48 hours - Procedures 02/01 Cystoscopy, left retrograde pyelogram, left ureteroscopy and left ureteral stent placement Assessment and Plan - Plan 22 years old female [place]se[place] Pneumoniae Sepsis secondary to Left pyelonephritis S/P Septic shock Leukocytosis secondary to sepsis- improved down to 13 Lactic acidosis - resolved - on Ceftriaxone - bilateral US kidneys- with calculi - ff repeat blood cultures to ensure clearance - 02/07- negative x 48 hours - give x 2 days Puridium q 8- dysuria resolved - Ciprofloxacin 500 mg po bid x 1 week as OP - no Obstructive uropathy secondary to UPJ stone S/P cystoscopy./left retrograde pyelogram/left ureteroscopy and left ureteral stent placement 02/01 - Urology ff- OP ff up Acute kidney injury- resolved Hypokalemia- resolved \ EXternal hemorrhoid- advise high fibre diet, po fluids FEN- ensure brielle flavor with meals Increase activity- patient state shes been up and ambulating Out of bed to chair for all meals DC home today with po ID antiibotic recommendation- possibly quinolone- will d/ w ID how many more days - post septic shock PCP ff up in3 days OP ffup with urology
--- NOTE | 2018-02-09 14:25 | P.PNID ---
Subjective Remarks: L flank pain resolved afebrile last fever low grade almost 48 hrs ago Repeat BC and urine clx neg @ 24 hrs no hematuria no rash no cough or SOB Antibiotics: CFTX Allergies/Adverse Reactions: Allergies No Known Allergies Allergy (Verified 01/31/18 19:01) Objective Vital Signs 02/08/18 16:00 02/08/18 20:00 02/08/18 22:35 Temperature 98.6 F 98.2 F Pulse Rate 85 63 Respiratory Rate 18 Blood Pressure 121/63 120/73 Pulse Oximetry 100 100 02/09/18 00:00 02/09/18 03:37 02/09/18 08:00 Temperature 98.3 F 98.1 F 98.4 F Pulse Rate 75 81 86 Respiratory Rate 20 Blood Pressure 98/56 L 110/58 L 107/73 Pulse Oximetry 96 98 82 L Intake & Output 02/08/18 02/09/18 02/09/18 18:59 06:59 18:59 Intake Total 1700 / 1700 1000 / 1000 100 / 100 Output Total 650 / 650 Balance 1050 / 1050 1000 / 1000 100 / 100 Weight 72.2 kg Intake: IV 1100 / 1100 1000 / 1000 100 / 100 NS + KCl 40 mEq Inj 1,000 ML @ 1000 / 1000 1000 / 1000 84 mls/hr IV.CONT .[id number] [facility] Rx#:[id number] Rocephin Inj 2,000 MG In NS Inj 100 / 100 100 / 100 100 ML @ 200 mls/hr IV.SIG Q24H [facility] Rx#:[id number] Oral 600 / 600 Output: Urine 650 / 650 Other: Date of Last Bowel Movement 02/07/18 02/08/18 02/08/18 02/08/18 09:23 Random Urine Urine Culture - Preliminary No growth in 24 hours 02/07/18 20:03 Blood - Peripheral Aerobic Blood Culture - Preliminary No growth in 2 days 02/07/18 20:03 Blood - Peripheral Anaerobic Blood Culture - Preliminary No growth in 2 days 02/07/18 20:08 Blood - Peripheral Aerobic Blood Culture - Preliminary No growth in 2 days 02/07/18 20:08 Blood - Peripheral Anaerobic Blood Culture - Preliminary No growth in 2 days 02/05/18 06:28 Blood - Other Aerobic Blood Culture - Preliminary No growth in 4 days 02/05/18 06:28 Blood - Other Anaerobic Blood Culture - Preliminary No growth in 4 days 02/05/18 06:20 Blood - Other Aerobic Blood Culture - Preliminary No growth in 4 days 02/05/18 06:20 Blood - Other Anaerobic Blood Culture - Preliminary No growth in 4 days 02/06/18 17:31 Clean Catch Urine Urine Culture - Final No growth in 48 hours 02/02/18 13:45 Blood - Peripheral Aerobic Blood Culture - Final Klebsiella pneumoniae 02/02/18 13:45 Blood - Peripheral Anaerobic Blood Culture - Final No growth in 5 days 02/02/18 13:53 Blood - Peripheral Aerobic Blood Culture - Final No growth in 5 days 02/02/18 13:53 Blood - Peripheral Anaerobic Blood Culture - Final No growth in 5 days Lab - Chemistry Results 02/07/18 20:08 Procalcitonin 1.44 H Imaging: ITS Impressions Abdomen/Pelvis CT 02/01/18 09:41 CONCLUSION: There is a 4 x 3 mm stone in the left proximal ureter near the ureteropelvic junction causing mild left hydronephrosis. The obstructing stone also causes delayed enhancement and enlargement of the left kidney with left perinephric inflammation and trace fluid. Head CT 02/01/18 12:02 CONCLUSION: Negative noncontrast head CT. . Chest X-Ray 02/01/18 13:36 CONCLUSION: Left IJ central line in excellent position. Mild interstitial prominence likely related to expiratory film Abdomen/Bladder Ultrasound 02/05/18 00:00 CONCLUSION: 1. Left-sided nephroureteral stent. 2. No hydronephrosis. Physical Exam: GENERAL: NAD SKIN: Warm and dry. No rash EYES: No scleral icterus. No injection or drainage. ENT: Mucous membranes pink and moist. RESPIRATORY: No accessory muscle use. Clear to auscultation. Breathing inlaboured GASTROINTESTINAL: Abdomen soft, non-tender, nondistended. :no CVA tenderness on the L MUSCULOSKELETAL: Extremities without clubbing, cyanosis, or edema. NEUROLOGICAL: Awake and alert. Non focal. Normal speech. PSYCHIATRIC: calm, cooperative Assessment and Plan - Plan Nephrolithiasis, with acute obstructive uropathy - stone in the left proximal ureter near the ureteropelvic junction causing mild left hydronephrosis. - sp stent placement US w/o hydro L pyelonephritis, Kleb pneumo Sepssi 2/2 L pyelonephritis, Kleb pneumo CONSTANCE, resolved Lactic acidemia, resolved Leukocytosis, leukemoid reactio 2/2 sepsis: markedly improved Overall improved Persistent high grade fever: resolved Recent NVD (nl vag delivery); breastfeading (pumping for now) change CFTX to CIPRO 500 BID x 1 week Pt was instructed to discard pumped mildk while on cipro Pt was instructed to report diarrhea, nause, vomiting, tendon pain and rash to her PCP OK to dc home dakota Salgado
[2018-02-10] MEDS ORDERED: Ciprofloxacin 500 MG Tablet PO SCH (09:00)
== END 2018-02-09 17:18 | disposition home or self-care (01) ==
LOC: NEPC 08:38 → NEDA 11:04 → HIMC 12:30 → N05 02-04 16:47
PROVIDERS: ADMIT Internal Medicine; ATTEND Internal Medicine